=== PATIENT | male | born 1950 | race Caucasian/White ===

== ENCOUNTER 2016-11-12 10:01 | Outpatient (CLI) | payer MEDICARE, OTHER ==
[2016-09-15 00:21] VITALS: BP 92/73
[~2016-11-12 10:01] MED LIST: MEROPENEM 1,000 MG IV.SOLN. IV ONE
[2016-11-12] MEDS: SODIUM CHLORIDE 0.9% IV SCH ×2 (14:37→21:00)
[2016-11-12] MEDS: HEPARIN SODIUM,PORCINE 30 UNITS INJ IV SCH ×2 (14:37→21:50)
[2016-11-12] MEDS: MEROPENEM IV SCH ×2 (14:37→21:00)
[2016-11-12] MEDS: 0.9 % SODIUM CHLORIDE 50 ML IV SCH ×2 (14:37→21:25)
[2016-11-12] MEDS: SALINE FLUSH 10 ML DISP.SYRIN IVF SCH ×2 (14:37→21:00)
== END 2016-11-12 10:02 ==
LOC: INF 10:01
PROVIDERS: ATTEND Internal Medicine
DX: T82.7XXA Infection and inflammatory reaction due to other cardiac and vascular devices, implants and grafts, initial encounter (principal); R53.81 Other malaise; R50.9 Fever, unspecified; Z79.01 Long term (current) use of anticoagulants; Y92.9 Unspecified place or not applicable; Y93.9 Activity, unspecified
CPT/HCPCS: 96365; 96366; J2185

== ENCOUNTER 2016-11-13 10:28 | Outpatient (CLI) | payer MEDICARE, OTHER ==
[2016-09-15 00:21] VITALS: BP 92/73
[~2016-11-13 10:28] MED LIST changes: +0.9 % SODIUM CHLORIDE 50 ML IV SCH; +HEPARIN SODIUM,PORCINE 30 UNITS INJ IV SCH; +MEROPENEM IV SCH; +SALINE FLUSH 10 ML DISP.SYRIN IVF SCH; +SODIUM CHLORIDE 0.9% IV SCH
[2016-11-13 10:51] LABS: BASOPHILS % 0.2 (0.0-1.5); EOSINOPHILS % 0.9 % (0.0-6.8); LYMPHOCYTES # 1.7 # k/uL (0.6-4.0); MEAN CORPUSCULAR HEMOGLOBIN 23.8 pg (28.0-34.0); MONOCYTES # 0.4 # k/uL (0.0-0.9); MONOCYTES % 3.9 % (0.0-11.0); NEUTROPHILS # 8.7 # k/uL (1.4-7.7)
[2016-11-13 11:17] LABS: eGFR (African) > 60; eGFR (Non-African) 50
== END 2016-11-13 10:30 ==
LOC: INF 10:28
PROVIDERS: ATTEND Internal Medicine
DX: T82.7XXA Infection and inflammatory reaction due to other cardiac and vascular devices, implants and grafts, initial encounter (principal); R53.81 Other malaise; R50.9 Fever, unspecified; Z79.01 Long term (current) use of anticoagulants; Y92.9 Unspecified place or not applicable; Y93.9 Activity, unspecified
CPT/HCPCS: 36415; 80053; 83615; 85025; 85610; 96365; 96366; J2185

== ENCOUNTER 2016-11-14 09:49 | Outpatient (CLI) | payer MEDICARE, OTHER ==
[2016-09-15 00:21] VITALS: BP 92/73
[~2016-11-14 09:49] MED LIST changes: +0.9 % SODIUM CHLORIDE 50 ML IV ONE; -0.9 % SODIUM CHLORIDE 50 ML IV SCH; -HEPARIN SODIUM,PORCINE 30 UNITS INJ IV SCH; -MEROPENEM IV SCH; -SALINE FLUSH 10 ML DISP.SYRIN IVF SCH; -SODIUM CHLORIDE 0.9% IV SCH
[2016-11-14] MEDS: SALINE FLUSH 10 ML DISP.SYRIN IVF SCH ×2 (10:14→23:03)
[2016-11-14] MEDS: SODIUM CHLORIDE 0.9% IV SCH ×2 (10:15→23:03)
[2016-11-14] MEDS: MEROPENEM IV SCH ×2 (10:15→23:03)
[2016-11-14] MEDS: HEPARIN SODIUM,PORCINE 30 UNITS INJ IV SCH ×2 (11:10→23:04)
[2016-11-14] MEDS: 0.9 % SODIUM CHLORIDE 50 ML IV SCH ×2 (11:40→23:04)
== END 2016-11-14 09:50 ==
LOC: INF 09:49
PROVIDERS: ATTEND Internal Medicine
DX: T82.7XXA Infection and inflammatory reaction due to other cardiac and vascular devices, implants and grafts, initial encounter (principal); R53.81 Other malaise; R50.9 Fever, unspecified; Z79.01 Long term (current) use of anticoagulants; Y92.9 Unspecified place or not applicable; Y93.9 Activity, unspecified
CPT/HCPCS: 96365; 96366; J2185

== ENCOUNTER 2016-11-15 09:42 | Outpatient (CLI) | payer MEDICARE, OTHER ==
[2016-09-15 00:21] VITALS: BP 92/73
[~2016-11-15 09:42] MED LIST changes: +0.9 % SODIUM CHLORIDE 100 ML IV.SOLN IV ONE; -0.9 % SODIUM CHLORIDE 50 ML IV ONE; +0.9 % SODIUM CHLORIDE 50 ML IV.SOLN IV ONE; +HEPARIN SODIUM,PORCINE 30 UNITS INJ IV ONE; +SALINE FLUSH 10 ML DISP.SYRIN IVF ONE
[2016-11-15] MEDS: SODIUM CHLORIDE 0.9% IV SCH ×2 (10:15→22:02)
[2016-11-15] MEDS: MEROPENEM IV SCH ×2 (10:15→22:02)
[2016-11-15] MEDS: SALINE FLUSH 10 ML DISP.SYRIN IVF SCH ×2 (10:16→22:03)
[2016-11-15] MEDS: 0.9 % SODIUM CHLORIDE 50 ML IV SCH ×2 (10:36→22:03)
[2016-11-15] MEDS: HEPARIN SODIUM,PORCINE 30 UNITS INJ IV SCH ×2 (10:37→22:04)
== END 2016-11-15 22:00 | disposition home or self-care (01) ==
LOC: INF 09:42
PROVIDERS: ATTEND Internal Medicine
DX: T82.7XXA Infection and inflammatory reaction due to other cardiac and vascular devices, implants and grafts, initial encounter (principal); R53.81 Other malaise; R50.9 Fever, unspecified; Z79.01 Long term (current) use of anticoagulants; Y92.9 Unspecified place or not applicable; Y93.9 Activity, unspecified
CPT/HCPCS: 96365; 96366; J2185

== ENCOUNTER 2016-11-16 09:49 | Outpatient (CLI) | payer MEDICARE, OTHER ==
[2016-09-15 00:21] VITALS: BP 92/73
[2016-11-16] MEDS: SODIUM CHLORIDE 0.9% IV SCH ×2 (10:09→21:54)
[2016-11-16] MEDS: MEROPENEM IV SCH ×2 (10:09→21:54)
[2016-11-16] MEDS: SALINE FLUSH 10 ML DISP.SYRIN IVF SCH ×2 (10:10→21:55)
[2016-11-16] MEDS: 0.9 % SODIUM CHLORIDE 50 ML IV SCH ×2 (10:46→21:55)
[2016-11-16] MEDS: HEPARIN SODIUM,PORCINE 30 UNITS INJ IV SCH ×2 (10:46→21:54)
== END 2016-11-16 09:50 ==
LOC: INF 09:49
PROVIDERS: ATTEND Internal Medicine
DX: T82.7XXA Infection and inflammatory reaction due to other cardiac and vascular devices, implants and grafts, initial encounter (principal); R53.81 Other malaise; R50.9 Fever, unspecified; Z79.01 Long term (current) use of anticoagulants; Y92.9 Unspecified place or not applicable; Y93.9 Activity, unspecified
CPT/HCPCS: 96365; 96366; J2185

== ENCOUNTER 2016-11-17 12:57 | Outpatient (CLI) | payer MEDICARE, OTHER ==
[2016-09-15 00:21] VITALS: BP 92/73
[~2016-11-17 12:57] MED LIST changes: +0.9 % SODIUM CHLORIDE 50 ML IV SCH; +HEPARIN SODIUM,PORCINE 30 UNITS INJ IV SCH; +MEROPENEM IV SCH; +SALINE FLUSH 10 ML DISP.SYRIN IVF SCH; +SODIUM CHLORIDE 0.9% IV SCH
== END 2016-11-17 14:00 ==
LOC: INF 12:57
PROVIDERS: ATTEND Internal Medicine
DX: T82.7XXA Infection and inflammatory reaction due to other cardiac and vascular devices, implants and grafts, initial encounter (principal); R53.81 Other malaise; R50.9 Fever, unspecified; Z79.01 Long term (current) use of anticoagulants; Y92.9 Unspecified place or not applicable; Y93.9 Activity, unspecified
CPT/HCPCS: 96365; 96366; J2185

== ENCOUNTER 2016-11-18 12:11 | Outpatient (CLI) | payer MEDICARE, OTHER ==
[2016-09-15 00:21] VITALS: BP 92/73
[~2016-11-18 12:11] MED LIST changes: -0.9 % SODIUM CHLORIDE 50 ML IV SCH; -HEPARIN SODIUM,PORCINE 30 UNITS INJ IV SCH; -MEROPENEM IV SCH; -SALINE FLUSH 10 ML DISP.SYRIN IVF SCH; -SODIUM CHLORIDE 0.9% IV SCH
[2016-11-18] MEDS: SALINE FLUSH 10 ML DISP.SYRIN IVF SCH ×2 (13:26→22:00)
[2016-11-18] MEDS: HEPARIN SODIUM,PORCINE 30 UNITS INJ IV SCH ×2 (13:26→23:03)
[2016-11-18] MEDS: MEROPENEM IV SCH ×2 (13:27→22:00)
[2016-11-18] MEDS: SODIUM CHLORIDE 0.9% IV SCH ×2 (13:27→22:00)
[2016-11-18] MEDS: 0.9 % SODIUM CHLORIDE 50 ML IV SCH ×2 (13:28→22:25)
== END 2016-11-18 12:12 ==
LOC: INF 12:11
PROVIDERS: ATTEND Internal Medicine
DX: T82.7XXA Infection and inflammatory reaction due to other cardiac and vascular devices, implants and grafts, initial encounter (principal); R53.81 Other malaise; R50.9 Fever, unspecified; Z79.01 Long term (current) use of anticoagulants; Y92.9 Unspecified place or not applicable; Y93.9 Activity, unspecified
CPT/HCPCS: 96365; 96366; J2185

== ENCOUNTER 2016-11-19 13:19 | Outpatient (CLI) | payer MEDICARE, OTHER ==
[2016-09-15 00:21] VITALS: BP 92/73
[~2016-11-19 13:19] MED LIST changes: +0.9 % SODIUM CHLORIDE 50 ML IV ONE; +0.9 % SODIUM CHLORIDE 50 ML IV SCH; +HEPARIN SODIUM,PORCINE 30 UNITS INJ IV SCH; +MEROPENEM IV SCH; +SALINE FLUSH 10 ML DISP.SYRIN IVF SCH; +SODIUM CHLORIDE 0.9% IV SCH
== END 2016-11-19 13:20 ==
LOC: INF 13:19
PROVIDERS: ATTEND Internal Medicine
DX: T82.7XXA Infection and inflammatory reaction due to other cardiac and vascular devices, implants and grafts, initial encounter (principal); R53.81 Other malaise; R50.9 Fever, unspecified; Z79.01 Long term (current) use of anticoagulants; Y92.9 Unspecified place or not applicable; Y93.9 Activity, unspecified
CPT/HCPCS: 96365; 96366; J2185

== ENCOUNTER 2016-11-20 09:39 | Outpatient (CLI) | payer MEDICARE, OTHER ==
[2016-09-15 00:21] VITALS: BP 92/73
[2016-11-20 10:09] LABS: BASOPHILS % 0.2 (0.0-1.5); EOSINOPHILS % 0.9 % (0.0-6.8); LYMPHOCYTES # 1.6 # k/uL (0.6-4.0); MEAN CORPUSCULAR HEMOGLOBIN 23.2 pg (28.0-34.0); MONOCYTES # 0.4 # k/uL (0.0-0.9); MONOCYTES % 4.5 % (0.0-11.0); NEUTROPHILS # 7.2 # k/uL (1.4-7.7)
[2016-11-20 10:48] LABS: eGFR (African) > 60; eGFR (Non-African) > 60
== END 2016-11-20 09:40 ==
LOC: INF 09:39
PROVIDERS: ATTEND Internal Medicine
DX: T82.7XXA Infection and inflammatory reaction due to other cardiac and vascular devices, implants and grafts, initial encounter (principal); R53.81 Other malaise; R50.9 Fever, unspecified; Z79.01 Long term (current) use of anticoagulants; Y92.9 Unspecified place or not applicable; Y93.9 Activity, unspecified
CPT/HCPCS: 36415; 80053; 83615; 85025; 85610; J2185

== ENCOUNTER 2016-11-21 11:06 | Outpatient (CLI) | payer MEDICARE, OTHER ==
[2016-09-15 00:21] VITALS: BP 92/73
[~2016-11-21 11:06] MED LIST changes: -0.9 % SODIUM CHLORIDE 50 ML IV ONE; +PENTAMIDINE ISETHIONATE 300 MG NEB SCH
== END 2016-11-21 11:08 ==
LOC: INF 11:06
PROVIDERS: ATTEND Internal Medicine
DX: T82.7XXA Infection and inflammatory reaction due to other cardiac and vascular devices, implants and grafts, initial encounter (principal); R53.81 Other malaise; R50.9 Fever, unspecified; J84.89 Other specified interstitial pulmonary diseases; Z41.8 Encounter for other procedures for purposes other than remedying health state; Z79.01 Long term (current) use of anticoagulants
CPT/HCPCS: 94640; 94760; 96365; 96366; J2185

== ENCOUNTER 2016-11-22 09:59 | Outpatient (CLI) | payer MEDICARE, OTHER ==
[2016-09-15 00:21] VITALS: BP 92/73
[~2016-11-22 09:59] MED LIST changes: -0.9 % SODIUM CHLORIDE 50 ML IV SCH; -HEPARIN SODIUM,PORCINE 30 UNITS INJ IV SCH; -MEROPENEM IV SCH; -PENTAMIDINE ISETHIONATE 300 MG NEB SCH; -SALINE FLUSH 10 ML DISP.SYRIN IVF SCH; -SODIUM CHLORIDE 0.9% IV SCH
[2016-11-22] MEDS: SALINE FLUSH 10 ML DISP.SYRIN IVF SCH ×2 (10:15→21:09)
[2016-11-22] MEDS: SODIUM CHLORIDE 0.9% IV SCH ×2 (10:15→21:10)
[2016-11-22] MEDS: MEROPENEM IV SCH ×2 (10:15→21:10)
[2016-11-22] MEDS: 0.9 % SODIUM CHLORIDE 50 ML IV SCH ×2 (10:45→21:41)
[2016-11-22] MEDS: HEPARIN SODIUM,PORCINE 30 UNITS INJ IV SCH ×2 (10:55→21:50)
== END 2016-11-22 10:00 ==
LOC: INF 09:59
PROVIDERS: ATTEND Internal Medicine
DX: T82.7XXA Infection and inflammatory reaction due to other cardiac and vascular devices, implants and grafts, initial encounter (principal); R53.81 Other malaise; R50.9 Fever, unspecified; Z79.01 Long term (current) use of anticoagulants; Y92.9 Unspecified place or not applicable; Y93.9 Activity, unspecified
CPT/HCPCS: 96365; 96366; J2185

== ENCOUNTER 2016-11-23 09:23 | Outpatient (CLI) | payer MEDICARE, OTHER ==
[2016-09-15 00:21] VITALS: BP 92/73
[2016-11-23] MEDS: MEROPENEM IV SCH ×2 (11:03→22:29)
[2016-11-23] MEDS: SODIUM CHLORIDE 0.9% IV SCH ×2 (11:03→22:29)
[2016-11-23] MEDS: HEPARIN SODIUM,PORCINE 30 UNITS INJ IV SCH ×2 (11:03→22:30)
[2016-11-23] MEDS: SALINE FLUSH 10 ML DISP.SYRIN IVF SCH ×2 (11:04→22:28)
[2016-11-23] MEDS: 0.9 % SODIUM CHLORIDE 50 ML IV SCH ×2 (11:04→22:30)
== END 2016-11-23 22:15 | disposition home or self-care (01) ==
LOC: INF 09:23
PROVIDERS: ATTEND Internal Medicine
DX: T82.7XXA Infection and inflammatory reaction due to other cardiac and vascular devices, implants and grafts, initial encounter (principal); R53.81 Other malaise; R50.9 Fever, unspecified; Z79.01 Long term (current) use of anticoagulants; Y92.9 Unspecified place or not applicable; Y93.9 Activity, unspecified
CPT/HCPCS: 96365; 96366; J2185

== ENCOUNTER 2016-11-24 12:23 | Outpatient (CLI) | payer MEDICARE, OTHER ==
[2016-09-15 00:21] VITALS: BP 92/73
[2016-11-24] MEDS: SALINE FLUSH 10 ML DISP.SYRIN IVF SCH ×2 (12:53→22:39)
[2016-11-24] MEDS: MEROPENEM IV SCH ×2 (12:54→22:38)
[2016-11-24] MEDS: SODIUM CHLORIDE 0.9% IV SCH ×2 (12:54→22:38)
[2016-11-24] MEDS: 0.9 % SODIUM CHLORIDE 50 ML IV SCH ×2 (13:35→22:39)
[2016-11-24] MEDS: HEPARIN SODIUM,PORCINE 30 UNITS INJ IV SCH ×2 (13:45→22:38)
== END 2016-11-24 12:24 ==
LOC: INF 12:23
PROVIDERS: ATTEND Internal Medicine
DX: T82.7XXA Infection and inflammatory reaction due to other cardiac and vascular devices, implants and grafts, initial encounter (principal); R53.81 Other malaise; R50.9 Fever, unspecified; Z79.01 Long term (current) use of anticoagulants; Y92.9 Unspecified place or not applicable; Y93.9 Activity, unspecified
CPT/HCPCS: 96365; 96366; J2185

== ENCOUNTER 2016-11-25 13:44 | Outpatient (CLI) | payer MEDICARE, OTHER ==
[2016-09-15 00:21] VITALS: BP 92/73
[2016-11-25] MEDS: SODIUM CHLORIDE 0.9% IV SCH ×2 (14:50→21:44)
[2016-11-25] MEDS: MEROPENEM IV SCH ×2 (14:50→21:44)
[2016-11-25] MEDS: SALINE FLUSH 10 ML DISP.SYRIN IVF SCH ×2 (14:50→21:44)
[2016-11-25] MEDS: 0.9 % SODIUM CHLORIDE 50 ML IV SCH ×2 (15:35→22:22)
[2016-11-25] MEDS: HEPARIN SODIUM,PORCINE 30 UNITS INJ IV SCH ×2 (15:45→22:23)
== END 2016-11-25 13:45 ==
LOC: INF 13:44
PROVIDERS: ATTEND Internal Medicine
DX: T82.7XXA Infection and inflammatory reaction due to other cardiac and vascular devices, implants and grafts, initial encounter (principal); R53.81 Other malaise; R50.9 Fever, unspecified; Z79.01 Long term (current) use of anticoagulants; Y92.9 Unspecified place or not applicable; Y93.9 Activity, unspecified
CPT/HCPCS: 96365; 96366; J2185

== ENCOUNTER 2016-11-26 11:08 | Outpatient (CLI) | payer MEDICARE, OTHER ==
[2016-09-15 00:21] VITALS: BP 92/73
[~2016-11-26 11:08] MED LIST changes: +0.9 % SODIUM CHLORIDE 50 ML IV ONE
[2016-11-26] MEDS: SALINE FLUSH 10 ML DISP.SYRIN IVF SCH ×2 (11:31→23:17)
[2016-11-26] MEDS: SODIUM CHLORIDE 0.9% IV SCH ×2 (11:31→23:17)
[2016-11-26] MEDS: MEROPENEM IV SCH ×2 (11:31→23:17)
[2016-11-26] MEDS: 0.9 % SODIUM CHLORIDE 50 ML IV SCH ×2 (11:55→23:17)
[2016-11-26] MEDS: HEPARIN SODIUM,PORCINE 30 UNITS INJ IV SCH ×2 (12:05→23:18)
[2016-11-26 13:51] LABS: BASOPHILS % 0.2 (0.0-1.5); EOSINOPHILS % 0.7 % (0.0-6.8); LYMPHOCYTES # 0.5 # k/uL (0.6-4.0); MEAN CORPUSCULAR HEMOGLOBIN 23.6 pg (28.0-34.0); MONOCYTES # 0.3 # k/uL (0.0-0.9); MONOCYTES % 3.6 % (0.0-11.0); NEUTROPHILS # 7.2 # k/uL (1.4-7.7)
[2016-11-26 13:55] LABS: eGFR (African) > 60; eGFR (Non-African) 59
== END 2016-11-26 11:10 ==
LOC: INF 11:08
PROVIDERS: ATTEND Internal Medicine
DX: T82.7XXA Infection and inflammatory reaction due to other cardiac and vascular devices, implants and grafts, initial encounter (principal); R53.81 Other malaise; R50.9 Fever, unspecified; Z79.01 Long term (current) use of anticoagulants; Y92.9 Unspecified place or not applicable; Y93.9 Activity, unspecified
CPT/HCPCS: 80053; 83880; 85025; J2185; 96365; 96366

== ENCOUNTER 2016-11-26 12:30 | Outpatient (CLI) | payer MEDICARE, OTHER ==
[2016-09-15 00:21] VITALS: BP 92/73
--- NOTE | 2016-11-26 16:59 | Diagnostic Imaging Report ---
[facility] [address] [facility].[address] [address] ~ ~ ~ ~ Report Submission Date: Nov 26, 2016 12:59:05 PM NURSES' REGISTRY DIRECTOR Patient ~ Study Name: ERVIN ROJAS ~ Date: Nov 26, 2016 12:41:29 PM NURSES' REGISTRY DIRECTOR ~ Modality Type: CR Gender: M ~ Description: CHEST : 52 ~ Institution: [facility] Physician: FAVIAN LIRA ~ ~ ~ ~ Chest 2 views History: Shortness of breath Findings: Cardiomegaly, pulmonary vascular congestion, and mild pulmonary edema are observed. A left ventricular assist device, dual lead implantable cardiac defibrillator, right atrial catheter, median sternotomy, and multilevel cervical fusion hardware are observed. There is no pleural effusion or confluent air space infiltrate. Impression: Mild congestive heart failure and extensive postoperative change. Lung volumes have increased since the August 06, 2016 exam. ~ Electronically signed on Nov 26, 2016 12:59:05 PM NURSES' REGISTRY DIRECTOR by: Abraham ANGELA
== END 2016-11-26 12:31 ==
LOC: RAD 12:30
PROVIDERS: ATTEND Nurse Practitioner
DX: R06.02 Shortness of breath (principal); I50.22 Chronic systolic (congestive) heart failure
CPT/HCPCS: 71020; 85610

== ENCOUNTER 2016-11-27 10:03 | Outpatient (CLI) | payer MEDICARE, OTHER ==
[2016-09-15 00:21] VITALS: BP 92/73
[~2016-11-27 10:03] MED LIST changes: +0.9 % SODIUM CHLORIDE 50 ML IV SCH; +HEPARIN SODIUM,PORCINE 30 UNITS INJ IV SCH; +MEROPENEM IV SCH; +SALINE FLUSH 10 ML DISP.SYRIN IVF SCH; +SODIUM CHLORIDE 0.9% IV SCH
== END 2016-11-27 10:04 ==
LOC: INF 10:03
PROVIDERS: ATTEND Internal Medicine
DX: T82.7XXA Infection and inflammatory reaction due to other cardiac and vascular devices, implants and grafts, initial encounter (principal); R53.81 Other malaise; R50.9 Fever, unspecified; Z79.01 Long term (current) use of anticoagulants; Y92.9 Unspecified place or not applicable; Y93.9 Activity, unspecified
CPT/HCPCS: 96365; 96366; J2185

== ENCOUNTER 2016-11-28 11:30 | Outpatient (CLI) | payer MEDICARE, OTHER ==
[2016-09-15 00:21] VITALS: BP 92/73
[~2016-11-28 11:30] MED LIST changes: -0.9 % SODIUM CHLORIDE 50 ML IV ONE; -0.9 % SODIUM CHLORIDE 50 ML IV SCH; -HEPARIN SODIUM,PORCINE 30 UNITS INJ IV SCH; -MEROPENEM IV SCH; -SALINE FLUSH 10 ML DISP.SYRIN IVF SCH; -SODIUM CHLORIDE 0.9% IV SCH
[2016-11-28] MEDS: HEPARIN SODIUM,PORCINE 30 UNITS INJ IV SCH ×2 (18:13→22:50)
[2016-11-28] MEDS: MEROPENEM IV SCH ×2 (18:14→22:00)
[2016-11-28] MEDS: SODIUM CHLORIDE 0.9% IV SCH ×2 (18:14→22:00)
[2016-11-28] MEDS: SALINE FLUSH 10 ML DISP.SYRIN IVF SCH ×2 (18:16→22:00)
[2016-11-28] MEDS: 0.9 % SODIUM CHLORIDE 50 ML IV SCH ×2 (18:16→22:25)
== END 2016-11-28 11:32 ==
LOC: INF 11:30
PROVIDERS: ATTEND Internal Medicine
DX: T82.7XXA Infection and inflammatory reaction due to other cardiac and vascular devices, implants and grafts, initial encounter (principal); R53.81 Other malaise; R50.9 Fever, unspecified; Z79.01 Long term (current) use of anticoagulants; Y92.9 Unspecified place or not applicable; Y93.9 Activity, unspecified
CPT/HCPCS: 96365; 96366; J2185

== ENCOUNTER 2016-11-29 10:00 | Outpatient (CLI) | payer MEDICARE, OTHER ==
[2016-09-15 00:21] VITALS: BP 92/73
[~2016-11-29 10:00] MED LIST changes: +0.9 % SODIUM CHLORIDE 50 ML IV SCH; +HEPARIN SODIUM,PORCINE 30 UNITS INJ IV SCH; +MEROPENEM IV SCH; +SALINE FLUSH 10 ML DISP.SYRIN IVF SCH; +SODIUM CHLORIDE 0.9% IV SCH
== END 2016-11-29 10:02 ==
LOC: INF 10:00
PROVIDERS: ATTEND Internal Medicine
DX: T82.7XXA Infection and inflammatory reaction due to other cardiac and vascular devices, implants and grafts, initial encounter (principal); R53.81 Other malaise; R50.9 Fever, unspecified; Z79.01 Long term (current) use of anticoagulants; Y92.9 Unspecified place or not applicable; Y93.9 Activity, unspecified
CPT/HCPCS: 96365; 96366; J2185

== ENCOUNTER 2016-11-30 12:25 | Outpatient (CLI) | payer MEDICARE, OTHER ==
[2016-09-15 00:21] VITALS: BP 92/73
[~2016-11-30 12:25] MED LIST changes: +0.9 % SODIUM CHLORIDE 50 ML IV ONE
== END 2016-11-30 12:26 ==
LOC: INF 12:25
PROVIDERS: ATTEND Internal Medicine
DX: T82.7XXA Infection and inflammatory reaction due to other cardiac and vascular devices, implants and grafts, initial encounter (principal); R53.81 Other malaise; R50.9 Fever, unspecified; Z79.01 Long term (current) use of anticoagulants; Y92.9 Unspecified place or not applicable; Y93.9 Activity, unspecified
CPT/HCPCS: 96365; J2185

== ENCOUNTER 2016-12-01 02:45 | Outpatient (CLI) | payer MEDICARE, OTHER ==
[2016-09-15 00:21] VITALS: BP 92/73
[2016-12-01] MEDS ORDERED: SALINE FLUSH 10 ML DISP.SYRIN IVF ONE (08:00)
[2016-12-01] MEDS ORDERED: 0.9 % SODIUM CHLORIDE 100 ML IV.SOLN IV ONE (08:00)
[2016-12-01] MEDS ORDERED: HEPARIN SODIUM,PORCINE 30 UNITS INJ IV ONE (08:00)
[2016-12-01] MEDS ORDERED: MEROPENEM 1,000 MG IV.SOLN. IV ONE (08:00)
[2016-12-01] MEDS ORDERED: 0.9 % SODIUM CHLORIDE 50 ML IV.SOLN IV ONE (08:00)
[2016-12-01] MEDS ORDERED: SALINE FLUSH 10 ML DISP.SYRIN IVF SCH (09:00)
[2016-12-01] MEDS ORDERED: SODIUM CHLORIDE 0.9% IV SCH (09:00)
[2016-12-01] MEDS ORDERED: MEROPENEM IV SCH (09:00)
[2016-12-01] MEDS ORDERED: 0.9 % SODIUM CHLORIDE 50 ML IV SCH (09:00)
[2016-12-01] MEDS ORDERED: HEPARIN SODIUM,PORCINE 30 UNITS INJ IV SCH (09:00)
== END 2016-12-01 02:46 ==
LOC: INF 02:45
PROVIDERS: ATTEND Internal Medicine
DX: T82.7XXA Infection and inflammatory reaction due to other cardiac and vascular devices, implants and grafts, initial encounter (principal); R53.81 Other malaise; R50.9 Fever, unspecified; Z79.01 Long term (current) use of anticoagulants; Y92.9 Unspecified place or not applicable; Y93.9 Activity, unspecified
CPT/HCPCS: 96365; 96366; J2185

== ENCOUNTER 2016-12-02 10:13 | Outpatient (CLI) | payer MEDICARE, OTHER ==
[2016-09-15 00:21] VITALS: BP 92/73
[~2016-12-02 10:13] MED LIST changes: -0.9 % SODIUM CHLORIDE 50 ML IV ONE; -0.9 % SODIUM CHLORIDE 50 ML IV SCH; -HEPARIN SODIUM,PORCINE 30 UNITS INJ IV SCH; -MEROPENEM IV SCH; -SALINE FLUSH 10 ML DISP.SYRIN IVF SCH; -SODIUM CHLORIDE 0.9% IV SCH
[2016-12-02] MEDS: SALINE FLUSH 10 ML DISP.SYRIN IVF SCH ×2 (10:34→21:15)
[2016-12-02] MEDS: MEROPENEM IV SCH ×2 (10:35→21:15)
[2016-12-02] MEDS: SODIUM CHLORIDE 0.9% IV SCH ×2 (10:35→21:15)
[2016-12-02] MEDS: 0.9 % SODIUM CHLORIDE 50 ML IV SCH ×2 (11:14→21:40)
[2016-12-02] MEDS: HEPARIN SODIUM,PORCINE 30 UNITS INJ IV SCH ×2 (11:15→22:05)
== END 2016-12-02 10:14 ==
LOC: INF 10:13
PROVIDERS: ATTEND Internal Medicine
DX: T82.7XXA Infection and inflammatory reaction due to other cardiac and vascular devices, implants and grafts, initial encounter (principal); R53.81 Other malaise; R50.9 Fever, unspecified; Z79.01 Long term (current) use of anticoagulants; Y92.9 Unspecified place or not applicable; Y93.9 Activity, unspecified
CPT/HCPCS: 96365; 96366; J2185

== ENCOUNTER 2016-12-03 11:17 | Outpatient (CLI) | payer MEDICARE, OTHER ==
[2016-09-15 00:21] VITALS: BP 92/73
[~2016-12-03 11:17] MED LIST changes: +0.9 % SODIUM CHLORIDE 50 ML IV ONE; +0.9 % SODIUM CHLORIDE 50 ML IV SCH; +HEPARIN SODIUM,PORCINE 30 UNITS INJ IV SCH; +MEROPENEM IV SCH; +SALINE FLUSH 10 ML DISP.SYRIN IVF SCH; +SODIUM CHLORIDE 0.9% IV SCH
== END 2016-12-03 11:18 ==
LOC: INF 11:17
PROVIDERS: ATTEND Internal Medicine
DX: T82.7XXA Infection and inflammatory reaction due to other cardiac and vascular devices, implants and grafts, initial encounter (principal); R53.81 Other malaise; R50.9 Fever, unspecified; Z79.01 Long term (current) use of anticoagulants; Y92.9 Unspecified place or not applicable; Y93.9 Activity, unspecified
CPT/HCPCS: 96365; 96366; J2185

== ENCOUNTER 2016-12-04 13:41 | Outpatient (CLI) | payer MEDICARE, OTHER ==
[2016-09-15 00:21] VITALS: BP 92/73
[~2016-12-04 13:41] MED LIST changes: -0.9 % SODIUM CHLORIDE 50 ML IV ONE; -0.9 % SODIUM CHLORIDE 50 ML IV SCH; -HEPARIN SODIUM,PORCINE 30 UNITS INJ IV SCH; -MEROPENEM IV SCH; -SALINE FLUSH 10 ML DISP.SYRIN IVF SCH; -SODIUM CHLORIDE 0.9% IV SCH
[2016-12-04 14:06] LABS: BASOPHILS % 0.3 (0.0-1.5); LYMPHOCYTES # 1.6 # k/uL (0.6-4.0); MEAN CORPUSCULAR HEMOGLOBIN 23.4 pg (28.0-34.0); MONOCYTES # 0.4 # k/uL (0.0-0.9); MONOCYTES % 4.1 % (0.0-11.0)
[2016-12-04 14:28] LABS: eGFR (African) > 60; eGFR (Non-African) 59
[2016-12-04] MEDS: HEPARIN SODIUM,PORCINE 30 UNITS INJ IV SCH (18:47)
[2016-12-04] MEDS: SODIUM CHLORIDE 0.9% IV SCH (18:48)
[2016-12-04] MEDS: SALINE FLUSH 10 ML DISP.SYRIN IVF SCH (18:48)
[2016-12-04] MEDS: 0.9 % SODIUM CHLORIDE 50 ML IV SCH (18:48)
[2016-12-04] MEDS: MEROPENEM IV SCH (18:48)
[2016-12-05] MEDS: MEROPENEM IV SCH (02:41)
[2016-12-05] MEDS: SODIUM CHLORIDE 0.9% IV SCH (02:41)
[2016-12-05] MEDS: SALINE FLUSH 10 ML DISP.SYRIN IVF SCH (02:41)
[2016-12-05] MEDS: 0.9 % SODIUM CHLORIDE 50 ML IV SCH (02:41)
[2016-12-05] MEDS: HEPARIN SODIUM,PORCINE 30 UNITS INJ IV SCH (02:42)
== END 2016-12-04 15:41 ==
LOC: INF 13:41
PROVIDERS: ATTEND Internal Medicine
DX: T82.7XXA Infection and inflammatory reaction due to other cardiac and vascular devices, implants and grafts, initial encounter (principal); R53.81 Other malaise; R50.9 Fever, unspecified; Z79.01 Long term (current) use of anticoagulants; Y92.9 Unspecified place or not applicable; Y93.9 Activity, unspecified
CPT/HCPCS: 36415; 80053; 83615; 85025; 85610; J2185; 96365; 96366

== ENCOUNTER 2016-12-05 11:34 | Outpatient (CLI) | payer MEDICARE, OTHER ==
[2016-09-15 00:21] VITALS: BP 92/73
[~2016-12-05 11:34] MED LIST changes: +0.9 % SODIUM CHLORIDE 50 ML IV ONE
[2016-12-05] MEDS: MEROPENEM IV SCH ×2 (13:51→21:05)
[2016-12-05] MEDS: SODIUM CHLORIDE 0.9% IV SCH ×2 (13:51→21:05)
[2016-12-05] MEDS: SALINE FLUSH 10 ML DISP.SYRIN IVF SCH ×2 (13:52→21:05)
[2016-12-05] MEDS: 0.9 % SODIUM CHLORIDE 50 ML IV SCH ×2 (14:02→21:30)
[2016-12-05] MEDS: HEPARIN SODIUM,PORCINE 30 UNITS INJ IV SCH ×2 (14:03→21:55)
== END 2016-12-05 11:44 ==
LOC: INF 11:34
PROVIDERS: ATTEND Internal Medicine
DX: T82.7XXA Infection and inflammatory reaction due to other cardiac and vascular devices, implants and grafts, initial encounter (principal); R53.81 Other malaise; R50.9 Fever, unspecified; Z79.01 Long term (current) use of anticoagulants; Y92.9 Unspecified place or not applicable; Y93.9 Activity, unspecified
CPT/HCPCS: 96365; 96366; J2185

== ENCOUNTER 2016-12-06 11:32 | Outpatient (CLI) | payer MEDICARE, OTHER ==
[2016-09-15 00:21] VITALS: BP 92/73
[~2016-12-06 11:32] MED LIST changes: -0.9 % SODIUM CHLORIDE 50 ML IV ONE; +0.9 % SODIUM CHLORIDE 50 ML IV SCH; +HEPARIN SODIUM,PORCINE 30 UNITS INJ IV SCH; +MEROPENEM IV SCH; +SALINE FLUSH 10 ML DISP.SYRIN IVF SCH; +SODIUM CHLORIDE 0.9% IV SCH
== END 2016-12-06 11:42 ==
LOC: INF 11:32
PROVIDERS: ATTEND Internal Medicine
DX: T82.7XXA Infection and inflammatory reaction due to other cardiac and vascular devices, implants and grafts, initial encounter (principal); R53.81 Other malaise; R50.9 Fever, unspecified; Z79.01 Long term (current) use of anticoagulants; Y92.9 Unspecified place or not applicable; Y93.9 Activity, unspecified
CPT/HCPCS: 96365; 96366; J2185

== ENCOUNTER 2016-12-07 10:02 | Outpatient (CLI) | payer MEDICARE, OTHER ==
[2016-09-15 00:21] VITALS: BP 92/73
[~2016-12-07 10:02] MED LIST changes: -0.9 % SODIUM CHLORIDE 50 ML IV SCH; -HEPARIN SODIUM,PORCINE 30 UNITS INJ IV SCH; -MEROPENEM IV SCH; -SALINE FLUSH 10 ML DISP.SYRIN IVF SCH; -SODIUM CHLORIDE 0.9% IV SCH
[2016-12-07] MEDS: SODIUM CHLORIDE 0.9% IV SCH ×2 (10:23→22:00)
[2016-12-07] MEDS: MEROPENEM IV SCH ×2 (10:23→22:00)
[2016-12-07] MEDS: SALINE FLUSH 10 ML DISP.SYRIN IVF SCH ×2 (17:43→22:00)
[2016-12-07] MEDS: HEPARIN SODIUM,PORCINE 30 UNITS INJ IV SCH ×2 (17:44→22:50)
[2016-12-07] MEDS: 0.9 % SODIUM CHLORIDE 50 ML IV SCH ×2 (17:45→22:25)
== END 2016-12-07 13:00 ==
LOC: INF 10:02
PROVIDERS: ATTEND Internal Medicine
DX: T82.7XXA Infection and inflammatory reaction due to other cardiac and vascular devices, implants and grafts, initial encounter (principal); R53.81 Other malaise; R50.9 Fever, unspecified; Z79.01 Long term (current) use of anticoagulants; Y92.9 Unspecified place or not applicable; Y93.9 Activity, unspecified
CPT/HCPCS: 96365; 96366; J2185

== ENCOUNTER 2016-12-08 10:02 | Outpatient (CLI) | payer MEDICARE, OTHER ==
[2016-09-15 00:21] VITALS: BP 92/73
[~2016-12-08 10:02] MED LIST changes: +0.9 % SODIUM CHLORIDE 50 ML IV SCH; +HEPARIN SODIUM,PORCINE 30 UNITS INJ IV SCH; +MEROPENEM IV SCH; +SALINE FLUSH 10 ML DISP.SYRIN IVF SCH; +SODIUM CHLORIDE 0.9% IV SCH
== END 2016-12-08 10:03 ==
LOC: INF 10:02
PROVIDERS: ATTEND Internal Medicine
DX: T82.7XXA Infection and inflammatory reaction due to other cardiac and vascular devices, implants and grafts, initial encounter (principal); R53.81 Other malaise; R50.9 Fever, unspecified; Z79.01 Long term (current) use of anticoagulants; Y92.9 Unspecified place or not applicable; Y93.9 Activity, unspecified
CPT/HCPCS: 96365; 96366; J2185

== ENCOUNTER 2016-12-09 10:11 | Outpatient (CLI) | payer MEDICARE, OTHER ==
[2016-09-15 00:21] VITALS: BP 92/73
[~2016-12-09 10:11] MED LIST changes: -0.9 % SODIUM CHLORIDE 50 ML IV SCH; -HEPARIN SODIUM,PORCINE 30 UNITS INJ IV SCH; -MEROPENEM IV SCH; -SALINE FLUSH 10 ML DISP.SYRIN IVF SCH; -SODIUM CHLORIDE 0.9% IV SCH
[2016-12-09] MEDS ORDERED: SALINE FLUSH 10 ML DISP.SYRIN IVF ONE (21:14)
[2016-12-09] MEDS ORDERED: 0.9 % SODIUM CHLORIDE 50 ML IV ONE (21:46)
== END 2016-12-09 10:12 ==
LOC: INF 10:11
PROVIDERS: ATTEND Family Medicine
DX: T82.7XXA Infection and inflammatory reaction due to other cardiac and vascular devices, implants and grafts, initial encounter (principal); R53.81 Other malaise; R50.9 Fever, unspecified; Z79.01 Long term (current) use of anticoagulants; Y92.9 Unspecified place or not applicable; Y93.9 Activity, unspecified
CPT/HCPCS: 96365; 96366; J2185

== ENCOUNTER 2016-12-10 10:53 | Outpatient (CLI) | payer MEDICARE, OTHER ==
[2016-09-15 00:21] VITALS: BP 92/73
[2016-12-10] MEDS ORDERED: HEPARIN SODIUM,PORCINE 30 UNITS INJ IV ONE (12:08)
== END 2016-12-10 10:54 ==
LOC: INF 10:53
PROVIDERS: ATTEND Family Medicine
DX: T82.7XXA Infection and inflammatory reaction due to other cardiac and vascular devices, implants and grafts, initial encounter (principal); R53.81 Other malaise; R50.9 Fever, unspecified; Z79.01 Long term (current) use of anticoagulants; Y92.9 Unspecified place or not applicable; Y93.9 Activity, unspecified
CPT/HCPCS: 96365; J2185

== ENCOUNTER 2016-12-10 12:26 | Emergency (ER) | payer MEDICARE, OTHER ==
[2016-12-10] MEDS ORDERED: HEPARIN SODIUM 500 UNIT/5 ML DISP.SYRIN IV ONE (12:37)
[2016-12-10 13:15] LABS: BASOPHILS % 0.2 (0.0-1.5); EOSINOPHILS % 1.5 % (0.0-6.8); LYMPHOCYTES # 0.5 # k/uL (0.6-4.0); MEAN CORPUSCULAR HEMOGLOBIN 23.1 pg (28.0-34.0); MONOCYTES # 0.3 # k/uL (0.0-0.9); MONOCYTES % 3.2 % (0.0-11.0); NEUTROPHILS # 7.6 # k/uL (1.4-7.7)
--- NOTE | 2016-12-10 13:19 | ED Physician Documentation ---
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 Pt presents with sob and chest pain with inspiration. No n/v. No diaphoresis.) - ROS CONST: weakness, other (malaise) EYES/ENT: none CVS/RESP: shortness of breath GI/: none MS/SKIN/LYMPH: none - PAST HX Past History: other (COPD, LVAD cardiac assist device Heart Mate II, chronic infection.) Surgeries/Procedures: other (cardiac assist device) Allergies/Adverse Reactions: Allergies Allergy/AdvReac Type Severity Reaction Status Date / Time Penicillins Allergy Verified 05/03/16 09:52 Sulfa (Sulfonamide Allergy Verified 05/03/16 09:52 Antibiotics) Home Medications: Ambulatory Orders Medication Instructions Recorded Metoprolol Tartrate [Lopressor] 12.5 mg PO DAILY 02/26/15 Aspirin [Oziel] 162 mg PO D 04/28/15 Esomeprazole Magnesium [Nexium] 40 mg PO DAILY 05/31/15 Phenylephrine HCl [Major-Prep 1 each RC BID PRN 05/31/15 Hemorrhoidal] Pramoxine HCl [Proctofoam] 15 gm TP BID PRN 05/31/15 Furosemide [Lasix] 40 mg PO DAILY PRN 07/08/15 Warfarin Sodium 4 mg PO DAILY 07/13/15 Losartan Potassium [Cozaar] 25 mg PO DAILY 08/05/15 - SOCIAL HX Smoking History: quit greater than 1 year - FAMILY HX Family History: No - VITAL SIGNS Vital Signs: Vital Signs Temp Pulse Resp BP Pulse Ox 97.4 F L 70 22 108/61 96 12/10/16 12:30 12/10/16 12:30 12/10/16 12:30 12/10/16 12:30 12/10/16 12:30 - REVIEWED ASSESSMENTS Nursing Assessment Reviewed: Yes Vitals Reviewed: Yes Progress - Progress Progress: CXR: There is mild pulmonary vascular congestion with perivascular and peribronchial cuffing. Right pleural effusion blunts the costophrenic angle. IMPRESSION: Increasing pulmonary vascular congestion and right effusion. Lasix 20 mg IV Transfer to [facility], Dr. Brown. - EKG/XRAY/CT EKG: NSR (HR=70; LAD; ND gajryaxj=123mn.) ED Results Lab/Radiology - Lab Results Lab Results: Lab Results 12/10/16 13:09 WBC 8.60 K/ul K/ul (4.00-12.00) RBC 3.44 M/ul L M/ul (3.90-5.20) Hgb 8.0 g/dL L g/dL (12.0-18.0) Hct 25.4 % L % (37.0-53.0) MCV 73.8 fl L fl (80.0-100.0) MCH 23.1 pg L pg (28.0-34.0) MCHC 31.4 g/dL g/dL (30.0-36.0) RDW 19.6 % H % (11.3-14.3) Plt Count 113 K/mm3 L K/mm3 (130-400) Neut % (Auto) 88.9 % H % (39.0-79.0) Lymph % (Auto) 5.9 % L % (16.0-50.0) [place] % (Auto) 3.2 % % (0.0-11.0) Eos % (Auto) 1.5 % % (0.0-6.8) Baso % (Auto) 0.2 (0.0-1.5) Neut # 7.6 # k/uL # k/uL (1.4-7.7) Lymph # 0.5 # k/uL L # k/uL (0.6-4.0) [place] # 0.3 # k/uL # k/uL (0.0-0.9) Eos # 0.1 # k/uL # k/uL (0.0-0.6) Baso # 0.0 # k/uL # k/uL (0.0-0.5) Reactive Lymphs % 0.4 % % (0.0-5.0) Reactive Lymphs # 0.0 # k/uL # k/uL (0.0-0.8) - Orders Orders: ED Orders Category Date Time Status Continuous EKG monitoring Q30M Care 12/10/16 12:50 Active Continuous Pulse Oximetry Q30M Care 12/10/16 12:[address] Saline Lock/IV NOW Care 12/10/16 12:50 Active CHEST 1 VIEW [RAD] Stat Exams 12/10/16 12:50 Ordered BNP [NT-proBNP] Stat Lab 12/10/16 13:08 Received CBC/PLATELET/DIFF Routine Lab 12/10/16 13:09 Completed CMP Routine Lab 12/10/16 13:09 Received CREATINE KINASE Routine Lab 12/10/16 13:09 Received TROPONIN I (cTnI) Stat Lab 12/10/16 13:08 Received Heparin Sodium [Heparin] Med 12/10/16 12:37 Discontinued 500 unit IV .STK-MED ONE Oxygen Daily Oxygen 12/10/16 13:00 Ordered EKG WITH COMPARISON Stat Ther 12/10/16 12:50 Ordered General Adult Physical Exam - PHYSICAL EXAM GENERAL APPEARANCE: mild distress EENT: eye inspection normal, pharynx normal NECK: normal inspection, supple RESPIRATORY: other (distant heart sounds) CVS: reg rate & rhythm, heart sounds normal ABDOMEN: soft, no organomegaly, normal bowel sounds BACK: normal inspection, no CVA tenderness SKIN: warm/dry, normal color EXTREMITIES: non-tender, normal range of motion, no evidence of injury NEURO: oriented X3, motor nml, sensation nml Discharge Clincal Impression: LVAD (left ventricular assist device) present CHF (congestive heart failure) Qualifiers: Congestive heart failure type: unspecified congestive heart failure type Congestive heart failure chronicity: unspecified congestive heart failure chronicity Qualified Code(s): I50.9 - Heart failure, unspecified Anemia Qualifiers: Anemia type: other cause Other causes of anemia: other cause, not classified Qualified Code(s): D64.89 - Other specified anemias Referrals: Maricarmen Haider MD [Primary Care Provider] - 2 Days Home Medications: Ambulatory Orders Metoprolol Tartrate [Lopressor] 12.5 mg PO DAILY 02/26/15 Aspirin [Oziel] 162 mg PO D 04/28/15 Esomeprazole Magnesium [Nexium] 40 mg PO DAILY 05/31/15 Phenylephrine HCl [Major-Prep Hemorrhoidal] 1 each RC BID PRN 05/31/15 Pramoxine HCl [Proctofoam] 15 gm TP BID PRN 05/31/15 Furosemide [Lasix] 40 mg PO DAILY PRN 07/08/15 Warfarin Sodium 4 mg PO DAILY 07/13/15 Losartan Potassium [Cozaar] 25 mg PO DAILY 08/05/15 Condition: Stable Disposition: 02 XFER SHT-TRM HOSP Decision to Admit: NO Decision Time: 15:16
[2016-12-10 13:26] LABS: eGFR (African) > 60; eGFR (Non-African) > 60
[2016-12-10] MEDS ORDERED: FUROSEMIDE 20 MG/2 ML VIAL ONE (13:49)
[2016-12-10] MEDS ORDERED: FUROSEMIDE 20 MG/2 ML VIAL IVP SCH (14:00)
[2016-12-10 15:35] VITALS: BP 90/64
--- NOTE | 2016-12-10 17:08 | Diagnostic Imaging Report ---
[facility] [address] [facility] [address] [place], [place]. [address] ~ ~ ~ ~ Report Submission Date: Dec 10, 2016 1:11:53 PM TECHNICAL SOLUTIONS CONSULTANT Patient ~ Study Name: ERVIN ROJAS ~ Date: Dec 10, 2016 12:58:31 PM TECHNICAL SOLUTIONS CONSULTANT ~ Modality Type: CR Gender: M ~ Description: CHEST : 52 ~ Institution: [facility] Physician: ALICIA ZAVALA ~ ~ ~ ~ Chest -one view CLINICAL HISTORY: ~ Shortness of breath for 2 hr. FINDINGS: ~ Examination of the chest in single portable AP view 12/10/2016 1258 hr with comparison to examination 11/26/2016 demonstrates right central venous catheter without change. ~Postoperative changes consistent with cardiac assist device. ~ Transvenous pacemaker overlies the left hemithorax. ~There are multiple sternotomy wires. ~Cardiac silhouette is prominent and the aorta is atherosclerotic. ~There is mild pulmonary vascular congestion with perivascular and peribronchial cuffing. ~Right pleural effusion blunts the costophrenic angle. ~ IMPRESSION: ~ Increasing pulmonary vascular congestion and right effusion. ~ Electronically signed on Dec 10, 2016 1:11:53 PM TECHNICAL SOLUTIONS CONSULTANT by: Blaze ANGELA
== END 2016-12-10 15:20 | disposition short-term general hospital (02) ==
LOC: ED 12:26
DX: I50.9 Heart failure, unspecified (principal); D64.89 Other specified anemias; Z95.811 Presence of heart assist device
CPT/HCPCS: 71010; 80053; 82550; 83880; 84484; 85025; J1642; J1940; 96374; 96375; 96376; 99283

== ENCOUNTER 2016-12-15 21:41 | Outpatient (CLI) | payer MEDICARE, OTHER ==
[2016-12-15] MEDS ORDERED: 0.9 % SODIUM CHLORIDE 50 ML IV SCH (22:00)
[2016-12-15] MEDS ORDERED: HEPARIN SODIUM,PORCINE 30 UNITS INJ IV SCH (22:00)
[2016-12-15] MEDS ORDERED: SODIUM CHLORIDE 0.9% IV SCH (22:00)
[2016-12-15] MEDS ORDERED: MEROPENEM IV SCH (22:00)
== END 2016-12-15 21:42 ==
LOC: INF 21:41
PROVIDERS: ATTEND Internal Medicine
DX: T82.7XXA Infection and inflammatory reaction due to other cardiac and vascular devices, implants and grafts, initial encounter (principal); R53.81 Other malaise; R50.9 Fever, unspecified; Z79.01 Long term (current) use of anticoagulants
CPT/HCPCS: 96365; J2185

== ENCOUNTER 2016-12-16 10:10 | Outpatient (CLI) | payer MEDICARE, OTHER ==
[~2016-12-16 10:10] MED LIST changes: +0.9 % SODIUM CHLORIDE 50 ML IV SCH; +HEPARIN SODIUM,PORCINE 30 UNITS INJ IV SCH; +MEROPENEM IV SCH; +SALINE FLUSH 10 ML DISP.SYRIN IVF SCH; +SODIUM CHLORIDE 0.9% IV SCH
== END 2016-12-16 10:11 ==
LOC: INF 10:10
PROVIDERS: ATTEND Internal Medicine
DX: T82.7XXA Infection and inflammatory reaction due to other cardiac and vascular devices, implants and grafts, initial encounter (principal); R53.81 Other malaise; R50.9 Fever, unspecified; Z79.01 Long term (current) use of anticoagulants
CPT/HCPCS: 96365; 96366; J2185

== ENCOUNTER 2016-12-17 09:50 | Outpatient (CLI) | payer MEDICARE, OTHER ==
[~2016-12-17 09:50] MED LIST changes: -0.9 % SODIUM CHLORIDE 50 ML IV SCH; -HEPARIN SODIUM,PORCINE 30 UNITS INJ IV SCH; -MEROPENEM IV SCH; -SALINE FLUSH 10 ML DISP.SYRIN IVF SCH; -SODIUM CHLORIDE 0.9% IV SCH
[2016-12-17] MEDS: SODIUM CHLORIDE 0.9% IV SCH ×2 (11:25→22:07)
[2016-12-17] MEDS: MEROPENEM IV SCH ×2 (11:25→22:07)
[2016-12-17] MEDS: SALINE FLUSH 10 ML DISP.SYRIN IVF SCH ×2 (11:25→22:06)
[2016-12-17] MEDS: 0.9 % SODIUM CHLORIDE 50 ML IV SCH ×2 (12:15→22:39)
[2016-12-17] MEDS: HEPARIN SODIUM,PORCINE 30 UNITS INJ IV SCH ×2 (13:22→22:47)
== END 2016-12-17 09:52 ==
LOC: INF 09:50
PROVIDERS: ATTEND Internal Medicine
DX: T82.7XXA Infection and inflammatory reaction due to other cardiac and vascular devices, implants and grafts, initial encounter (principal); R53.81 Other malaise; R50.9 Fever, unspecified; Z79.01 Long term (current) use of anticoagulants
CPT/HCPCS: 96365; 96366; J2185

== ENCOUNTER 2016-12-18 11:04 | Outpatient (CLI) | payer MEDICARE, OTHER ==
[~2016-12-18 11:04] MED LIST changes: +0.9 % SODIUM CHLORIDE 50 ML IV SCH; +HEPARIN SODIUM,PORCINE 30 UNITS INJ IV SCH; +MEROPENEM IV SCH; +SALINE FLUSH 10 ML DISP.SYRIN IVF SCH; +SODIUM CHLORIDE 0.9% IV SCH
[2016-12-18 13:43] LABS: MEAN CORPUSCULAR HEMOGLOBIN 24.4 pg (28.0-34.0)
[2016-12-18 14:07] LABS: eGFR (African) > 60; eGFR (Non-African) 54
[2016-12-18 14:49] LABS: SEGMENTED NEUTROPHILS % 87 % (39-79)
[2016-12-18 14:50] LABS: ANISOCYTOSIS 1+ (NEGATIVE); BASOPHILS % 1 % (0-2); EOSINOPHILS % 2 % (0-7); MONOCYTES % 1 % (0-11)
== END 2016-12-18 11:05 ==
LOC: INF 11:04
PROVIDERS: ATTEND Internal Medicine
DX: T82.7XXA Infection and inflammatory reaction due to other cardiac and vascular devices, implants and grafts, initial encounter (principal); R53.81 Other malaise; R50.9 Fever, unspecified; Z79.01 Long term (current) use of anticoagulants
CPT/HCPCS: 36415; 80053; 85025; 85610; 96365; 96366; J2185

== ENCOUNTER 2016-12-19 11:04 | Outpatient (CLI) | payer MEDICARE, OTHER ==
[~2016-12-19 11:04] MED LIST changes: +PENTAMIDINE ISETHIONATE 300 MG NEB SCH
[2016-12-20] MEDS ORDERED: 0.9 % SODIUM CHLORIDE 50 ML IV SCH (09:00)
[2016-12-20] MEDS ORDERED: SODIUM CHLORIDE 0.9% IV SCH (09:00)
[2016-12-20] MEDS ORDERED: SALINE FLUSH 10 ML DISP.SYRIN IVF SCH (09:00)
[2016-12-20] MEDS ORDERED: HEPARIN SODIUM,PORCINE 30 UNITS INJ IV SCH (09:00)
[2016-12-20] MEDS ORDERED: MEROPENEM IV SCH (09:00)
[2016-12-21] MEDS ORDERED: 0.9 % SODIUM CHLORIDE 50 ML IV SCH (09:00)
[2016-12-21] MEDS ORDERED: SODIUM CHLORIDE 0.9% IV SCH (09:00)
[2016-12-21] MEDS ORDERED: MEROPENEM IV SCH (09:00)
[2016-12-21] MEDS ORDERED: SALINE FLUSH 10 ML DISP.SYRIN IVF SCH (09:00)
[2016-12-21] MEDS ORDERED: HEPARIN SODIUM,PORCINE 30 UNITS INJ IV SCH (09:00)
[2016-12-22] MEDS ORDERED: 0.9 % SODIUM CHLORIDE 50 ML IV SCH (09:00)
[2016-12-22] MEDS ORDERED: SODIUM CHLORIDE 0.9% IV SCH (09:00)
[2016-12-22] MEDS ORDERED: MEROPENEM IV SCH (09:00)
[2016-12-22] MEDS ORDERED: SALINE FLUSH 10 ML DISP.SYRIN IVF SCH (09:00)
[2016-12-22] MEDS ORDERED: HEPARIN SODIUM,PORCINE 30 UNITS INJ IV SCH (09:00)
== END 2016-12-19 11:05 ==
LOC: INF 11:04
PROVIDERS: ATTEND Internal Medicine
DX: T82.7XXA Infection and inflammatory reaction due to other cardiac and vascular devices, implants and grafts, initial encounter (principal); R53.81 Other malaise; R50.9 Fever, unspecified; Z79.01 Long term (current) use of anticoagulants
CPT/HCPCS: 94640; 94760; 96365; 96366; J2185

== ENCOUNTER 2016-12-20 11:08 | Outpatient (CLI) | payer MEDICARE, OTHER ==
[~2016-12-20 11:08] MED LIST changes: -0.9 % SODIUM CHLORIDE 50 ML IV SCH; -HEPARIN SODIUM,PORCINE 30 UNITS INJ IV SCH; -MEROPENEM IV SCH; -PENTAMIDINE ISETHIONATE 300 MG NEB SCH; -SALINE FLUSH 10 ML DISP.SYRIN IVF SCH; -SODIUM CHLORIDE 0.9% IV SCH
== END 2016-12-20 11:10 ==
LOC: INF 11:08
PROVIDERS: ATTEND Internal Medicine
DX: T82.7XXA Infection and inflammatory reaction due to other cardiac and vascular devices, implants and grafts, initial encounter (principal); R53.81 Other malaise; R50.9 Fever, unspecified; Y92.9 Unspecified place or not applicable; Y93.9 Activity, unspecified; Z79.01 Long term (current) use of anticoagulants
CPT/HCPCS: 96365; 96366; J2185

== ENCOUNTER 2016-12-21 11:24 | Outpatient (CLI) | payer MEDICARE, OTHER ==
[2016-12-21] MEDS ORDERED: MEROPENEM 1,000 MG IV.SOLN. IV ONE (22:27)
[2016-12-21] MEDS ORDERED: 0.9 % SODIUM CHLORIDE 100 ML IV ONE (22:28)
== END 2016-12-21 11:25 ==
LOC: INF 11:24
PROVIDERS: ATTEND Internal Medicine
DX: T82.7XXA Infection and inflammatory reaction due to other cardiac and vascular devices, implants and grafts, initial encounter (principal); R53.81 Other malaise; R50.9 Fever, unspecified; Y92.9 Unspecified place or not applicable; Y93.9 Activity, unspecified; Z79.01 Long term (current) use of anticoagulants
CPT/HCPCS: 96365; J2185

== ENCOUNTER 2016-12-22 12:06 | Outpatient (CLI) | payer MEDICARE, OTHER | END 2016-12-22 12:07 | LOC: INF 12:06 | PROVIDERS: ATTEND Internal Medicine | DX: T82.7XXA Infection and inflammatory reaction due to other cardiac and vascular devices, implants and grafts, initial encounter (principal); R53.81 Other malaise; R50.9 Fever, unspecified; Z79.01 Long term (current) use of anticoagulants; Y92.9 Unspecified place or not applicable; Y93.9 Activity, unspecified | CPT/HCPCS: 96365; 96366; J2185 ==

== ENCOUNTER 2016-12-23 13:39 | Outpatient (CLI) | payer MEDICARE, OTHER ==
[~2016-12-23 13:39] MED LIST changes: +0.9 % SODIUM CHLORIDE 50 ML IV SCH; +HEPARIN SODIUM,PORCINE 30 UNITS INJ IV SCH; +MEROPENEM IV SCH; +SODIUM CHLORIDE 0.9% IV SCH
[2016-12-23] MEDS: SALINE FLUSH 10 ML DISP.SYRIN IVF SCH (14:10)
[2016-12-23] MEDS: MEROPENEM IV SCH (14:34)
[2016-12-23] MEDS: SODIUM CHLORIDE 0.9% IV SCH (14:34)
[2016-12-23] MEDS: HEPARIN SODIUM,PORCINE 30 UNITS INJ IV SCH (14:43)
[2016-12-24] MEDS: SALINE FLUSH 10 ML DISP.SYRIN IVF SCH (05:15)
[2016-12-24] MEDS: MEROPENEM IV SCH (05:15)
[2016-12-24] MEDS: HEPARIN SODIUM,PORCINE 30 UNITS INJ IV SCH (05:15)
[2016-12-24] MEDS: SODIUM CHLORIDE 0.9% IV SCH (05:15)
[2016-12-24] MEDS ORDERED: SALINE FLUSH 10 ML DISP.SYRIN IVF SCH (09:00)
[2016-12-24] MEDS ORDERED: HEPARIN SODIUM,PORCINE 30 UNITS INJ IV SCH (09:00)
[2016-12-24] MEDS ORDERED: SODIUM CHLORIDE 0.9% IV SCH (09:00)
[2016-12-24] MEDS ORDERED: 0.9 % SODIUM CHLORIDE 50 ML IV SCH (09:00)
[2016-12-24] MEDS ORDERED: MEROPENEM IV SCH (09:00)
[2016-12-25] MEDS ORDERED: MEROPENEM IV SCH (09:00)
[2016-12-25] MEDS ORDERED: SODIUM CHLORIDE 0.9% IV SCH (09:00)
[2016-12-25] MEDS ORDERED: 0.9 % SODIUM CHLORIDE 50 ML IV SCH (09:00)
[2016-12-25] MEDS ORDERED: SALINE FLUSH 10 ML DISP.SYRIN IVF SCH (09:00)
[2016-12-25] MEDS ORDERED: HEPARIN SODIUM,PORCINE 30 UNITS INJ IV SCH (09:00)
== END 2016-12-23 13:40 ==
LOC: INF 13:39
PROVIDERS: ATTEND Internal Medicine
DX: T82.7XXA Infection and inflammatory reaction due to other cardiac and vascular devices, implants and grafts, initial encounter (principal); R53.81 Other malaise; R50.9 Fever, unspecified; Y92.9 Unspecified place or not applicable; Y93.9 Activity, unspecified; Z79.01 Long term (current) use of anticoagulants
CPT/HCPCS: 96365; 96366; J2185

== ENCOUNTER 2016-12-23 15:00 | Emergency (ER) | payer MEDICARE, OTHER ==
[2016-12-23 15:20] LABS: BASOPHILS % 0.2 (0.0-1.5); EOSINOPHILS % 1.8 % (0.0-6.8); LYMPHOCYTES # 1.1 # k/uL (0.6-4.0); MONOCYTES # 0.3 # k/uL (0.0-0.9); NEUTROPHILS # 6.7 # k/uL (1.4-7.7)
[2016-12-23 15:38] LABS: eGFR (African) > 60; eGFR (Non-African) 59
--- NOTE | 2016-12-23 16:01 | ED Physician Documentation ---
General Adult - HISTORIAN Historian: patient - HPI Stated Complaint: Pain All Over Chief Complaint: General Adult Further Comments: yes (66 year old male patient presents with complaints of pain all over and not feeling well. States he took 2 of his oxycodone before coming in for his IV infusion.) - ROS CONST: chills EYES/ENT: none CVS/RESP: other (chest wall pain and drive line discomfort. ) GI/: none MS/SKIN/LYMPH: none NEURO/PSYCH: headache - PAST HX Past History: CHF, other (LVAD placed 2012) Other History: other (chronic drive line infection, LVAD, COPD) Allergies/Adverse Reactions: Allergies Allergy/AdvReac Type Severity Reaction Status Date / Time Penicillins Allergy Verified 12/23/16 15:11 Sulfa (Sulfonamide Allergy Verified 12/23/16 15:11 Antibiotics) Home Medications: Ambulatory Orders Medication Instructions Recorded Metoprolol Tartrate [Lopressor] 12.5 mg PO DAILY 02/26/15 Aspirin [Oziel] 162 mg PO D 04/28/15 Esomeprazole Magnesium [Nexium] 40 mg PO DAILY 05/31/15 Phenylephrine HCl [Major-Prep 1 each RC BID PRN 05/31/15 Hemorrhoidal] Pramoxine HCl [Proctofoam] 15 gm TP BID PRN 05/31/15 Furosemide [Lasix] 40 mg PO DAILY PRN 07/08/15 Warfarin Sodium 4 mg PO DAILY 07/13/15 Losartan Potassium [Cozaar] 25 mg PO DAILY 08/05/15 - SOCIAL HX Smoking History: non-smoker - FAMILY HX Family History: No - VITAL SIGNS Vital Signs: Vital Signs Temp Pulse Resp BP Pulse Ox 97.6 F 79 18 101/84 98 12/23/16 15:00 12/23/16 15:39 12/23/16 15:00 12/23/16 15:00 12/23/16 15:39 - REVIEWED ASSESSMENTS Nursing Assessment Reviewed: Yes Vitals Reviewed: Yes Progress - Progress Progress: Discussed treatment options regarding pain medications. Patient states the oxycodone are not managing his pain any longer. Patient drove himself to the Er , does not have someone to pick him. States he has been out of his lyrica for 4 days. Offered to refill Lyrica, patient states he does not have money for the co-pay or an account at [facility]. States he has a refill ready at [facility] pharmacy which is free, but he cannot pick it up until Sunday. [address] Otoole for pain medication consult. [address] Haider. Discussed case, orders for fentanyl patch and have patient call her on Sunday. ED Results Lab/Radiology - Lab Results Lab Results: Lab Results 12/23/16 12/23/16 12/23/16 15:09 15:09 15:09 WBC 8.40 K/ul K/ul (4.00-12.00) RBC 4.01 M/ul M/ul (3.90-5.20) Hgb 9.6 g/dL L g/dL (12.0-18.0) Hct 29.3 % L % (37.0-53.0) MCV 73.1 fl L fl (80.0-100.0) MCH 24.0 pg L pg (28.0-34.0) MCHC 32.8 g/dL g/dL (30.0-36.0) RDW 20.6 % H % (11.3-14.3) Plt Count 109 K/mm3 L K/mm3 (130-400) Neut % (Auto) 80.4 % H % (39.0-79.0) Lymph % (Auto) 12.8 % L % (16.0-50.0) [place] % (Auto) 4.0 % % (0.0-11.0) Eos % (Auto) 1.8 % % (0.0-6.8) Baso % (Auto) 0.2 (0.0-1.5) Neut # 6.7 # k/uL # k/uL (1.4-7.7) Lymph # 1.1 # k/uL # k/uL (0.6-4.0) [place] # 0.3 # k/uL # k/uL (0.0-0.9) Eos # 0.2 # k/uL # k/uL (0.0-0.6) Baso # 0.0 # k/uL # k/uL (0.0-0.5) Reactive Lymphs % 0.8 % % (0.0-5.0) Reactive Lymphs # 0.1 # k/uL # k/uL (0.0-0.8) Sodium 137 mmol/L mmol/L (136-145) Potassium 4.1 mmol/L mmol/L (3.5-5.0) Chloride 97 mmol/L L mmol/L (98-110) Carbon Dioxide 31 mmol/L mmol/L (20-32) BUN 20 mg/dL mg/dL (10-26) Creatinine 1.3 mg/dL mg/dL (0.4-1.5) Estimated Creat Clear 65 Est GFR ( Amer) > 60 (60 - ) Est GFR (Non-Af Amer) 59 L (60 - ) Glucose 172 mg/dL H mg/dL (70-99) Calcium 9.6 mg/dL mg/dL (8.5-10.5) Total Bilirubin 1.2 mg/dL mg/dL (0.2-1.2) AST 39 U/L U/L (0-41) ALT 36 U/L U/L (0-45) Alkaline Phosphatase 74 U/L U/L (46-116) Creatine Kinase 20 U/L U/L (0-225) Troponin I < 0.03 ng/mL L ng/mL (0.03-0.06) NT-Pro-B Natriuret Pep 1164.3 pg/mL H pg/mL (15.0-125.0) Total Protein 6.9 g/dL g/dL (6.0-8.5) Albumin 4.2 g/dL g/dL (3.0-5.5) - Radiology Radiology Impressions: Chest AP portable Exam: December 23, 2016. Clinical history: Chest pain. Findings: Comparison with December 10, 2016 again demonstrates cardiomegaly and moderate pulmonary vascular congestion. Small bilateral pleural effusions are again evident. There is a right-sided central venous catheter with tip in the distal superior vena cava. A left-sided pacemaker is present with two leads in the right heart. Sternal surgical wires and mediastinal clips are manifestations of prior cardiac surgery. Aortic arch atherosclerotic calcifications are noted. No acute infiltrate is identified. Impression: Cardiomegaly and moderate pulmonary vascular congestion. Small bilateral pleural effusions. Electronically signed on Dec 23, 2016 3:47:42 PM RN SANE by: Robert Malin - Orders Orders: ED Orders Category Date Time Status Continuous EKG monitoring Q30M Care 12/23/16 15:09 Active Continuous Pulse Oximetry Q30M Care 12/23/16 15:[address] Saline Lock/IV NOW Care 12/23/16 15:09 Active CHEST 1 VIEW [RAD] Stat Exams 12/23/16 15:09 Taken BNP [NT-proBNP] Stat Lab 12/23/16 15:09 Completed CBC/PLATELET/DIFF Routine Lab 12/23/16 15:09 Completed CMP Routine Lab 12/23/16 15:09 Completed CREATINE KINASE Routine Lab 12/23/16 15:09 Completed PT-INR Routine Lab 12/23/16 15:11 Received TROPONIN I (cTnI) Stat Lab 12/23/16 15:09 Completed Oxygen Daily Oxygen 12/23/16 15:15 Ordered EKG WITH COMPARISON Stat Ther 12/23/16 15:09 Ordered General Adult Physical Exam - PHYSICAL EXAM GENERAL APPEARANCE: flat affect RESPIRATORY: no resp distress, chest non-tender, breath sounds normal CVS: other (LVAD, in place and auscultated;) ABDOMEN: soft, no organomegaly, normal bowel sounds, no abdominal bruit, no distension SKIN: normal color, warm/dry, NR, INT, PAL, DR EXTREMITIES: non-tender, normal range of motion, no evidence of injury, no edema , J, IT TRAINING SPECIALIST NEURO: oriented X3, CN's nml as tested, motor nml, sensation nml, mood/affect nml Discharge Clincal Impression: Pain, LVAD (left ventricular assist device) present Additional Instructions: Follow up with Dr Haider on Sunday regarding pain management. Home Medications: Ambulatory Orders Metoprolol Tartrate [Lopressor] 12.5 mg PO DAILY 02/26/15 Aspirin [Oziel] 162 mg PO D 04/28/15 Esomeprazole Magnesium [Nexium] 40 mg PO DAILY 05/31/15 Phenylephrine HCl [Major-Prep Hemorrhoidal] 1 each RC BID PRN 05/31/15 Pramoxine HCl [Proctofoam] 15 gm TP BID PRN 05/31/15 Furosemide [Lasix] 40 mg PO DAILY PRN 07/08/15 Warfarin Sodium 4 mg PO DAILY 07/13/15 Losartan Potassium [Cozaar] 25 mg PO DAILY 08/05/15 Condition: Stable Disposition: 01 HOME, SELF-CARE Decision to Admit: NO Decision Time: 16:51
[2016-12-23 17:06] VITALS: BP 110/68
--- NOTE | 2016-12-23 17:59 | Diagnostic Imaging Report ---
[facility] [address] [facility].[address] [address] Report Submission Date: Dec 23, 2016 3:47:42 PM HOSE HANDLER Patient Study Name: ERVIN ROJAS Date: Dec 23, 2016 3:27:46 PM HOSE HANDLER Modality Type: CR Gender: M Description: CHEST : 52 Institution: [facility] Physician: GONZALO MELENDEZ (ENTREPRENEUR) - ER Chest AP portable Exam: December 23, 2016. Clinical history: Chest pain. Findings: Comparison with December 10, 2016 again demonstrates cardiomegaly and moderate pulmonary vascular congestion. Small bilateral pleural effusions are again evident. There is a right-sided central venous catheter with tip in the distal superior vena cava. A left-sided pacemaker is present with two leads in the right heart. Sternal surgical wires and mediastinal clips are manifestations of prior cardiac surgery. Aortic arch atherosclerotic calcifications are noted. No acute infiltrate is identified. Impression: Cardiomegaly and moderate pulmonary vascular congestion. Small bilateral pleural effusions. Electronically signed on Dec 23, 2016 3:47:42 PM HOSE HANDLER by: Robert ANGELA
[2016-12-26] MEDS ORDERED: fentaNYL 12 MCG 1 EACH PATCH.TD72 TD ONE (16:47)
== END 2016-12-23 17:05 | disposition home or self-care (01) ==
LOC: ED 15:00
DX: R52 Pain, unspecified (principal); Z95.811 Presence of heart assist device
CPT/HCPCS: 71010; 80053; 82550; 83880; 84484; 85025; 85610; 99283

== ENCOUNTER 2016-12-24 12:13 | Outpatient (CLI) | payer MEDICARE, OTHER ==
[2016-12-23 17:06] VITALS: BP 110/68
[~2016-12-24 12:13] MED LIST changes: -0.9 % SODIUM CHLORIDE 50 ML IV SCH; -HEPARIN SODIUM,PORCINE 30 UNITS INJ IV SCH; -MEROPENEM IV SCH; -SODIUM CHLORIDE 0.9% IV SCH
== END 2016-12-24 12:14 ==
LOC: INF 12:13
PROVIDERS: ATTEND Internal Medicine
DX: T82.7XXA Infection and inflammatory reaction due to other cardiac and vascular devices, implants and grafts, initial encounter (principal); R53.81 Other malaise; R50.9 Fever, unspecified; Y92.9 Unspecified place or not applicable; Y93.9 Activity, unspecified; Z79.01 Long term (current) use of anticoagulants
CPT/HCPCS: 96365; 96366; J2185

== ENCOUNTER 2016-12-25 15:11 | Outpatient (CLI) | payer MEDICARE, OTHER ==
[~2016-12-25 15:11] MED LIST changes: +SALINE FLUSH 10 ML DISP.SYRIN IVF PRN; +fentaNYL 12 MCG 1 EACH PATCH.TD72 TD ONE
[2016-12-25] MEDS ORDERED: HEPARIN SODIUM,PORCINE 30 UNITS INJ IV SCH (21:00)
[2016-12-25] MEDS ORDERED: MEROPENEM IV SCH (21:00)
[2016-12-25] MEDS ORDERED: SODIUM CHLORIDE 0.9% IV SCH (21:00)
[2016-12-25] MEDS ORDERED: 0.9 % SODIUM CHLORIDE 50 ML IV SCH (21:00)
== END 2016-12-25 15:12 ==
LOC: INF 15:11
PROVIDERS: ATTEND Internal Medicine
DX: T82.7XXA Infection and inflammatory reaction due to other cardiac and vascular devices, implants and grafts, initial encounter (principal); R53.81 Other malaise; R50.9 Fever, unspecified; Z79.01 Long term (current) use of anticoagulants; Y92.9 Unspecified place or not applicable; Y93.9 Activity, unspecified
CPT/HCPCS: 96365; J2185

== ENCOUNTER 2016-12-26 14:43 | Outpatient (CLI) | payer MEDICARE, OTHER ==
[~2016-12-26 14:43] MED LIST changes: +0.9 % SODIUM CHLORIDE 50 ML IV SCH; +HEPARIN SODIUM,PORCINE 30 UNITS INJ IV SCH; +MEROPENEM IV SCH; -SALINE FLUSH 10 ML DISP.SYRIN IVF PRN; +SALINE FLUSH 10 ML DISP.SYRIN IVF SCH; +SODIUM CHLORIDE 0.9% IV SCH; -fentaNYL 12 MCG 1 EACH PATCH.TD72 TD ONE
[2016-12-26 15:09] LABS: BASOPHILS % 0.1 (0.0-1.5); EOSINOPHILS % 1.4 % (0.0-6.8); LYMPHOCYTES # 0.8 # k/uL (0.6-4.0); MEAN CORPUSCULAR HEMOGLOBIN 23.9 pg (28.0-34.0); MONOCYTES # 0.4 # k/uL (0.0-0.9); MONOCYTES % 3.7 % (0.0-11.0)
[2016-12-26 15:54] LABS: eGFR (African) 56; eGFR (Non-African) 46
== END 2016-12-26 14:44 ==
LOC: INF 14:43
PROVIDERS: ATTEND Internal Medicine
DX: T82.7XXA Infection and inflammatory reaction due to other cardiac and vascular devices, implants and grafts, initial encounter (principal); R53.81 Other malaise; R50.9 Fever, unspecified; Z79.01 Long term (current) use of anticoagulants; Y92.9 Unspecified place or not applicable; Y93.9 Activity, unspecified
CPT/HCPCS: 36415; 80053; 83615; 85025; 85610; J2185; 96365; 96366

== ENCOUNTER 2016-12-27 14:05 | Outpatient (CLI) | payer MEDICARE, OTHER | END 2016-12-27 14:06 | LOC: INF 14:05 | PROVIDERS: ATTEND Internal Medicine | DX: T82.7XXA Infection and inflammatory reaction due to other cardiac and vascular devices, implants and grafts, initial encounter (principal); R53.81 Other malaise; R50.9 Fever, unspecified; Z79.01 Long term (current) use of anticoagulants; Y92.9 Unspecified place or not applicable; Y93.9 Activity, unspecified | CPT/HCPCS: 96365; 96366; J2185 ==

== ENCOUNTER 2016-12-28 00:18 | Outpatient (CLI) | payer MEDICARE, OTHER ==
[2016-12-28] MEDS: SALINE FLUSH 10 ML DISP.SYRIN IVF SCH ×2 (00:30→14:23)
[2016-12-28] MEDS: SODIUM CHLORIDE 0.9% IV SCH ×2 (00:30→14:25)
[2016-12-28] MEDS: MEROPENEM IV SCH ×2 (00:30→14:25)
[2016-12-28] MEDS: 0.9 % SODIUM CHLORIDE 50 ML IV SCH ×2 (00:55→14:53)
[2016-12-28] MEDS: HEPARIN SODIUM,PORCINE 30 UNITS INJ IV SCH ×2 (01:20→15:00)
[2016-12-28] MEDS ORDERED: SALINE FLUSH 10 ML DISP.SYRIN IVF ONE (08:00)
[2016-12-28] MEDS ORDERED: 0.9 % SODIUM CHLORIDE 50 ML IV.SOLN IV ONE (08:00)
[2016-12-28] MEDS ORDERED: 0.9 % SODIUM CHLORIDE 100 ML IV.SOLN IV ONE (08:00)
[2016-12-28] MEDS ORDERED: HEPARIN SODIUM,PORCINE 30 UNITS INJ IV ONE (08:00)
[2016-12-28] MEDS ORDERED: MEROPENEM 1,000 MG IV.SOLN. IV ONE (08:00)
== END 2016-12-28 00:20 ==
LOC: INF 00:18
PROVIDERS: ATTEND Internal Medicine
DX: T82.7XXA Infection and inflammatory reaction due to other cardiac and vascular devices, implants and grafts, initial encounter (principal); R53.81 Other malaise; R50.9 Fever, unspecified; Z79.01 Long term (current) use of anticoagulants; Y92.9 Unspecified place or not applicable; Y93.9 Activity, unspecified
CPT/HCPCS: 96365; 96366; J2185

== ENCOUNTER 2016-12-29 07:17 | Outpatient (CLI) | payer MEDICARE, OTHER ==
[2016-12-29] MEDS ORDERED: 0.9 % SODIUM CHLORIDE 100 ML IV.SOLN IV ONE (08:00)
[2016-12-29] MEDS ORDERED: HEPARIN SODIUM,PORCINE 30 UNITS INJ IV ONE (08:00)
[2016-12-29] MEDS ORDERED: 0.9 % SODIUM CHLORIDE 50 ML IV.SOLN IV ONE (08:00)
[2016-12-29] MEDS ORDERED: SALINE FLUSH 10 ML DISP.SYRIN IVF ONE (08:00)
[2016-12-29] MEDS ORDERED: MEROPENEM 1,000 MG IV.SOLN. IV ONE (08:00)
[2016-12-29] MEDS: SALINE FLUSH 10 ML DISP.SYRIN IVF SCH (14:05)
[2016-12-29] MEDS: SODIUM CHLORIDE 0.9% IV SCH (14:20)
[2016-12-29] MEDS: MEROPENEM IV SCH (14:20)
[2016-12-29] MEDS: 0.9 % SODIUM CHLORIDE 50 ML IV SCH (15:05)
[2016-12-29] MEDS: HEPARIN SODIUM,PORCINE 30 UNITS INJ IV SCH (15:15)
[2016-12-30] MEDS: SALINE FLUSH 10 ML DISP.SYRIN IVF SCH ×2 (01:15→13:22)
[2016-12-30] MEDS: SODIUM CHLORIDE 0.9% IV SCH ×2 (01:15→13:30)
[2016-12-30] MEDS: MEROPENEM IV SCH ×2 (01:15→13:30)
[2016-12-30] MEDS: 0.9 % SODIUM CHLORIDE 50 ML IV SCH ×2 (01:40→14:00)
[2016-12-30] MEDS: HEPARIN SODIUM,PORCINE 30 UNITS INJ IV SCH ×2 (02:05→14:05)
== END 2016-12-29 07:18 ==
LOC: INF 07:17
PROVIDERS: ATTEND Internal Medicine
DX: T82.7XXA Infection and inflammatory reaction due to other cardiac and vascular devices, implants and grafts, initial encounter (principal); R53.81 Other malaise; R50.9 Fever, unspecified; Z79.01 Long term (current) use of anticoagulants; Y92.9 Unspecified place or not applicable; Y93.9 Activity, unspecified
CPT/HCPCS: 96365; 96366; J2185

== ENCOUNTER 2016-12-30 13:17 | Outpatient (CLI) | payer MEDICARE, OTHER ==
[2016-12-31] MEDS ORDERED: MEROPENEM IV SCH (09:00)
[2016-12-31] MEDS ORDERED: HEPARIN SODIUM,PORCINE 30 UNITS INJ IV SCH (09:00)
[2016-12-31] MEDS ORDERED: 0.9 % SODIUM CHLORIDE 50 ML IV SCH (09:00)
[2016-12-31] MEDS ORDERED: SALINE FLUSH 10 ML DISP.SYRIN IVF SCH (09:00)
[2016-12-31] MEDS ORDERED: SODIUM CHLORIDE 0.9% IV SCH (09:00)
[2017-01-01] MEDS ORDERED: MEROPENEM IV SCH (09:00)
[2017-01-01] MEDS ORDERED: SALINE FLUSH 10 ML DISP.SYRIN IVF SCH (09:00)
[2017-01-01] MEDS ORDERED: 0.9 % SODIUM CHLORIDE 50 ML IV SCH (09:00)
[2017-01-01] MEDS ORDERED: HEPARIN SODIUM,PORCINE 30 UNITS INJ IV SCH (09:00)
[2017-01-01] MEDS ORDERED: SODIUM CHLORIDE 0.9% IV SCH (09:00)
== END 2016-12-30 13:18 ==
LOC: INF 13:17
PROVIDERS: ATTEND Internal Medicine
DX: T82.7XXA Infection and inflammatory reaction due to other cardiac and vascular devices, implants and grafts, initial encounter (principal); R53.81 Other malaise; R50.9 Fever, unspecified; Z79.01 Long term (current) use of anticoagulants; Y92.9 Unspecified place or not applicable; Y93.9 Activity, unspecified
CPT/HCPCS: 96365; 96366; J2185

== ENCOUNTER 2016-12-31 16:22 | Outpatient (CLI) | payer MEDICARE, OTHER ==
[~2016-12-31 16:22] MED LIST changes: -0.9 % SODIUM CHLORIDE 50 ML IV SCH; -HEPARIN SODIUM,PORCINE 30 UNITS INJ IV SCH; -MEROPENEM IV SCH; -SALINE FLUSH 10 ML DISP.SYRIN IVF SCH; -SODIUM CHLORIDE 0.9% IV SCH
== END 2016-12-31 16:23 ==
LOC: INF 16:22
PROVIDERS: ATTEND Internal Medicine
DX: T82.7XXA Infection and inflammatory reaction due to other cardiac and vascular devices, implants and grafts, initial encounter (principal); R53.81 Other malaise; R50.9 Fever, unspecified; Z79.01 Long term (current) use of anticoagulants; Y92.9 Unspecified place or not applicable; Y93.9 Activity, unspecified
CPT/HCPCS: 96365; 96366; J2185

== ENCOUNTER 2017-01-01 14:34 | Outpatient (CLI) | payer MEDICARE, OTHER ==
[~2017-01-01 14:34] MED LIST changes: +0.9 % SODIUM CHLORIDE 100 ML IV ONE; +0.9 % SODIUM CHLORIDE 50 ML IV ONE
[2017-01-01 14:53] LABS: BASOPHILS % 0.1 (0.0-1.5); EOSINOPHILS % 1.6 % (0.0-6.8); LYMPHOCYTES # 1.2 # k/uL (0.6-4.0); MEAN CORPUSCULAR HEMOGLOBIN 23.4 pg (28.0-34.0); MONOCYTES # 0.3 # k/uL (0.0-0.9); MONOCYTES % 4.1 % (0.0-11.0); NEUTROPHILS # 6.3 # k/uL (1.4-7.7)
[2017-01-01 15:26] LABS: eGFR (African) > 60; eGFR (Non-African) 59
== END 2017-01-01 14:35 ==
LOC: INF 14:34
PROVIDERS: ATTEND Internal Medicine
DX: T82.7XXA Infection and inflammatory reaction due to other cardiac and vascular devices, implants and grafts, initial encounter (principal); R53.81 Other malaise; R50.9 Fever, unspecified; Z79.01 Long term (current) use of anticoagulants; Y92.9 Unspecified place or not applicable; Y93.9 Activity, unspecified
CPT/HCPCS: 36415; 80053; 83615; 85025; 85610; J2185; 96365; 96366

== ENCOUNTER 2017-01-02 12:33 | Outpatient (CLI) | payer MEDICARE, OTHER ==
[~2017-01-02 12:33] MED LIST changes: -0.9 % SODIUM CHLORIDE 100 ML IV ONE; -0.9 % SODIUM CHLORIDE 50 ML IV ONE
[2017-01-02] MEDS: HEPARIN SODIUM,PORCINE 30 UNITS INJ IV SCH (14:27)
[2017-01-02] MEDS: MEROPENEM IV SCH (14:29)
[2017-01-02] MEDS: SODIUM CHLORIDE 0.9% IV SCH (14:29)
[2017-01-02] MEDS: SALINE FLUSH 10 ML DISP.SYRIN IVF SCH (14:30)
[2017-01-02] MEDS: 0.9 % SODIUM CHLORIDE 50 ML IV SCH (14:30)
[2017-01-03] MEDS: SALINE FLUSH 10 ML DISP.SYRIN IVF SCH (00:30)
[2017-01-03] MEDS: SODIUM CHLORIDE 0.9% IV SCH (00:30)
[2017-01-03] MEDS: MEROPENEM IV SCH (00:30)
[2017-01-03] MEDS: 0.9 % SODIUM CHLORIDE 50 ML IV SCH (00:55)
[2017-01-03] MEDS: HEPARIN SODIUM,PORCINE 30 UNITS INJ IV SCH (01:20)
== END 2017-01-02 12:34 ==
LOC: INF 12:33
PROVIDERS: ATTEND Internal Medicine
DX: T82.7XXA Infection and inflammatory reaction due to other cardiac and vascular devices, implants and grafts, initial encounter (principal); R53.81 Other malaise; R50.9 Fever, unspecified; Z79.01 Long term (current) use of anticoagulants; Y92.9 Unspecified place or not applicable; Y93.9 Activity, unspecified
CPT/HCPCS: 96365; 96366; J2185

== ENCOUNTER 2017-01-03 14:34 | Outpatient (CLI) | payer MEDICARE, OTHER ==
[~2017-01-03 14:34] MED LIST changes: +0.9 % SODIUM CHLORIDE 50 ML IV SCH; +HEPARIN SODIUM,PORCINE 30 UNITS INJ IV SCH; +MEROPENEM IV SCH; +SALINE FLUSH 10 ML DISP.SYRIN IVF SCH; +SODIUM CHLORIDE 0.9% IV SCH
== END 2017-01-03 14:35 ==
LOC: INF 14:34
PROVIDERS: ATTEND Internal Medicine
DX: T82.7XXA Infection and inflammatory reaction due to other cardiac and vascular devices, implants and grafts, initial encounter (principal); R53.81 Other malaise; R50.9 Fever, unspecified; Z79.01 Long term (current) use of anticoagulants; Y92.9 Unspecified place or not applicable; Y93.9 Activity, unspecified
CPT/HCPCS: 96365; 96366; J2185

== ENCOUNTER 2017-01-04 11:26 | Outpatient (CLI) | payer MEDICARE, OTHER ==
[~2017-01-04 11:26] MED LIST changes: +0.9 % SODIUM CHLORIDE 100 ML IV ONE
== END 2017-01-04 11:27 ==
LOC: INF 11:26
PROVIDERS: ATTEND Internal Medicine
DX: T82.7XXA Infection and inflammatory reaction due to other cardiac and vascular devices, implants and grafts, initial encounter (principal); R53.81 Other malaise; R50.9 Fever, unspecified; Z79.01 Long term (current) use of anticoagulants; Y92.9 Unspecified place or not applicable; Y93.9 Activity, unspecified
CPT/HCPCS: 96365; 96366; J2185

== ENCOUNTER 2017-01-05 11:34 | Outpatient (CLI) | payer MEDICARE, OTHER ==
[~2017-01-05 11:34] MED LIST changes: -0.9 % SODIUM CHLORIDE 100 ML IV ONE; -0.9 % SODIUM CHLORIDE 50 ML IV SCH; -HEPARIN SODIUM,PORCINE 30 UNITS INJ IV SCH; -MEROPENEM IV SCH; -SALINE FLUSH 10 ML DISP.SYRIN IVF SCH; -SODIUM CHLORIDE 0.9% IV SCH
[2017-01-05] MEDS: MEROPENEM IV SCH (15:57)
[2017-01-05] MEDS: SODIUM CHLORIDE 0.9% IV SCH (15:57)
[2017-01-05] MEDS: SALINE FLUSH 10 ML DISP.SYRIN IVF SCH (15:58)
[2017-01-05] MEDS: HEPARIN SODIUM,PORCINE 30 UNITS INJ IV SCH (15:58)
[2017-01-05] MEDS: 0.9 % SODIUM CHLORIDE 50 ML IV SCH (15:58)
[2017-01-06] MEDS: HEPARIN SODIUM,PORCINE 30 UNITS INJ IV SCH (00:30)
[2017-01-06] MEDS: MEROPENEM IV SCH (00:30)
[2017-01-06] MEDS: 0.9 % SODIUM CHLORIDE 50 ML IV SCH (00:30)
[2017-01-06] MEDS: SODIUM CHLORIDE 0.9% IV SCH (00:30)
[2017-01-06] MEDS: SALINE FLUSH 10 ML DISP.SYRIN IVF SCH (00:30)
[2017-01-06] MEDS ORDERED: SALINE FLUSH 10 ML DISP.SYRIN IVF SCH (09:00)
[2017-01-06] MEDS ORDERED: HEPARIN SODIUM,PORCINE 30 UNITS INJ IV SCH (09:00)
[2017-01-06] MEDS ORDERED: SODIUM CHLORIDE 0.9% IV SCH (09:00)
[2017-01-06] MEDS ORDERED: 0.9 % SODIUM CHLORIDE 50 ML IV SCH (09:00)
[2017-01-06] MEDS ORDERED: MEROPENEM IV SCH (09:00)
[2017-01-07] MEDS ORDERED: 0.9 % SODIUM CHLORIDE 50 ML IV SCH (09:00)
[2017-01-07] MEDS ORDERED: SODIUM CHLORIDE 0.9% IV SCH (09:00)
[2017-01-07] MEDS ORDERED: HEPARIN SODIUM,PORCINE 30 UNITS INJ IV SCH (09:00)
[2017-01-07] MEDS ORDERED: MEROPENEM IV SCH (09:00)
[2017-01-07] MEDS ORDERED: SALINE FLUSH 10 ML DISP.SYRIN IVF SCH (09:00)
[2017-01-08] MEDS ORDERED: SODIUM CHLORIDE 0.9% IV SCH (09:00)
[2017-01-08] MEDS ORDERED: HEPARIN SODIUM,PORCINE 30 UNITS INJ IV SCH (09:00)
[2017-01-08] MEDS ORDERED: MEROPENEM IV SCH (09:00)
[2017-01-08] MEDS ORDERED: SALINE FLUSH 10 ML DISP.SYRIN IVF SCH (09:00)
[2017-01-08] MEDS ORDERED: 0.9 % SODIUM CHLORIDE 50 ML IV SCH (09:00)
== END 2017-01-05 11:35 ==
LOC: INF 11:34
PROVIDERS: ATTEND Internal Medicine
DX: T82.7XXA Infection and inflammatory reaction due to other cardiac and vascular devices, implants and grafts, initial encounter (principal); R53.81 Other malaise; R50.9 Fever, unspecified; Z79.01 Long term (current) use of anticoagulants; Y92.9 Unspecified place or not applicable; Y93.9 Activity, unspecified
CPT/HCPCS: 96365; 96366; J2185

== ENCOUNTER 2017-01-06 13:41 | Outpatient (CLI) | payer MEDICARE, OTHER ==
[2017-01-06] MEDS ORDERED: SODIUM CHLORIDE 0.9% IV SCH (21:00)
[2017-01-06] MEDS ORDERED: 0.9 % SODIUM CHLORIDE PF 10 ML VIAL IJ SCH (21:00)
[2017-01-06] MEDS ORDERED: SALINE FLUSH 10 ML DISP.SYRIN IV SCH (21:00)
[2017-01-06] MEDS ORDERED: MEROPENEM IV SCH (21:00)
[2017-01-06] MEDS ORDERED: HEPARIN SODIUM,PORCINE 30 UNITS INJ IV SCH (21:00)
[2017-01-08] MEDS ORDERED: SALINE FLUSH 10 ML DISP.SYRIN IVF ONE (01:32)
== END 2017-01-06 13:42 ==
LOC: INF 13:41
PROVIDERS: ATTEND Internal Medicine
DX: T82.7XXA Infection and inflammatory reaction due to other cardiac and vascular devices, implants and grafts, initial encounter (principal); R53.81 Other malaise; R50.9 Fever, unspecified; Z79.01 Long term (current) use of anticoagulants; Y92.9 Unspecified place or not applicable; Y93.9 Activity, unspecified
CPT/HCPCS: 96365; 96366; J2185

== ENCOUNTER 2017-01-07 16:36 | Outpatient (CLI) | payer MEDICARE, OTHER | END 2017-01-07 16:37 | LOC: INF 16:36 | PROVIDERS: ATTEND Internal Medicine | DX: T82.7XXA Infection and inflammatory reaction due to other cardiac and vascular devices, implants and grafts, initial encounter (principal); R53.81 Other malaise; R50.9 Fever, unspecified; Z79.01 Long term (current) use of anticoagulants; Y92.9 Unspecified place or not applicable; Y93.9 Activity, unspecified | CPT/HCPCS: 96365; 96366; J2185 ==

== ENCOUNTER 2017-01-08 15:31 | Outpatient (CLI) | payer MEDICARE, OTHER ==
[2017-01-08 15:56] LABS: BASOPHILS % 0.2 (0.0-1.5); EOSINOPHILS % 0.9 % (0.0-6.8); LYMPHOCYTES # 1.5 # k/uL (0.6-4.0); MEAN CORPUSCULAR HEMOGLOBIN 23.3 pg (28.0-34.0); MONOCYTES # 0.4 # k/uL (0.0-0.9); MONOCYTES % 3.9 % (0.0-11.0); NEUTROPHILS # 7.5 # k/uL (1.4-7.7)
[2017-01-08 16:12] LABS: eGFR (African) > 60; eGFR (Non-African) > 60
== END 2017-01-08 15:32 ==
LOC: INF 15:31
PROVIDERS: ATTEND Internal Medicine
DX: T82.7XXA Infection and inflammatory reaction due to other cardiac and vascular devices, implants and grafts, initial encounter (principal); R53.81 Other malaise; R50.9 Fever, unspecified; Z79.01 Long term (current) use of anticoagulants
CPT/HCPCS: 36415; 80053; 83615; 85025; 85610; 96365; 96366; J2185

== ENCOUNTER 2017-01-09 11:47 | Outpatient (CLI) | payer MEDICARE, OTHER ==
[~2017-01-09 11:47] MED LIST changes: +0.9 % SODIUM CHLORIDE 50 ML IV SCH; +HEPARIN SODIUM,PORCINE 30 UNITS INJ IV SCH; +MEROPENEM IV SCH; +SALINE FLUSH 10 ML DISP.SYRIN IVF SCH; +SODIUM CHLORIDE 0.9% IV SCH
== END 2017-01-09 11:50 ==
LOC: INF 11:47
PROVIDERS: ATTEND Internal Medicine
DX: T82.7XXA Infection and inflammatory reaction due to other cardiac and vascular devices, implants and grafts, initial encounter (principal); R53.81 Other malaise; R50.9 Fever, unspecified; Z79.01 Long term (current) use of anticoagulants
CPT/HCPCS: 96365; 96366; J2185

== ENCOUNTER 2017-01-10 12:16 | Outpatient (CLI) | payer MEDICARE, OTHER | END 2017-01-10 12:17 | LOC: INF 12:16 | PROVIDERS: ATTEND Internal Medicine | DX: T82.7XXA Infection and inflammatory reaction due to other cardiac and vascular devices, implants and grafts, initial encounter (principal); R53.81 Other malaise; R50.9 Fever, unspecified; Z79.01 Long term (current) use of anticoagulants | CPT/HCPCS: 96365; 96366; J2185 ==

== ENCOUNTER 2017-01-11 13:24 | Outpatient (CLI) | payer MEDICARE, OTHER | END 2017-01-11 13:25 | LOC: INF 13:24 | PROVIDERS: ATTEND Internal Medicine | DX: T82.7XXA Infection and inflammatory reaction due to other cardiac and vascular devices, implants and grafts, initial encounter (principal); R53.81 Other malaise; R50.9 Fever, unspecified; Z79.01 Long term (current) use of anticoagulants | CPT/HCPCS: 96365; 96366; J2185 ==

== ENCOUNTER 2017-01-12 15:45 | Outpatient (CLI) | payer MEDICARE, OTHER ==
[~2017-01-12 15:45] MED LIST changes: -0.9 % SODIUM CHLORIDE 50 ML IV SCH; -HEPARIN SODIUM,PORCINE 30 UNITS INJ IV SCH; -MEROPENEM IV SCH; -SALINE FLUSH 10 ML DISP.SYRIN IVF SCH; -SODIUM CHLORIDE 0.9% IV SCH
[2017-01-12] MEDS: SALINE FLUSH 10 ML DISP.SYRIN IVF SCH (16:15)
[2017-01-12] MEDS: MEROPENEM IV SCH (16:18)
[2017-01-12] MEDS: SODIUM CHLORIDE 0.9% IV SCH (16:18)
[2017-01-12] MEDS: 0.9 % SODIUM CHLORIDE 50 ML IV SCH (16:50)
[2017-01-12] MEDS: HEPARIN SODIUM,PORCINE 30 UNITS INJ IV SCH (17:00)
[2017-01-13] MEDS: MEROPENEM IV SCH (00:40)
[2017-01-13] MEDS: SALINE FLUSH 10 ML DISP.SYRIN IVF SCH (00:40)
[2017-01-13] MEDS: SODIUM CHLORIDE 0.9% IV SCH (00:40)
[2017-01-13] MEDS: 0.9 % SODIUM CHLORIDE 50 ML IV SCH (01:05)
[2017-01-13] MEDS: HEPARIN SODIUM,PORCINE 30 UNITS INJ IV SCH (01:30)
== END 2017-01-12 15:46 ==
LOC: INF 15:45
PROVIDERS: ATTEND Internal Medicine
DX: T82.7XXA Infection and inflammatory reaction due to other cardiac and vascular devices, implants and grafts, initial encounter (principal); R53.81 Other malaise; R50.9 Fever, unspecified; Z79.01 Long term (current) use of anticoagulants
CPT/HCPCS: 96365; 96366; J2185

== ENCOUNTER 2017-01-13 11:07 | Outpatient (CLI) | payer MEDICARE, OTHER ==
[2017-01-13] MEDS: SALINE FLUSH 10 ML DISP.SYRIN IVF SCH ×2 (11:33→22:20)
[2017-01-13] MEDS: SODIUM CHLORIDE 0.9% IV SCH ×2 (11:35→22:20)
[2017-01-13] MEDS: MEROPENEM IV SCH ×2 (11:35→22:20)
[2017-01-13] MEDS: HEPARIN SODIUM,PORCINE 30 UNITS INJ IV SCH ×2 (12:13→23:10)
[2017-01-13] MEDS: 0.9 % SODIUM CHLORIDE 50 ML IV SCH ×2 (12:13→22:45)
[2017-01-14] MEDS ORDERED: SODIUM CHLORIDE 0.9% IV SCH (09:00)
[2017-01-14] MEDS ORDERED: 0.9 % SODIUM CHLORIDE 50 ML IV SCH (09:00)
[2017-01-14] MEDS ORDERED: MEROPENEM IV SCH (09:00)
[2017-01-14] MEDS ORDERED: SALINE FLUSH 10 ML DISP.SYRIN IVF SCH (09:00)
[2017-01-14] MEDS ORDERED: HEPARIN SODIUM,PORCINE 30 UNITS INJ IV SCH (09:00)
== END 2017-01-13 12:10 ==
LOC: INF 11:07
PROVIDERS: ATTEND Internal Medicine
DX: T82.7XXA Infection and inflammatory reaction due to other cardiac and vascular devices, implants and grafts, initial encounter (principal); R53.81 Other malaise; R50.9 Fever, unspecified; Z79.01 Long term (current) use of anticoagulants
CPT/HCPCS: 96365; 96366; J2185

== ENCOUNTER 2017-01-14 15:36 | Outpatient (CLI) | payer MEDICARE, OTHER | END 2017-01-14 16:00 | LOC: INF 15:36 | PROVIDERS: ATTEND Internal Medicine | DX: T82.7XXA Infection and inflammatory reaction due to other cardiac and vascular devices, implants and grafts, initial encounter (principal); R53.81 Other malaise; R50.9 Fever, unspecified; Z79.01 Long term (current) use of anticoagulants | CPT/HCPCS: 96365; 96366; J2185 ==

== ENCOUNTER 2017-01-15 12:52 | Outpatient (CLI) | payer MEDICARE, OTHER ==
[2017-01-15 13:12] LABS: BASOPHILS % 0.1 (0.0-1.5); EOSINOPHILS % 0.8 % (0.0-6.8); LYMPHOCYTES # 0.9 # k/uL (0.6-4.0); MEAN CORPUSCULAR HEMOGLOBIN 23.5 pg (28.0-34.0); MONOCYTES # 0.4 # k/uL (0.0-0.9); MONOCYTES % 3.5 % (0.0-11.0)
[2017-01-15] MEDS: SALINE FLUSH 10 ML DISP.SYRIN IVF SCH (13:20)
[2017-01-15] MEDS: MEROPENEM IV SCH (13:24)
[2017-01-15] MEDS: SODIUM CHLORIDE 0.9% IV SCH (13:24)
[2017-01-15 13:56] LABS: eGFR (African) > 60; eGFR (Non-African) 59
[2017-01-15] MEDS: 0.9 % SODIUM CHLORIDE 50 ML IV SCH (17:21)
[2017-01-15] MEDS: HEPARIN SODIUM,PORCINE 30 UNITS INJ IV SCH (17:22)
[2017-01-16] MEDS: SALINE FLUSH 10 ML DISP.SYRIN IVF SCH (06:16)
[2017-01-16] MEDS: MEROPENEM IV SCH (06:16)
[2017-01-16] MEDS: HEPARIN SODIUM,PORCINE 30 UNITS INJ IV SCH (06:16)
[2017-01-16] MEDS: SODIUM CHLORIDE 0.9% IV SCH (06:16)
[2017-01-16] MEDS: 0.9 % SODIUM CHLORIDE 50 ML IV SCH (06:16)
== END 2017-01-15 14:00 ==
LOC: INF 12:52
PROVIDERS: ATTEND Internal Medicine
DX: T82.7XXA Infection and inflammatory reaction due to other cardiac and vascular devices, implants and grafts, initial encounter (principal); R53.81 Other malaise; R50.9 Fever, unspecified; Z79.01 Long term (current) use of anticoagulants
CPT/HCPCS: 36415; 80053; 83615; 85025; 85610; 96365; 96366; J2185

== ENCOUNTER 2017-01-16 12:22 | Outpatient (CLI) | payer MEDICARE, OTHER ==
[~2017-01-16 12:22] MED LIST changes: +0.9 % SODIUM CHLORIDE 50 ML IV SCH; +HEPARIN SODIUM,PORCINE 30 UNITS INJ IV SCH; +MEROPENEM IV SCH; +PENTAMIDINE ISETHIONATE 300 MG NEB SCH; +SALINE FLUSH 10 ML DISP.SYRIN IVF SCH; +SODIUM CHLORIDE 0.9% IV SCH
[2017-01-16] MEDS ORDERED: PENTAMIDINE ISETHIONATE 300 MG NEB SCH (14:00)
== END 2017-01-16 12:30 ==
LOC: INF 12:22
PROVIDERS: ATTEND Internal Medicine
DX: T82.7XXA Infection and inflammatory reaction due to other cardiac and vascular devices, implants and grafts, initial encounter (principal); R53.81 Other malaise; R50.9 Fever, unspecified; Z79.01 Long term (current) use of anticoagulants
CPT/HCPCS: 94640; 94760; 96365; 96366; J2185

== ENCOUNTER 2017-01-17 11:59 | Outpatient (CLI) | payer MEDICARE, OTHER ==
[~2017-01-17 11:59] MED LIST changes: -0.9 % SODIUM CHLORIDE 50 ML IV SCH; -HEPARIN SODIUM,PORCINE 30 UNITS INJ IV SCH; -MEROPENEM IV SCH; -PENTAMIDINE ISETHIONATE 300 MG NEB SCH; -SALINE FLUSH 10 ML DISP.SYRIN IVF SCH; -SODIUM CHLORIDE 0.9% IV SCH
[2017-01-17] MEDS ORDERED: SODIUM CHLORIDE 0.9% IV SCH (13:00)
[2017-01-17] MEDS ORDERED: 0.9 % SODIUM CHLORIDE 50 ML IV SCH (13:00)
[2017-01-17] MEDS ORDERED: MEROPENEM IV SCH (13:00)
[2017-01-17] MEDS ORDERED: HEPARIN SODIUM,PORCINE 30 UNITS INJ IV SCH (13:00)
[2017-01-17] MEDS ORDERED: SALINE FLUSH 10 ML DISP.SYRIN IVF SCH (21:00)
== END 2017-01-17 13:00 ==
LOC: INF 11:59
PROVIDERS: ATTEND Internal Medicine
DX: T82.7XXA Infection and inflammatory reaction due to other cardiac and vascular devices, implants and grafts, initial encounter (principal); R53.81 Other malaise; R50.9 Fever, unspecified; Z79.01 Long term (current) use of anticoagulants
CPT/HCPCS: 96365; 96366; J2185

== ENCOUNTER 2017-01-18 12:37 | Outpatient (CLI) | payer MEDICARE, OTHER ==
[~2017-01-18 12:37] MED LIST changes: +0.9 % SODIUM CHLORIDE 50 ML IV SCH; +0.9 % SODIUM CHLORIDE PF 10 ML VIAL IJ ONE; +HEPARIN SODIUM,PORCINE 30 UNITS INJ IV SCH
[2017-01-18] MEDS ORDERED: SODIUM CHLORIDE 0.9% IV SCH (21:00)
[2017-01-18] MEDS ORDERED: MEROPENEM IV SCH (21:00)
== END 2017-01-18 12:47 ==
LOC: INF 12:37
PROVIDERS: ATTEND Internal Medicine
DX: T82.7XXA Infection and inflammatory reaction due to other cardiac and vascular devices, implants and grafts, initial encounter (principal); R53.81 Other malaise; R50.9 Fever, unspecified; Z79.01 Long term (current) use of anticoagulants
CPT/HCPCS: J2185

== ENCOUNTER 2017-01-19 12:08 | Outpatient (CLI) | payer MEDICARE, OTHER ==
[~2017-01-19 12:08] MED LIST changes: -0.9 % SODIUM CHLORIDE PF 10 ML VIAL IJ ONE
[2017-01-19] MEDS ORDERED: SODIUM CHLORIDE 0.9% IV SCH (21:00)
[2017-01-19] MEDS ORDERED: MEROPENEM IV SCH (21:00)
== END 2017-01-19 12:09 ==
LOC: INF 12:08
PROVIDERS: ATTEND Internal Medicine
DX: T82.7XXA Infection and inflammatory reaction due to other cardiac and vascular devices, implants and grafts, initial encounter (principal); R53.81 Other malaise; R50.9 Fever, unspecified; Z79.01 Long term (current) use of anticoagulants
CPT/HCPCS: 96365; 96366; J2185

== ENCOUNTER 2017-01-20 12:34 | Outpatient (CLI) | payer MEDICARE, OTHER ==
[~2017-01-20 12:34] MED LIST changes: +MEROPENEM IV SCH; +SALINE FLUSH 10 ML DISP.SYRIN IVF SCH; +SODIUM CHLORIDE 0.9% IV SCH
== END 2017-01-20 12:35 ==
LOC: INF 12:34
PROVIDERS: ATTEND Internal Medicine
DX: T82.7XXA Infection and inflammatory reaction due to other cardiac and vascular devices, implants and grafts, initial encounter (principal); R53.81 Other malaise; R50.9 Fever, unspecified; Z79.01 Long term (current) use of anticoagulants
CPT/HCPCS: 96365; 96366; J2185

== ENCOUNTER 2017-01-21 12:38 | Outpatient (CLI) | payer MEDICARE, OTHER ==
[~2017-01-21 12:38] MED LIST changes: +SALINE FLUSH 10 ML DISP.SYRIN IVF PRN; -SALINE FLUSH 10 ML DISP.SYRIN IVF SCH
== END 2017-01-21 12:40 ==
LOC: INF 12:38
PROVIDERS: ATTEND Internal Medicine
DX: T82.7XXA Infection and inflammatory reaction due to other cardiac and vascular devices, implants and grafts, initial encounter (principal); R53.81 Other malaise; R50.9 Fever, unspecified; Z79.01 Long term (current) use of anticoagulants
CPT/HCPCS: 96365; 96366; J2185

== ENCOUNTER 2017-01-22 15:21 | Outpatient (CLI) | payer MEDICARE, OTHER ==
[~2017-01-22 15:21] MED LIST changes: -0.9 % SODIUM CHLORIDE 50 ML IV SCH; -MEROPENEM IV SCH; -SALINE FLUSH 10 ML DISP.SYRIN IVF PRN; -SODIUM CHLORIDE 0.9% IV SCH
[2017-01-22 15:51] LABS: BASOPHILS % 0.2 (0.0-1.5); EOSINOPHILS % 1.9 % (0.0-6.8); LYMPHOCYTES # 1.5 # k/uL (0.6-4.0); MEAN CORPUSCULAR HEMOGLOBIN 24.1 pg (28.0-34.0); MONOCYTES # 0.3 # k/uL (0.0-0.9); NEUTROPHILS # 7.4 # k/uL (1.4-7.7)
[2017-01-22 16:07] LABS: eGFR (African) > 60; eGFR (Non-African) 50
[2017-01-22] MEDS: SALINE FLUSH 10 ML DISP.SYRIN IVF PRN ×2 (16:28→23:30)
[2017-01-22] MEDS: MEROPENEM IV SCH ×2 (16:29→23:30)
[2017-01-22] MEDS: SODIUM CHLORIDE 0.9% IV SCH ×2 (16:29→23:30)
[2017-01-22] MEDS: 0.9 % SODIUM CHLORIDE 50 ML IV SCH ×2 (16:30→23:55)
== END 2017-01-22 15:22 ==
LOC: INF 15:21
PROVIDERS: ATTEND Internal Medicine
DX: T82.7XXA Infection and inflammatory reaction due to other cardiac and vascular devices, implants and grafts, initial encounter (principal); R53.81 Other malaise; R50.9 Fever, unspecified; Z79.01 Long term (current) use of anticoagulants; Y92.9 Unspecified place or not applicable; Y93.9 Activity, unspecified
CPT/HCPCS: 36415; 80053; 83615; 85025; 85610; J2185; 96365; 96366

== ENCOUNTER 2017-01-23 12:37 | Outpatient (CLI) | payer MEDICARE, OTHER ==
[~2017-01-23 12:37] MED LIST changes: +0.9 % SODIUM CHLORIDE 100 ML IV ONE; +0.9 % SODIUM CHLORIDE 50 ML IV ONE; +0.9 % SODIUM CHLORIDE 50 ML IV SCH
[2017-01-23] MEDS ORDERED: MEROPENEM IV SCH (21:00)
[2017-01-23] MEDS ORDERED: SODIUM CHLORIDE 0.9% IV SCH (21:00)
== END 2017-01-23 12:40 ==
LOC: INF 12:37
PROVIDERS: ATTEND Internal Medicine
DX: T82.7XXA Infection and inflammatory reaction due to other cardiac and vascular devices, implants and grafts, initial encounter (principal); R53.81 Other malaise; R50.9 Fever, unspecified; Z79.01 Long term (current) use of anticoagulants; Y92.9 Unspecified place or not applicable; Y93.9 Activity, unspecified
CPT/HCPCS: J2185 ×2; 96365; 96366

== ENCOUNTER 2017-01-24 14:02 | Outpatient (CLI) | payer MEDICARE, OTHER ==
[~2017-01-24 14:02] MED LIST changes: -0.9 % SODIUM CHLORIDE 100 ML IV ONE; -0.9 % SODIUM CHLORIDE 50 ML IV ONE; +MEROPENEM IV SCH; +SALINE FLUSH 10 ML DISP.SYRIN IVF SCH; +SODIUM CHLORIDE 0.9% IV SCH
== END 2017-01-24 14:03 ==
LOC: INF 14:02
PROVIDERS: ATTEND Internal Medicine
DX: T82.7XXA Infection and inflammatory reaction due to other cardiac and vascular devices, implants and grafts, initial encounter (principal); R53.81 Other malaise; R50.9 Fever, unspecified; Z79.01 Long term (current) use of anticoagulants; Y92.9 Unspecified place or not applicable; Y93.9 Activity, unspecified
CPT/HCPCS: 96365; 96366; J2185

== ENCOUNTER 2017-01-25 12:40 | Outpatient (CLI) | payer MEDICARE, OTHER | END 2017-01-25 12:42 | LOC: INF 12:40 | PROVIDERS: ATTEND Internal Medicine | DX: T82.7XXA Infection and inflammatory reaction due to other cardiac and vascular devices, implants and grafts, initial encounter (principal); R53.81 Other malaise; R50.9 Fever, unspecified; Z79.01 Long term (current) use of anticoagulants; Y92.9 Unspecified place or not applicable; Y93.9 Activity, unspecified | CPT/HCPCS: 96365; 96366; J2185 ==

== ENCOUNTER 2017-01-26 12:31 | Outpatient (CLI) | payer MEDICARE, OTHER | END 2017-01-26 12:32 | LOC: INF 12:31 | PROVIDERS: ATTEND Internal Medicine | DX: T82.7XXA Infection and inflammatory reaction due to other cardiac and vascular devices, implants and grafts, initial encounter (principal); R53.81 Other malaise; R50.9 Fever, unspecified; Z79.01 Long term (current) use of anticoagulants; Y92.9 Unspecified place or not applicable; Y93.9 Activity, unspecified | CPT/HCPCS: 96365; 96366; J2185 ==

== ENCOUNTER 2017-01-27 15:20 | Outpatient (CLI) | payer MEDICARE, OTHER | END 2017-01-27 15:22 | LOC: INF 15:20 | PROVIDERS: ATTEND Internal Medicine | DX: T82.7XXA Infection and inflammatory reaction due to other cardiac and vascular devices, implants and grafts, initial encounter (principal); R53.81 Other malaise; R50.9 Fever, unspecified; Z79.01 Long term (current) use of anticoagulants; Y92.9 Unspecified place or not applicable; Y93.9 Activity, unspecified | CPT/HCPCS: 96365; 96366; J2185 ==

== ENCOUNTER 2017-01-28 15:40 | Outpatient (CLI) | payer MEDICARE, OTHER ==
[2017-01-28 16:27] VITALS: BP 104/73
== END 2017-01-28 15:42 ==
LOC: INF 15:40
PROVIDERS: ATTEND Internal Medicine
DX: T82.7XXA Infection and inflammatory reaction due to other cardiac and vascular devices, implants and grafts, initial encounter (principal); R53.81 Other malaise; R50.9 Fever, unspecified; Z79.01 Long term (current) use of anticoagulants; Y92.9 Unspecified place or not applicable; Y93.9 Activity, unspecified
CPT/HCPCS: 96365; 96366; J2185

== ENCOUNTER 2017-01-29 13:44 | Outpatient (CLI) | payer MEDICARE, OTHER ==
[2017-01-28 16:27] VITALS: BP 104/73
[2017-01-29 14:08] LABS: BASOPHILS % 0.2 (0.0-1.5); LYMPHOCYTES # 1.2 # k/uL (0.6-4.0); MEAN CORPUSCULAR HEMOGLOBIN 24.2 pg (28.0-34.0); MONOCYTES # 0.2 # k/uL (0.0-0.9); MONOCYTES % 3.3 % (0.0-11.0)
[2017-01-29 15:03] LABS: eGFR (African) > 60; eGFR (Non-African) > 60
== END 2017-01-29 13:45 ==
LOC: INF 13:44
PROVIDERS: ATTEND Internal Medicine
DX: T82.7XXA Infection and inflammatory reaction due to other cardiac and vascular devices, implants and grafts, initial encounter (principal); R53.81 Other malaise; R50.9 Fever, unspecified; Z79.01 Long term (current) use of anticoagulants; Y92.9 Unspecified place or not applicable; Y93.9 Activity, unspecified
CPT/HCPCS: 36415; 80053; 83615; 85025; 85610; J2185; 96365; 96366

== ENCOUNTER 2017-01-30 13:38 | Outpatient (CLI) | payer MEDICARE, OTHER | END 2017-01-30 13:40 | LOC: INF 13:38 | PROVIDERS: ATTEND Internal Medicine | DX: T82.7XXA Infection and inflammatory reaction due to other cardiac and vascular devices, implants and grafts, initial encounter (principal); R53.81 Other malaise; R50.9 Fever, unspecified; Z79.01 Long term (current) use of anticoagulants; Y92.9 Unspecified place or not applicable; Y93.9 Activity, unspecified | CPT/HCPCS: 96365; 96366; J2185 ==

== ENCOUNTER 2017-01-31 14:37 | Outpatient (CLI) | payer MEDICARE, OTHER ==
[~2017-01-31 14:37] MED LIST changes: -SALINE FLUSH 10 ML DISP.SYRIN IVF SCH
== END 2017-01-31 14:40 ==
LOC: INF 14:37
PROVIDERS: ATTEND Internal Medicine
DX: T82.7XXA Infection and inflammatory reaction due to other cardiac and vascular devices, implants and grafts, initial encounter (principal); R53.81 Other malaise; R50.9 Fever, unspecified; Z79.01 Long term (current) use of anticoagulants; Y92.9 Unspecified place or not applicable; Y93.9 Activity, unspecified
CPT/HCPCS: 96365; 96366; J2185

== ENCOUNTER 2017-02-01 14:47 | Outpatient (CLI) | payer MEDICARE, OTHER ==
[~2017-02-01 14:47] MED LIST changes: -MEROPENEM IV SCH; -SODIUM CHLORIDE 0.9% IV SCH
[2017-02-01 15:50] VITALS: BP 106/83
[2017-02-01] MEDS ORDERED: SODIUM CHLORIDE 0.9% IV SCH (21:00)
[2017-02-01] MEDS ORDERED: MEROPENEM IV SCH (21:00)
== END 2017-02-01 14:50 ==
LOC: INF 14:47
PROVIDERS: ATTEND Internal Medicine
DX: T82.7XXA Infection and inflammatory reaction due to other cardiac and vascular devices, implants and grafts, initial encounter (principal); R53.81 Other malaise; R50.9 Fever, unspecified; Z79.01 Long term (current) use of anticoagulants; Y92.9 Unspecified place or not applicable; Y93.9 Activity, unspecified
CPT/HCPCS: 96365; 96366; J2185

== ENCOUNTER 2017-02-02 12:43 | Outpatient (CLI) | payer MEDICARE, OTHER ==
[~2017-02-02 12:43] MED LIST changes: -0.9 % SODIUM CHLORIDE 50 ML IV SCH; -HEPARIN SODIUM,PORCINE 30 UNITS INJ IV SCH
[2017-02-02] MEDS ORDERED: 0.9 % SODIUM CHLORIDE 50 ML IV SCH (13:00)
[2017-02-02] MEDS ORDERED: SALINE FLUSH 10 ML DISP.SYRIN IVF ONE (13:00)
[2017-02-02] MEDS ORDERED: HEPARIN SODIUM,PORCINE 30 UNITS INJ IV SCH (13:00)
[2017-02-02] MEDS ORDERED: MEROPENEM IV SCH (21:00)
[2017-02-02] MEDS ORDERED: SODIUM CHLORIDE 0.9% IV SCH (21:00)
== END 2017-02-02 12:44 ==
LOC: INF 12:43
PROVIDERS: ATTEND Internal Medicine
DX: T82.7XXA Infection and inflammatory reaction due to other cardiac and vascular devices, implants and grafts, initial encounter (principal); R53.81 Other malaise; R50.9 Fever, unspecified; Z79.01 Long term (current) use of anticoagulants
CPT/HCPCS: J2185 ×2; 96365; 96366

== ENCOUNTER 2017-02-03 14:36 | Outpatient (CLI) | payer MEDICARE, OTHER ==
[~2017-02-03 14:36] MED LIST changes: +0.9 % SODIUM CHLORIDE 50 ML IV SCH; +HEPARIN SODIUM,PORCINE 30 UNITS INJ IV SCH; +MEROPENEM IV SCH; +SODIUM CHLORIDE 0.9% IV SCH
== END 2017-02-03 14:37 ==
LOC: INF 14:36
PROVIDERS: ATTEND Internal Medicine
DX: T82.7XXA Infection and inflammatory reaction due to other cardiac and vascular devices, implants and grafts, initial encounter (principal); R53.81 Other malaise; R50.9 Fever, unspecified; Z79.01 Long term (current) use of anticoagulants
CPT/HCPCS: 96365; 96366; J2185

== ENCOUNTER 2017-02-04 11:01 | Outpatient (CLI) | payer MEDICARE, OTHER | END 2017-02-04 11:02 | LOC: INF 11:01 | PROVIDERS: ATTEND Internal Medicine | DX: T82.7XXA Infection and inflammatory reaction due to other cardiac and vascular devices, implants and grafts, initial encounter (principal); R53.81 Other malaise; R50.9 Fever, unspecified; Z79.01 Long term (current) use of anticoagulants | CPT/HCPCS: 96365; 96366; J2185 ==

== ENCOUNTER 2017-02-05 12:38 | Outpatient (CLI) | payer MEDICARE, OTHER ==
[~2017-02-05 12:38] MED LIST changes: +SALINE FLUSH 10 ML DISP.SYRIN IVF SCH
[2017-02-05 14:08] LABS: MEAN CORPUSCULAR HEMOGLOBIN 24.4 pg (28.0-34.0); MEAN CORPUSCULAR VOLUME 74.7 fl (80.0-100.0)
[2017-02-05 14:18] LABS: eGFR (African) > 60; eGFR (Non-African) 50
[2017-02-05 14:22] LABS: ANISOCYTOSIS 1+ (NEGATIVE); BASOPHILS % 1 % (0-2); MONOCYTES % 1 % (0-11); SEGMENTED NEUTROPHILS % 91 % (39-79)
[2017-02-05 14:23] LABS: HYPOCHROMASIA 1+ (NEGATIVE)
== END 2017-02-05 12:40 ==
LOC: INF 12:38
PROVIDERS: ATTEND Internal Medicine
DX: T82.7XXA Infection and inflammatory reaction due to other cardiac and vascular devices, implants and grafts, initial encounter (principal); R53.81 Other malaise; R50.9 Fever, unspecified; Z79.01 Long term (current) use of anticoagulants
CPT/HCPCS: 36415; 80053; 83615; 85025; 85610; J2185; 96365; 96366

== ENCOUNTER 2017-02-06 14:12 | Outpatient (CLI) | payer MEDICARE, OTHER | END 2017-02-06 14:13 | LOC: INF 14:12 | PROVIDERS: ATTEND Internal Medicine | DX: T82.7XXA Infection and inflammatory reaction due to other cardiac and vascular devices, implants and grafts, initial encounter (principal); R53.81 Other malaise; R50.9 Fever, unspecified; Z79.01 Long term (current) use of anticoagulants | CPT/HCPCS: 96365; 96366; J2185 ==

== ENCOUNTER 2017-02-07 15:35 | Outpatient (CLI) | payer MEDICARE, OTHER ==
[~2017-02-07 15:35] MED LIST changes: -MEROPENEM IV SCH; -SODIUM CHLORIDE 0.9% IV SCH
[2017-02-07] MEDS ORDERED: SODIUM CHLORIDE 0.9% IV SCH (21:00)
[2017-02-07] MEDS ORDERED: MEROPENEM IV SCH (21:00)
== END 2017-02-07 15:36 ==
LOC: INF 15:35
PROVIDERS: ATTEND Internal Medicine
DX: T82.7XXA Infection and inflammatory reaction due to other cardiac and vascular devices, implants and grafts, initial encounter (principal); R53.81 Other malaise; R50.9 Fever, unspecified; Z79.01 Long term (current) use of anticoagulants
CPT/HCPCS: J2185 ×2; 96365; 96366

== ENCOUNTER 2017-02-08 10:45 | Outpatient (CLI) | payer MEDICARE, OTHER ==
[~2017-02-08 10:45] MED LIST changes: +MEROPENEM IV SCH; +SODIUM CHLORIDE 0.9% IV SCH
== END 2017-02-08 10:46 ==
LOC: INF 10:45
PROVIDERS: ATTEND Internal Medicine
DX: T82.7XXA Infection and inflammatory reaction due to other cardiac and vascular devices, implants and grafts, initial encounter (principal); R53.81 Other malaise; R50.9 Fever, unspecified; Z79.01 Long term (current) use of anticoagulants
CPT/HCPCS: 96365; 96366; J2185

== ENCOUNTER 2017-02-09 13:19 | Outpatient (CLI) | payer MEDICARE, OTHER ==
[~2017-02-09 13:19] MED LIST changes: -0.9 % SODIUM CHLORIDE 50 ML IV SCH; -HEPARIN SODIUM,PORCINE 30 UNITS INJ IV SCH; -MEROPENEM IV SCH; -SALINE FLUSH 10 ML DISP.SYRIN IVF SCH; -SODIUM CHLORIDE 0.9% IV SCH
[2017-02-09] MEDS: MEROPENEM IV SCH ×2 (13:34→23:00)
[2017-02-09] MEDS: SODIUM CHLORIDE 0.9% IV SCH ×2 (13:34→23:00)
[2017-02-09] MEDS: SALINE FLUSH 10 ML DISP.SYRIN IVF SCH ×2 (14:32→23:00)
[2017-02-09] MEDS: HEPARIN SODIUM,PORCINE 30 UNITS INJ IV SCH ×2 (14:32→23:55)
[2017-02-09] MEDS: 0.9 % SODIUM CHLORIDE 50 ML IV SCH ×2 (14:33→23:25)
== END 2017-02-09 13:20 ==
LOC: INF 13:19
PROVIDERS: ATTEND Internal Medicine
DX: T82.7XXA Infection and inflammatory reaction due to other cardiac and vascular devices, implants and grafts, initial encounter (principal); R53.81 Other malaise; R50.9 Fever, unspecified; Z79.01 Long term (current) use of anticoagulants
CPT/HCPCS: 96365; 96366; J2185

== ENCOUNTER 2017-02-10 13:29 | Outpatient (CLI) | payer MEDICARE, OTHER ==
[~2017-02-10 13:29] MED LIST changes: +0.9 % SODIUM CHLORIDE 50 ML IV SCH; +HEPARIN SODIUM,PORCINE 30 UNITS INJ IV SCH; +SALINE FLUSH 10 ML DISP.SYRIN IVF SCH
[2017-02-10] MEDS: MEROPENEM IV SCH ×2 (15:24→23:00)
[2017-02-10] MEDS: SODIUM CHLORIDE 0.9% IV SCH ×2 (15:24→23:00)
== END 2017-02-10 13:30 ==
LOC: INF 13:29
PROVIDERS: ATTEND Internal Medicine
DX: T82.7XXA Infection and inflammatory reaction due to other cardiac and vascular devices, implants and grafts, initial encounter (principal); R53.81 Other malaise; R50.9 Fever, unspecified; Z79.01 Long term (current) use of anticoagulants
CPT/HCPCS: 96365; 96366; J2185

== ENCOUNTER 2017-02-11 13:16 | Outpatient (CLI) | payer MEDICARE, OTHER ==
[~2017-02-11 13:16] MED LIST changes: +MEROPENEM IV SCH; +SODIUM CHLORIDE 0.9% IV SCH
== END 2017-02-11 13:17 ==
LOC: INF 13:16
PROVIDERS: ATTEND Internal Medicine
DX: T82.7XXA Infection and inflammatory reaction due to other cardiac and vascular devices, implants and grafts, initial encounter (principal); R53.81 Other malaise; R50.9 Fever, unspecified; Z79.01 Long term (current) use of anticoagulants
CPT/HCPCS: 96365; 96366; J2185

== ENCOUNTER 2017-02-12 14:04 | Outpatient (CLI) | payer MEDICARE, OTHER ==
[2017-02-12 14:35] LABS: BASOPHILS % 0.2 (0.0-1.5); EOSINOPHILS % 0.9 % (0.0-6.8); MEAN CORPUSCULAR HEMOGLOBIN 24.2 pg (28.0-34.0); MEAN CORPUSCULAR VOLUME 72.9 fl (80.0-100.0); MONOCYTES % 3.7 % (0.0-11.0)
[2017-02-12 14:51] LABS: eGFR (African) > 60; eGFR (Non-African) > 60
== END 2017-02-12 14:05 ==
LOC: INF 14:04
PROVIDERS: ATTEND Internal Medicine
DX: T82.7XXA Infection and inflammatory reaction due to other cardiac and vascular devices, implants and grafts, initial encounter (principal); R53.81 Other malaise; R50.9 Fever, unspecified; Z79.01 Long term (current) use of anticoagulants
CPT/HCPCS: 36415; 80053; 83615; 85025; 85610; J2185; 96365; 96366

== ENCOUNTER 2017-02-13 15:01 | Outpatient (CLI) | payer MEDICARE, OTHER | END 2017-02-13 15:02 | LOC: INF 15:01 | PROVIDERS: ATTEND Internal Medicine | DX: T82.7XXA Infection and inflammatory reaction due to other cardiac and vascular devices, implants and grafts, initial encounter (principal); R53.81 Other malaise; R50.9 Fever, unspecified; Z79.01 Long term (current) use of anticoagulants | CPT/HCPCS: 96365; 96366; J2185 ==

== ENCOUNTER 2017-02-14 17:59 | Outpatient (CLI) | payer MEDICARE, OTHER ==
[~2017-02-14 17:59] MED LIST changes: +PENTAMIDINE ISETHIONATE 300 MG NEB ONE; +PENTAMIDINE ISETHIONATE 300 MG NEB SCH
== END 2017-02-14 18:00 ==
LOC: INF 17:59
PROVIDERS: ATTEND Internal Medicine
DX: T82.7XXA Infection and inflammatory reaction due to other cardiac and vascular devices, implants and grafts, initial encounter (principal); R53.81 Other malaise; R50.9 Fever, unspecified; Z79.01 Long term (current) use of anticoagulants
CPT/HCPCS: 96365; J2185

== ENCOUNTER 2017-02-15 18:12 | Outpatient (CLI) | payer MEDICARE, OTHER ==
[~2017-02-15 18:12] MED LIST changes: -PENTAMIDINE ISETHIONATE 300 MG NEB ONE; -PENTAMIDINE ISETHIONATE 300 MG NEB SCH
== END 2017-02-15 18:13 ==
LOC: INF 18:12
PROVIDERS: ATTEND Internal Medicine
DX: T82.7XXA Infection and inflammatory reaction due to other cardiac and vascular devices, implants and grafts, initial encounter (principal); R53.81 Other malaise; R50.9 Fever, unspecified; Z79.01 Long term (current) use of anticoagulants
CPT/HCPCS: 96365; 96366; J2185

== ENCOUNTER 2017-02-16 03:13 | Outpatient (CLI) | payer MEDICARE, OTHER ==
[2017-02-16] MEDS ORDERED: MEROPENEM 1,000 MG IV.SOLN. IV ONE (08:00)
[2017-02-16] MEDS ORDERED: 0.9 % SODIUM CHLORIDE 50 ML IV.SOLN IV ONE (08:00)
[2017-02-16] MEDS ORDERED: 0.9 % SODIUM CHLORIDE 100 ML IV.SOLN IV ONE (08:00)
[2017-02-16] MEDS ORDERED: SALINE FLUSH 10 ML DISP.SYRIN IVF ONE (08:00)
[2017-02-16] MEDS ORDERED: HEPARIN SODIUM,PORCINE 30 UNITS INJ IV ONE (08:00)
[2017-02-16] MEDS ORDERED: 0.9 % SODIUM CHLORIDE 50 ML IV SCH (09:00)
[2017-02-16] MEDS ORDERED: HEPARIN SODIUM,PORCINE 30 UNITS INJ IV SCH (09:00)
[2017-02-16] MEDS ORDERED: SODIUM CHLORIDE 0.9% IV SCH (09:00)
[2017-02-16] MEDS ORDERED: SALINE FLUSH 10 ML DISP.SYRIN IVF SCH (09:00)
[2017-02-16] MEDS ORDERED: MEROPENEM IV SCH (09:00)
== END 2017-02-16 03:14 ==
LOC: INF 03:13
PROVIDERS: ATTEND Internal Medicine
DX: T82.7XXA Infection and inflammatory reaction due to other cardiac and vascular devices, implants and grafts, initial encounter (principal); R53.81 Other malaise; R50.9 Fever, unspecified; Z79.01 Long term (current) use of anticoagulants
CPT/HCPCS: 96365; 96366; J2185

== ENCOUNTER 2017-02-17 09:17 | Outpatient (CLI) | payer MEDICARE, OTHER ==
[2017-02-17] MEDS: MEROPENEM IV SCH (08:50)
[2017-02-17] MEDS: SODIUM CHLORIDE 0.9% IV SCH (08:50)
[~2017-02-17 09:17] MED LIST changes: -0.9 % SODIUM CHLORIDE 50 ML IV SCH; -MEROPENEM IV SCH; -SODIUM CHLORIDE 0.9% IV SCH
[2017-02-17] MEDS: 0.9 % SODIUM CHLORIDE 50 ML IV SCH (09:50)
[2017-02-18] MEDS: SODIUM CHLORIDE 0.9% IV SCH (02:50)
[2017-02-18] MEDS: MEROPENEM IV SCH (02:50)
[2017-02-18] MEDS: 0.9 % SODIUM CHLORIDE 50 ML IV SCH (02:50)
== END 2017-02-17 09:18 ==
LOC: INF 09:17
PROVIDERS: ATTEND Internal Medicine
DX: T82.7XXA Infection and inflammatory reaction due to other cardiac and vascular devices, implants and grafts, initial encounter (principal); R53.81 Other malaise; R50.9 Fever, unspecified; Z79.01 Long term (current) use of anticoagulants
CPT/HCPCS: 96365; 96366; J2185

== ENCOUNTER 2017-02-19 13:45 | Outpatient (CLI) | payer MEDICARE, OTHER ==
[~2017-02-19 13:45] MED LIST changes: -HEPARIN SODIUM,PORCINE 30 UNITS INJ IV SCH; -SALINE FLUSH 10 ML DISP.SYRIN IVF SCH
[2017-02-19 14:20] LABS: MEAN CORPUSCULAR HEMOGLOBIN 23.5 pg (28.0-34.0); MEAN CORPUSCULAR VOLUME 71.8 fl (80.0-100.0)
[2017-02-19 14:31] LABS: eGFR (African) 52; eGFR (Non-African) 43
[2017-02-19 14:58] LABS: BASOPHILS % 1 % (0-2); EOSINOPHILS % 1 % (0-7); MONOCYTES % 1 % (0-11); SEGMENTED NEUTROPHILS % 90 % (39-79)
[2017-02-19 14:59] LABS: ANISOCYTOSIS 1+ (NEGATIVE)
== END 2017-02-19 13:46 ==
LOC: INF 13:45
PROVIDERS: ATTEND Internal Medicine
DX: T82.7XXA Infection and inflammatory reaction due to other cardiac and vascular devices, implants and grafts, initial encounter (principal); R53.81 Other malaise; R50.9 Fever, unspecified; Z79.01 Long term (current) use of anticoagulants
CPT/HCPCS: 36415; 80053; 83615; 85025; 85610; J2185; 96365; 96366

== ENCOUNTER 2017-02-20 14:08 | Outpatient (CLI) | payer MEDICARE, OTHER ==
[~2017-02-20 14:08] MED LIST changes: +0.9 % SODIUM CHLORIDE 50 ML IV SCH; +HEPARIN SODIUM,PORCINE 30 UNITS INJ IV SCH; +MEROPENEM IV SCH; +SALINE FLUSH 10 ML DISP.SYRIN IVF SCH; +SODIUM CHLORIDE 0.9% IV SCH
== END 2017-02-20 14:10 ==
LOC: INF 14:08
PROVIDERS: ATTEND Internal Medicine
DX: T82.7XXA Infection and inflammatory reaction due to other cardiac and vascular devices, implants and grafts, initial encounter (principal); R53.81 Other malaise; R50.9 Fever, unspecified; Z79.01 Long term (current) use of anticoagulants
CPT/HCPCS: 96365; 96366; J2185

== ENCOUNTER 2017-02-21 12:35 | Outpatient (CLI) | payer MEDICARE, OTHER | END 2017-02-21 12:36 | LOC: INF 12:35 | PROVIDERS: ATTEND Internal Medicine | DX: T82.7XXA Infection and inflammatory reaction due to other cardiac and vascular devices, implants and grafts, initial encounter (principal); R53.81 Other malaise; R50.9 Fever, unspecified; Z79.01 Long term (current) use of anticoagulants | CPT/HCPCS: 96365; 96366; J2185 ==

== ENCOUNTER 2017-02-22 23:07 | Outpatient (CLI) | payer MEDICARE, OTHER ==
[~2017-02-22 23:07] MED LIST changes: -0.9 % SODIUM CHLORIDE 50 ML IV SCH; -HEPARIN SODIUM,PORCINE 30 UNITS INJ IV SCH; -MEROPENEM IV SCH; -SODIUM CHLORIDE 0.9% IV SCH
[2017-02-22] MEDS: 0.9 % SODIUM CHLORIDE 50 ML IV SCH ×2 (23:57→23:59)
[2017-02-22] MEDS: HEPARIN SODIUM,PORCINE 30 UNITS INJ IV SCH ×2 (23:57→23:59)
[2017-02-22] MEDS: MEROPENEM IV SCH ×2 (23:57→23:58)
[2017-02-22] MEDS: SODIUM CHLORIDE 0.9% IV SCH ×2 (23:57→23:58)
== END 2017-02-22 23:10 ==
LOC: INF 23:07
PROVIDERS: ATTEND Internal Medicine
DX: T82.7XXA Infection and inflammatory reaction due to other cardiac and vascular devices, implants and grafts, initial encounter (principal); R53.81 Other malaise; R50.9 Fever, unspecified; Z79.01 Long term (current) use of anticoagulants
CPT/HCPCS: 96365; J2185

== ENCOUNTER 2017-02-23 12:29 | Outpatient (CLI) | payer MEDICARE, OTHER ==
[~2017-02-23 12:29] MED LIST changes: -SALINE FLUSH 10 ML DISP.SYRIN IVF SCH
== END 2017-02-23 12:30 ==
LOC: INF 12:29
PROVIDERS: ATTEND Internal Medicine
DX: T82.7XXA Infection and inflammatory reaction due to other cardiac and vascular devices, implants and grafts, initial encounter (principal); R53.81 Other malaise; R50.9 Fever, unspecified; Z79.01 Long term (current) use of anticoagulants
CPT/HCPCS: 96365; 96366; J2185

== ENCOUNTER 2017-02-24 13:52 | Outpatient (CLI) | payer MEDICARE, OTHER | END 2017-02-24 13:53 | LOC: INF 13:52 | PROVIDERS: ATTEND Internal Medicine | DX: T82.7XXA Infection and inflammatory reaction due to other cardiac and vascular devices, implants and grafts, initial encounter (principal); R53.81 Other malaise; R50.9 Fever, unspecified; Z79.01 Long term (current) use of anticoagulants | CPT/HCPCS: 96365; 96366; J2185 ==

== ENCOUNTER 2017-02-25 21:58 | Outpatient (CLI) | payer MEDICARE, OTHER | END 2017-02-25 22:00 | LOC: INF 21:58 | PROVIDERS: ATTEND Internal Medicine | DX: T82.7XXA Infection and inflammatory reaction due to other cardiac and vascular devices, implants and grafts, initial encounter (principal); R53.81 Other malaise; R50.9 Fever, unspecified; Z79.01 Long term (current) use of anticoagulants | CPT/HCPCS: 96365; J2185 ==

== ENCOUNTER 2017-02-26 14:50 | Outpatient (CLI) | payer MEDICARE, OTHER ==
[2017-02-26 15:19] LABS: BASOPHILS % 0.4 (0.0-1.5); EOSINOPHILS % 1.8 % (0.0-6.8); MEAN CORPUSCULAR HEMOGLOBIN 23.2 pg (28.0-34.0); MEAN CORPUSCULAR VOLUME 72.9 fl (80.0-100.0); MONOCYTES % 3.3 % (0.0-11.0); NEUTROPHILS # 5.2 # k/uL (1.4-7.7)
[2017-02-26 15:30] LABS: eGFR (African) > 60; eGFR (Non-African) 59
== END 2017-02-26 14:52 ==
LOC: INF 14:50
PROVIDERS: ATTEND Internal Medicine
DX: T82.7XXA Infection and inflammatory reaction due to other cardiac and vascular devices, implants and grafts, initial encounter (principal); R53.81 Other malaise; R50.9 Fever, unspecified; Z79.01 Long term (current) use of anticoagulants
CPT/HCPCS: 36415; 80053; 83615; 85025; 85610; J2185; 96365

== ENCOUNTER 2017-02-26 18:16 | Emergency (ER) | payer MEDICARE, OTHER ==
--- NOTE | 2017-02-26 18:53 | Diagnostic Imaging Report ---
[facility] [address] [facility] [address] [place], [place]. [address] Report Submission Date: Feb 26, 2017 6:50:42 PM CDT Patient Study Name: ERVIN ROJAS Date: Feb 26, 2017 6:34:22 PM CDT Modality Type: CR Gender: M Description: CHEST : 52 Institution: [facility] Physician: LUCAS VARGAS - ER A single frontal view of the chest History: Shortness of breath Findings: Comparison: December 23, 2016 Low lung volumes. Cardiomegaly with pulmonary vascular congestion are noted. Left pulmonary hilum is again noted to be prominent. Left chest wall cardiac pacemaker have its leads terminating in the right atrium and right ventricle, patient is post sternotomy Right central venous catheter terminates in the right atrium. Ppatchy atelectasis/infiltrate in the bilateral lower lobes. No acute osseous pathology Impression: Cardiomegaly with pulmonary vascular congestion/ edema Bibasal atelectasis/ patchy infiltrates, small bilateral pleural effusions may be associated. Prominent left pulmonary hilum again seen, may be related to pulmonary vascular congestion/pulmonary arterial hypertension. Suggest attention on followup. Electronically signed on Feb 26, 2017 6:50:42 PM CDT by: Sravanthi ANGELA
--- NOTE | 2017-02-26 19:06 | ED Physician Documentation ---
General Adult - HISTORIAN Historian: patient - HPI Stated Complaint: sob Chief Complaint: General Adult Onset: days ago Timing: worse Severity: moderate Further Comments: yes (Pt is a 67 yo male with an LVAD (Heart Mate II) device and hx persistent organism infections, with recurrent anemia 2nd to LVAD device. Pt c/o sob and has arranged to be admitted to [facility] in [place]. Pt is here per [facility] to establish that he is stable for transport. Pt sees Dr. Brown at [place].) - ROS CONST: weakness EYES/ENT: none CVS/RESP: shortness of breath GI/: none MS/SKIN/LYMPH: none - PAST HX Past History: other (COPD, LVAD cardiac assist device Heart Mate II, chronic infections.) Surgeries/Procedures: other (cardiac assist device.) - SOCIAL HX Smoking History: quit greater than 1 year - FAMILY HX Family History: No - VITAL SIGNS Vital Signs: Vital Signs Temp Pulse Resp BP Pulse Ox 106/83 02/01/17 15:48 - REVIEWED ASSESSMENTS Nursing Assessment Reviewed: Yes Vitals Reviewed: Yes <Andrew Buckner - Last Filed: 02/26/17 19:24> - VITAL SIGNS Vital Signs: Vital Signs Temp Pulse Resp BP Pulse Ox 84 106/83 99 02/26/17 21:30 02/01/17 15:48 02/26/17 21:30 <ANUSHA BALLESTEROS - Last Filed: 02/26/17 21:50> - PAST HX Allergies/Adverse Reactions: Allergies Allergy/AdvReac Type Severity Reaction Status Date / Time Penicillins Allergy Verified 02/26/17 18:32 Sulfa (Sulfonamide Allergy Verified 02/26/17 18:32 Antibiotics) Home Medications: Ambulatory Orders Medication Instructions Recorded 0.9 % Sodium Chloride [Nasal Mist] 126 ml NS QID PRN 12/30/16 Albuterol Sulfate [Proair 90 mcg IH QID 12/30/16 Respiclick] Alprazolam [Xanax] 0.25 mg PO Q8H PRN 12/30/16 Amoxicillin [Amoxil] 500 mg PO BID 12/30/16 Aspirin [Oziel] 81 mg PO DAILY 12/30/16 Esomeprazole Magnesium [Nexium] 40 mg PO 717 12/30/16 Finasteride [Proscar] 5 mg PO DAILY 12/30/16 Furosemide [Lasix] 20 mg PO 714 12/30/16 Insulin Glargine,Hum.rec.anlog 25 unit SQ HS 12/30/16 [Lantus Solostar] Insulin Lispro [Humalog] See Protocol SQ CMEAL 12/30/16 Meropenem 2,000 mg IV Q12 12/30/16 Metoprolol Succinate [Toprol XL] 12.5 mg PO DAILY 12/30/16 Pentamidine Isethionate [Nebupent] 300 mg IH Q30D 12/30/16 Potassium Chloride [Klor-Con 10] 10 meq PO BID 12/30/16 Pregabalin [Lyrica] 100 mg PO TID 12/30/16 Psyllium Seed [Metamucil] 1 each PO 1100 PRN 12/30/16 Sertraline HCl [Zoloft] 100 mg PO DAILY 12/30/16 Simethicone [Gas-X] 80 mg PO QID PRN 12/30/16 Tamsulosin HCl [Flomax] 0.4 mg PO HS 12/30/16 Warfarin Sodium [Coumadin] 3 mg PO 1800 12/30/16 diphenhydrAMINE HCL [Benadryl] 50 mg PO NOW PRN 12/30/16 oxyCODONE HCL/ACETAMINOPHEN 2 tab PO Q4 PRN 12/30/16 [Percocet 5-325 mg Tablet] predniSONE [Deltasone] 40 mg PO QD 12/30/16 rOPINIRole HCL [Requip] 0.5 mg PO HS 12/30/16 Progress - Progress Progress: CXR: Cardiomegaly with pulmonary vascular congestion/ edema Bibasal atelectasis/ patchy infiltrates, small bilateral pleural effusions may be associated. Prominent left pulmonary hilum again seen, may be related to pulmonary vascular congestion/pulmonary arterial hypertension. Suggest attention on followup. Care transferred to [facility] @ 1900. Awaiting Pro-BNP result. Pt appears stable for transport to [facility]. - EKG/XRAY/CT EKG: NSR ((on LVAD cardiac assist device), PA interval 219 ms; LAD.) <Andrew Buckner - Last Filed: 02/26/17 19:24> - Progress Progress: BNP 1200+. Given 20 mg lasix po. <ANUSHA BALLESTEROS - Last Filed: 02/26/17 21:50> ED Results Lab/Radiology - Lab Results Lab Results: Lab Results 02/26/17 02/26/17 15:05 15:05 Creatine Kinase 20 U/L U/L (0-225) CK-MB (CK-2) 1.3 ng/mL ng/mL (0.0-5.6) Troponin I < 0.03 ng/mL L ng/mL (0.03-0.06) - Orders Orders: ED Orders Category Date Time Status Continuous EKG monitoring Q30M Care 02/26/17 18:29 Active Continuous Pulse Oximetry Q30M Care 02/26/17 18:[address] Saline Lock/IV NOW Care 02/26/17 18:29 Active CHEST 1 VIEW [RAD] Stat Exams 02/26/17 18:29 Completed CKMB Stat Lab 02/26/17 15:05 Completed CREATINE KINASE Routine Lab 02/26/17 15:05 Completed TROPONIN I (cTnI) Stat Lab 02/26/17 15:05 Completed Oxygen Daily Oxygen 02/26/17 18:30 Ordered <Andrew Buckner - Last Filed: 02/26/17 19:24> - Lab Results Lab Results: Lab Results 02/26/17 02/26/17 02/26/17 19:29 15:05 15:05 Creatine Kinase 20 U/L U/L (0-225) CK-MB (CK-2) 1.3 ng/mL ng/mL (0.0-5.6) Troponin I < 0.03 ng/mL L ng/mL (0.03-0.06) NT-Pro-B Natriuret Pep 1250.8 pg/mL H pg/mL (15.0-125.0) - Orders Orders: ED Orders Category Date Time Status Continuous EKG monitoring Q30M Care 02/26/17 18:29 Active Continuous Pulse Oximetry Q30M Care 02/26/17 18:[address] Saline Lock/IV NOW Care 02/26/17 18:29 Active CHEST 1 VIEW [RAD] Stat Exams 02/26/17 18:29 Completed BNP [NT-proBNP] Stat Lab 02/26/17 19:29 Completed CKMB Stat Lab 02/26/17 15:05 Completed CREATINE KINASE Routine Lab 02/26/17 15:05 Completed TROPONIN I (cTnI) Stat Lab 02/26/17 15:05 Completed Furosemide [Lasix] Med 02/26/17 20:10 Discontinued 20 mg PO NOW ONE Pregabalin [Lyrica] Med 02/26/17 21:00 Ordered 150 mg PO BID oxyCODONE HCL/ACETAMINOPHEN [Percocet 5-325 mg Tablet] Med 02/26/17 20:47 Discontinued 2 each PO NOW ONE Oxygen Daily Oxygen 02/26/17 18:30 Ordered <ANUSHA BALLESTEROS - Last Filed: 02/26/17 21:50> General Adult Physical Exam - PHYSICAL EXAM GENERAL APPEARANCE: mild distress EENT: pharynx normal NECK: normal inspection, supple RESPIRATORY: no resp distress, chest non-tender, breath sounds normal CVS: reg rate & rhythm ABDOMEN: soft, no organomegaly, normal bowel sounds BACK: normal inspection, no CVA tenderness SKIN: warm/dry, normal color EXTREMITIES: non-tender, normal range of motion, no evidence of injury NEURO: oriented X3, motor nml, sensation nml <Andrew Buckner - Last Filed: 02/26/17 19:24> Discharge Decision to Admit: NO <Andrew Buckner - Last Filed: 02/26/17 19:24> <ANUSHA BALLESTEROS - Last Filed: 02/26/17 21:50> Clincal Impression: sob on cardiac assist device Referrals: Maricarmen Haider MD [Primary Care Provider] - Home Medications: Ambulatory Orders 0.9 % Sodium Chloride [Nasal Mist] 126 ml NS QID PRN 12/30/16 Albuterol Sulfate [Proair Respiclick] 90 mcg IH QID 12/30/16 Alprazolam [Xanax] 0.25 mg PO Q8H PRN 12/30/16 Amoxicillin [Amoxil] 500 mg PO BID 12/30/16 Aspirin [Oziel] 81 mg PO DAILY 12/30/16 Esomeprazole Magnesium [Nexium] 40 mg PO 717 12/30/16 Finasteride [Proscar] 5 mg PO DAILY 12/30/16 Furosemide [Lasix] 20 mg PO 714 12/30/16 Insulin Glargine,Hum.rec.anlog [Lantus Solostar] 25 unit SQ HS 12/30/16 Insulin Lispro [Humalog] See Protocol SQ CMEAL 12/30/16 Meropenem 2,000 mg IV Q12 12/30/16 Metoprolol Succinate [Toprol XL] 12.5 mg PO DAILY 12/30/16 Pentamidine Isethionate [Nebupent] 300 mg IH Q30D 12/30/16 Potassium Chloride [Klor-Con 10] 10 meq PO BID 12/30/16 Pregabalin [Lyrica] 100 mg PO TID 12/30/16 Psyllium Seed [Metamucil] 1 each PO 1100 PRN 12/30/16 Sertraline HCl [Zoloft] 100 mg PO DAILY 12/30/16 Simethicone [Gas-X] 80 mg PO QID PRN 12/30/16 Tamsulosin HCl [Flomax] 0.4 mg PO HS 12/30/16 Warfarin Sodium [Coumadin] 3 mg PO 1800 12/30/16 diphenhydrAMINE HCL [Benadryl] 50 mg PO NOW PRN 12/30/16 oxyCODONE HCL/ACETAMINOPHEN [Percocet 5-325 mg Tablet] 2 tab PO Q4 PRN 12/30/16 predniSONE [Deltasone] 40 mg PO QD 12/30/16 rOPINIRole HCL [Requip] 0.5 mg PO HS 12/30/16 Condition: Stable Disposition: 02 XFER SHT-TRM HOSP
[2017-02-26] MEDS ORDERED: FUROSEMIDE 40 MG TABLET PO ONE (20:10)
[2017-02-26] MEDS ORDERED: oxyCODONE/ACETAMINOPHEN 5/325 TABLET PO ONE (20:47)
[2017-02-26] MEDS ORDERED: PREGABALIN 50 MG CAPSULE PO ONE (20:57)
[2017-02-26] MEDS ORDERED: PREGABALIN 50 MG CAPSULE PO SCH (21:00)
[2017-02-26 22:18] VITALS: BP 82/64
== END 2017-02-26 22:16 | disposition short-term general hospital (02) ==
LOC: ED 18:16
DX: R06.02 Shortness of breath (principal); Z95.811 Presence of heart assist device
CPT/HCPCS: 71010; 82550; 82553; 83880; 84484; A9270; 99284

== ENCOUNTER 2017-03-03 21:00 | Outpatient (CLI) | payer MEDICARE, OTHER ==
[~2017-03-03 21:00] MED LIST changes: +0.9 % SODIUM CHLORIDE 50 ML IV SCH; +HEPARIN SODIUM,PORCINE 30 UNITS INJ IV SCH; +MEROPENEM IV SCH; +SALINE FLUSH 10 ML DISP.SYRIN IVF SCH; +SODIUM CHLORIDE 0.9% IV SCH
== END 2017-03-03 22:50 ==
LOC: INF 21:00
PROVIDERS: ATTEND Internal Medicine
DX: T82.7XXA Infection and inflammatory reaction due to other cardiac and vascular devices, implants and grafts, initial encounter (principal); R53.81 Other malaise; R50.9 Fever, unspecified; Z79.01 Long term (current) use of anticoagulants
CPT/HCPCS: 96365; J2185

== ENCOUNTER 2017-03-04 11:21 | Outpatient (CLI) | payer MEDICARE, OTHER | END 2017-03-04 11:22 | LOC: INF 11:21 | PROVIDERS: ATTEND Internal Medicine | DX: T82.7XXA Infection and inflammatory reaction due to other cardiac and vascular devices, implants and grafts, initial encounter (principal); R53.81 Other malaise; R50.9 Fever, unspecified; Z79.01 Long term (current) use of anticoagulants | CPT/HCPCS: 96365; 96366; J2185 ==

== ENCOUNTER 2017-03-05 11:31 | Outpatient (CLI) | payer MEDICARE, OTHER ==
[~2017-03-05 11:31] MED LIST changes: -0.9 % SODIUM CHLORIDE 50 ML IV SCH; -HEPARIN SODIUM,PORCINE 30 UNITS INJ IV SCH; -MEROPENEM IV SCH; -SALINE FLUSH 10 ML DISP.SYRIN IVF SCH; -SODIUM CHLORIDE 0.9% IV SCH
[2017-03-05 12:04] LABS: BASOPHILS % 0.2 (0.0-1.5); EOSINOPHILS % 0.8 % (0.0-6.8); MONOCYTES % 3.2 % (0.0-11.0); NEUTROPHILS # 6.3 # k/uL (1.4-7.7)
[2017-03-05 12:14] LABS: eGFR (African) 56; eGFR (Non-African) 46
[2017-03-05 12:41] LABS: MEAN CORPUSCULAR HEMOGLOBIN 23.4 pg (28.0-34.0); MEAN CORPUSCULAR VOLUME 73.3 fl (80.0-100.0)
[2017-03-05 12:42] LABS: ANISOCYTOSIS 1+ (NEGATIVE); HYPOCHROMASIA 1+ (NEGATIVE)
== END 2017-03-05 11:32 ==
LOC: INF 11:31
PROVIDERS: ATTEND Nurse Practitioner
DX: T82.7XXA Infection and inflammatory reaction due to other cardiac and vascular devices, implants and grafts, initial encounter (principal); R53.81 Other malaise; R50.9 Fever, unspecified; Z79.01 Long term (current) use of anticoagulants
CPT/HCPCS: 36415; 80053; 83615; 85025; 85610; 96365; 96366; J2185

== ENCOUNTER 2017-03-06 14:37 | Outpatient (CLI) | payer MEDICARE, OTHER | END 2017-03-06 14:40 | LOC: INF 14:37 | PROVIDERS: ATTEND Nurse Practitioner | DX: T82.7XXA Infection and inflammatory reaction due to other cardiac and vascular devices, implants and grafts, initial encounter (principal); R53.81 Other malaise; R50.9 Fever, unspecified; Z79.01 Long term (current) use of anticoagulants | CPT/HCPCS: 96365; 96366; J2185 ==

== ENCOUNTER 2017-03-07 11:26 | Outpatient (CLI) | payer MEDICARE, OTHER | END 2017-03-07 11:29 | LOC: INF 11:26 | PROVIDERS: ATTEND Nurse Practitioner | DX: T82.7XXA Infection and inflammatory reaction due to other cardiac and vascular devices, implants and grafts, initial encounter (principal); R53.81 Other malaise; R50.9 Fever, unspecified; Z79.01 Long term (current) use of anticoagulants | CPT/HCPCS: 96365; 96366; J2185 ==

== ENCOUNTER 2017-03-08 12:47 | Outpatient (CLI) | payer MEDICARE, OTHER | END 2017-03-08 12:50 | LOC: INF 12:47 | PROVIDERS: ATTEND Nurse Practitioner | DX: T82.7XXA Infection and inflammatory reaction due to other cardiac and vascular devices, implants and grafts, initial encounter (principal); R53.81 Other malaise; R50.9 Fever, unspecified; Z79.01 Long term (current) use of anticoagulants | CPT/HCPCS: 96365; 96366; J2185 ==

== ENCOUNTER 2017-03-09 12:31 | Outpatient (CLI) | payer MEDICARE, OTHER | END 2017-03-09 12:33 | LOC: INF 12:31 | PROVIDERS: ATTEND Nurse Practitioner | DX: T82.7XXA Infection and inflammatory reaction due to other cardiac and vascular devices, implants and grafts, initial encounter (principal); R53.81 Other malaise; R50.9 Fever, unspecified; Z79.01 Long term (current) use of anticoagulants | CPT/HCPCS: 96365; 96366; J2185 ==

== ENCOUNTER 2017-03-10 14:09 | Outpatient (CLI) | payer MEDICARE, OTHER ==
[2017-03-10] MEDS: MEROPENEM IV SCH ×2 (14:30→22:35)
[2017-03-10] MEDS: SALINE FLUSH 10 ML DISP.SYRIN IVF SCH ×2 (14:30→22:30)
[2017-03-10] MEDS: SODIUM CHLORIDE 0.9% IV SCH ×2 (14:30→22:35)
[2017-03-10] MEDS: 0.9 % SODIUM CHLORIDE 50 ML IV SCH ×2 (15:10→23:00)
[2017-03-10] MEDS: HEPARIN SODIUM,PORCINE 30 UNITS INJ IV SCH ×2 (20:10→23:30)
== END 2017-03-10 14:10 ==
LOC: INF 14:09
PROVIDERS: ATTEND Nurse Practitioner
DX: T82.7XXA Infection and inflammatory reaction due to other cardiac and vascular devices, implants and grafts, initial encounter (principal); R53.81 Other malaise; R50.9 Fever, unspecified; Z79.01 Long term (current) use of anticoagulants
CPT/HCPCS: 96365; 96366; J2185

== ENCOUNTER 2017-03-11 21:30 | Outpatient (CLI) | payer MEDICARE, OTHER ==
[~2017-03-11 21:30] MED LIST changes: +0.9 % SODIUM CHLORIDE 50 ML IV SCH; +HEPARIN SODIUM,PORCINE 30 UNITS INJ IV SCH; +MEROPENEM 1,000 MG in 0.9 % SODIUM CHLORIDE 100 ML IV SCH; +SALINE FLUSH 10 ML DISP.SYRIN IVF SCH
[2017-03-13] MEDS ORDERED: MEROPENEM 1,000 MG IV.SOLN. IV ONE (23:16)
== END 2017-03-11 21:32 ==
LOC: INF 21:30
PROVIDERS: ATTEND Nurse Practitioner
DX: T82.7XXA Infection and inflammatory reaction due to other cardiac and vascular devices, implants and grafts, initial encounter (principal); R53.81 Other malaise; R50.9 Fever, unspecified; Z79.01 Long term (current) use of anticoagulants
CPT/HCPCS: 96365; 96366; J2185

== ENCOUNTER 2017-03-12 12:48 | Outpatient (CLI) | payer MEDICARE, OTHER ==
[~2017-03-12 12:48] MED LIST changes: -HEPARIN SODIUM,PORCINE 30 UNITS INJ IV SCH; -MEROPENEM 1,000 MG in 0.9 % SODIUM CHLORIDE 100 ML IV SCH; +MEROPENEM IV SCH; -SALINE FLUSH 10 ML DISP.SYRIN IVF SCH; +SODIUM CHLORIDE 0.9% IV SCH
[2017-03-12 13:06] LABS: BASOPHILS % 0.1 (0.0-1.5); EOSINOPHILS % 0.3 % (0.0-6.8); MEAN CORPUSCULAR HEMOGLOBIN 23.6 pg (28.0-34.0); MEAN CORPUSCULAR VOLUME 75.6 fl (80.0-100.0); MONOCYTES % 2.7 % (0.0-11.0); NEUTROPHILS # 8.6 # k/uL (1.4-7.7)
[2017-03-12 13:25] LABS: eGFR (African) > 60; eGFR (Non-African) 59
== END 2017-03-12 12:50 ==
LOC: INF 12:48
PROVIDERS: ATTEND Nurse Practitioner
DX: T82.7XXA Infection and inflammatory reaction due to other cardiac and vascular devices, implants and grafts, initial encounter (principal); R53.81 Other malaise; R50.9 Fever, unspecified; Z79.01 Long term (current) use of anticoagulants
CPT/HCPCS: 36415; 80053; 83615; 85025; 85610; 96365; 96366; J2185

== ENCOUNTER 2017-03-13 15:05 | Outpatient (CLI) | payer MEDICARE, OTHER ==
[~2017-03-13 15:05] MED LIST changes: +PENTAMIDINE ISETHIONATE 300 MG NEB ONE; +PENTAMIDINE ISETHIONATE 300 MG NEB SCH
== END 2017-03-13 15:06 ==
LOC: INF 15:05
PROVIDERS: ATTEND Nurse Practitioner
DX: T82.7XXA Infection and inflammatory reaction due to other cardiac and vascular devices, implants and grafts, initial encounter (principal); R53.81 Other malaise; R50.9 Fever, unspecified; Z79.01 Long term (current) use of anticoagulants
CPT/HCPCS: 94640; 94760; 96365; 96366; J2185

== ENCOUNTER 2017-03-14 13:26 | Outpatient (CLI) | payer MEDICARE, OTHER ==
[~2017-03-14 13:26] MED LIST changes: -MEROPENEM IV SCH; -PENTAMIDINE ISETHIONATE 300 MG NEB ONE; -PENTAMIDINE ISETHIONATE 300 MG NEB SCH; -SODIUM CHLORIDE 0.9% IV SCH
[2017-03-14] MEDS ORDERED: MEROPENEM IV SCH (15:00)
[2017-03-14] MEDS ORDERED: SODIUM CHLORIDE 0.9% IV SCH (15:00)
== END 2017-03-14 13:27 ==
LOC: INF 13:26
PROVIDERS: ATTEND Nurse Practitioner
DX: T82.7XXA Infection and inflammatory reaction due to other cardiac and vascular devices, implants and grafts, initial encounter (principal); R53.81 Other malaise; R50.9 Fever, unspecified; Z79.01 Long term (current) use of anticoagulants
CPT/HCPCS: 96365; 96366; J2185

== ENCOUNTER 2017-03-15 13:50 | Outpatient (CLI) | payer MEDICARE, OTHER ==
[~2017-03-15 13:50] MED LIST changes: +MEROPENEM IV SCH; +SODIUM CHLORIDE 0.9% IV SCH
== END 2017-03-15 13:52 ==
LOC: INF 13:50
PROVIDERS: ATTEND Nurse Practitioner
DX: T82.7XXA Infection and inflammatory reaction due to other cardiac and vascular devices, implants and grafts, initial encounter (principal); R53.81 Other malaise; R50.9 Fever, unspecified; Z79.01 Long term (current) use of anticoagulants
CPT/HCPCS: 96365; 96366; J2185

== ENCOUNTER 2017-03-16 10:15 | Outpatient (CLI) | payer MEDICARE, OTHER ==
[~2017-03-16 10:15] MED LIST changes: -MEROPENEM IV SCH; -SODIUM CHLORIDE 0.9% IV SCH
[2017-03-16] MEDS: MEROPENEM IV SCH (20:04)
[2017-03-16] MEDS: SODIUM CHLORIDE 0.9% IV SCH (20:04)
[2017-03-17] MEDS: MEROPENEM IV SCH (00:46)
[2017-03-17] MEDS: SODIUM CHLORIDE 0.9% IV SCH (00:46)
== END 2017-03-16 10:16 ==
LOC: INF 10:15
PROVIDERS: ATTEND Nurse Practitioner
DX: T82.7XXA Infection and inflammatory reaction due to other cardiac and vascular devices, implants and grafts, initial encounter (principal); R53.81 Other malaise; R50.9 Fever, unspecified; Z79.01 Long term (current) use of anticoagulants
CPT/HCPCS: 96365; 96366; J2185

== ENCOUNTER 2017-03-17 11:31 | Outpatient (CLI) | payer MEDICARE, OTHER ==
[~2017-03-17 11:31] MED LIST changes: -0.9 % SODIUM CHLORIDE 50 ML IV SCH
== END 2017-03-17 11:32 ==
LOC: INF 11:31
PROVIDERS: ATTEND Nurse Practitioner
DX: T82.7XXA Infection and inflammatory reaction due to other cardiac and vascular devices, implants and grafts, initial encounter (principal); R53.81 Other malaise; R50.9 Fever, unspecified; Z79.01 Long term (current) use of anticoagulants
CPT/HCPCS: 96365; 96366; J2185

== ENCOUNTER 2017-03-18 09:00 | Outpatient (CLI) | payer MEDICARE, OTHER | END 2017-03-18 09:02 | LOC: INF 09:00 | PROVIDERS: ATTEND Nurse Practitioner | DX: T82.7XXA Infection and inflammatory reaction due to other cardiac and vascular devices, implants and grafts, initial encounter (principal); R53.81 Other malaise; R50.9 Fever, unspecified; Z79.01 Long term (current) use of anticoagulants | CPT/HCPCS: 96365; J2185 ==

== ENCOUNTER 2017-03-19 14:48 | Outpatient (CLI) | payer MEDICARE, OTHER ==
[~2017-03-19 14:48] MED LIST changes: +MEROPENEM IV ONE; +SODIUM CHLORIDE 0.9% IV ONE
[2017-03-19] MEDS ORDERED: SALINE FLUSH 10 ML DISP.SYRIN IVF ONE (15:01)
[2017-03-19 15:28] LABS: MEAN CORPUSCULAR HEMOGLOBIN 23.3 pg (28.0-34.0); MEAN CORPUSCULAR VOLUME 74.5 fl (80.0-100.0)
[2017-03-19 15:45] LABS: eGFR (African) 56; eGFR (Non-African) 46
[2017-03-19 16:00] LABS: SEGMENTED NEUTROPHILS % 90 % (39-79)
[2017-03-19 16:01] LABS: ANISOCYTOSIS 1+ (NEGATIVE)
== END 2017-03-19 14:50 ==
LOC: INF 14:48
PROVIDERS: ATTEND Nurse Practitioner
DX: T82.7XXA Infection and inflammatory reaction due to other cardiac and vascular devices, implants and grafts, initial encounter (principal); R53.81 Other malaise; R50.9 Fever, unspecified; Z79.01 Long term (current) use of anticoagulants
CPT/HCPCS: 36415; 80053; 83615; 85025; 85610; 96365; 96366; J2185

== ENCOUNTER 2017-03-20 08:16 | Outpatient (CLI) | payer MEDICARE, OTHER ==
[~2017-03-20 08:16] MED LIST changes: -MEROPENEM IV ONE; -SODIUM CHLORIDE 0.9% IV ONE
[2017-03-20] MEDS ORDERED: 0.9 % SODIUM CHLORIDE 50 ML IV SCH (15:00)
[2017-03-20] MEDS ORDERED: SODIUM CHLORIDE 0.9% IV SCH (19:00)
[2017-03-20] MEDS ORDERED: MEROPENEM IV SCH (19:00)
== END 2017-03-20 08:17 ==
LOC: INF 08:16
PROVIDERS: ATTEND Nurse Practitioner
DX: T82.7XXA Infection and inflammatory reaction due to other cardiac and vascular devices, implants and grafts, initial encounter (principal); R53.81 Other malaise; R50.9 Fever, unspecified; Z79.01 Long term (current) use of anticoagulants
CPT/HCPCS: 96365; 96366; J2185

== ENCOUNTER 2017-03-21 14:27 | Outpatient (CLI) | payer MEDICARE, OTHER ==
[~2017-03-21 14:27] MED LIST changes: +0.9 % SODIUM CHLORIDE 50 ML IV SCH; +MEROPENEM IV SCH; +SODIUM CHLORIDE 0.9% IV SCH
== END 2017-03-21 14:28 ==
LOC: INF 14:27
PROVIDERS: ATTEND Nurse Practitioner
DX: T82.7XXA Infection and inflammatory reaction due to other cardiac and vascular devices, implants and grafts, initial encounter (principal); R53.81 Other malaise; R50.9 Fever, unspecified; Z79.01 Long term (current) use of anticoagulants
CPT/HCPCS: 96365; J2185

== ENCOUNTER 2017-03-22 22:50 | Outpatient (CLI) | payer MEDICARE, OTHER ==
[~2017-03-22 22:50] MED LIST changes: -MEROPENEM IV SCH; -SODIUM CHLORIDE 0.9% IV SCH
[2017-03-22] MEDS: SODIUM CHLORIDE 0.9% IV SCH (23:18)
[2017-03-22] MEDS: MEROPENEM IV SCH (23:18)
== END 2017-03-22 22:52 ==
LOC: INF 22:50
PROVIDERS: ATTEND Nurse Practitioner
DX: T82.7XXA Infection and inflammatory reaction due to other cardiac and vascular devices, implants and grafts, initial encounter (principal); R53.81 Other malaise; R50.9 Fever, unspecified; Z79.01 Long term (current) use of anticoagulants
CPT/HCPCS: 96365; 96366; J2185

== ENCOUNTER 2017-03-23 15:21 | Outpatient (CLI) | payer MEDICARE, OTHER ==
[~2017-03-23 15:21] MED LIST changes: -0.9 % SODIUM CHLORIDE 50 ML IV SCH; +MEROPENEM IV SCH; +SODIUM CHLORIDE 0.9% IV SCH
[2017-03-23] MEDS ORDERED: 0.9 % SODIUM CHLORIDE 50 ML IV SCH (16:00)
== END 2017-03-23 15:22 ==
LOC: INF 15:21
PROVIDERS: ATTEND Nurse Practitioner
DX: T82.7XXA Infection and inflammatory reaction due to other cardiac and vascular devices, implants and grafts, initial encounter (principal); R53.81 Other malaise; R50.9 Fever, unspecified; Z79.01 Long term (current) use of anticoagulants
CPT/HCPCS: 96365; J2185

== ENCOUNTER 2017-03-24 15:51 | Outpatient (CLI) | payer MEDICARE, OTHER ==
[~2017-03-24 15:51] MED LIST changes: +0.9 % SODIUM CHLORIDE 50 ML IV SCH
== END 2017-03-24 15:52 ==
LOC: INF 15:51
PROVIDERS: ATTEND Nurse Practitioner
DX: T82.7XXA Infection and inflammatory reaction due to other cardiac and vascular devices, implants and grafts, initial encounter (principal); R53.81 Other malaise; R50.9 Fever, unspecified; Z79.01 Long term (current) use of anticoagulants
CPT/HCPCS: 96365; 96366; J2185

== ENCOUNTER 2017-03-25 15:05 | Outpatient (CLI) | payer MEDICARE, OTHER ==
[~2017-03-25 15:05] MED LIST changes: -0.9 % SODIUM CHLORIDE 50 ML IV SCH; -MEROPENEM IV SCH; -SODIUM CHLORIDE 0.9% IV SCH
[2017-03-25] MEDS: SODIUM CHLORIDE 0.9% IV SCH (15:15)
[2017-03-25] MEDS: MEROPENEM IV SCH (15:15)
== END 2017-03-25 15:06 ==
LOC: INF 15:05
PROVIDERS: ATTEND Nurse Practitioner
DX: T82.7XXA Infection and inflammatory reaction due to other cardiac and vascular devices, implants and grafts, initial encounter (principal); R53.81 Other malaise; R50.9 Fever, unspecified; Z79.01 Long term (current) use of anticoagulants
CPT/HCPCS: 96365; 96366; J2185

== ENCOUNTER 2017-03-26 21:08 | Outpatient (CLI) | payer MEDICARE, OTHER ==
[~2017-03-26 21:08] MED LIST changes: +0.9 % SODIUM CHLORIDE 50 ML IV SCH; +MEROPENEM IV SCH; +SODIUM CHLORIDE 0.9% IV SCH
== END 2017-03-26 21:10 ==
LOC: INF 21:08
PROVIDERS: ATTEND Nurse Practitioner
DX: T82.7XXA Infection and inflammatory reaction due to other cardiac and vascular devices, implants and grafts, initial encounter (principal); R53.81 Other malaise; R50.9 Fever, unspecified; Z79.01 Long term (current) use of anticoagulants
CPT/HCPCS: 96365; 96366; J2185

== ENCOUNTER 2017-03-27 15:35 | Outpatient (CLI) | payer MEDICARE, OTHER ==
[~2017-03-27 15:35] MED LIST changes: -0.9 % SODIUM CHLORIDE 50 ML IV SCH; -MEROPENEM IV SCH; -SODIUM CHLORIDE 0.9% IV SCH
[2017-03-27 15:58] LABS: BASOPHILS % 0.5 (0.0-1.5); EOSINOPHILS % 1.4 % (0.0-6.8); MEAN CORPUSCULAR HEMOGLOBIN 23.7 pg (28.0-34.0); MEAN CORPUSCULAR VOLUME 72.4 fl (80.0-100.0); MONOCYTES % 3.8 % (0.0-11.0); NEUTROPHILS # 9.3 # k/uL (1.4-7.7)
[2017-03-27 16:13] LABS: eGFR (African) 39; eGFR (Non-African) 32
[2017-03-27] MEDS ORDERED: SALINE FLUSH 10 ML DISP.SYRIN IVF ONE (22:03)
[2017-03-27] MEDS ORDERED: HEPARIN SODIUM,PORCINE 30 UNITS INJ IV ONE (22:03)
== END 2017-03-27 15:36 ==
LOC: INF 15:35
PROVIDERS: ATTEND Nurse Practitioner
DX: T82.7XXA Infection and inflammatory reaction due to other cardiac and vascular devices, implants and grafts, initial encounter (principal); R53.81 Other malaise; R50.9 Fever, unspecified; Z79.01 Long term (current) use of anticoagulants
CPT/HCPCS: 36415; 80053; 83615; 85025; 85610; J2185; 96365; 96366

== ENCOUNTER 2017-03-28 18:40 | Outpatient (CLI) | payer MEDICARE, OTHER ==
[~2017-03-28 18:40] MED LIST changes: +0.9 % SODIUM CHLORIDE 50 ML IV SCH; +MEROPENEM IV SCH; +SODIUM CHLORIDE 0.9% IV SCH
== END 2017-03-28 18:42 ==
LOC: INF 18:40
PROVIDERS: ATTEND Nurse Practitioner
DX: Z53.9 Procedure and treatment not carried out, unspecified reason (principal)
CPT/HCPCS: J2185

== ENCOUNTER 2017-03-28 21:52 | Emergency (ER) | payer MEDICARE, OTHER ==
--- NOTE | 2017-03-28 22:56 | ED Physician Documentation ---
General Adult - HISTORIAN Historian: patient, paramedics - [facility] Stated Complaint: SYNCOPE Chief Complaint: General Adult Additional Information: Walking up stais, lost consciousness, fell down stairs. Face hurts, pressure. Says he has been passing out 2-3 times a week for 2 months. Says all his doctors are aware. Nothing hurts but face. On 10L per NC if sedentary, 15 L/NC if active. - ROS CONST: no problems - PAST HX Past History: other (heart disease with LVAD, central line, implanted defib. Multi resistant organism infection) Surgeries/Procedures: other (see above. Cervical fusion) Allergies/Adverse Reactions: Allergies Allergy/AdvReac Type Severity Reaction Status Date / Time Penicillins Allergy Verified 03/28/17 22:00 Sulfa (Sulfonamide Allergy Verified 03/28/17 22:00 Antibiotics) Home Medications: Ambulatory Orders Medication Instructions Recorded 0.9 % Sodium Chloride [Nasal Mist] 126 ml NS QID PRN 12/30/16 Albuterol Sulfate [Proair 90 mcg IH QID 12/30/16 Respiclick] Alprazolam [Xanax] 0.25 mg PO Q8H PRN 12/30/16 Amoxicillin [Amoxil] 500 mg PO BID 12/30/16 Aspirin [Oziel] 81 mg PO DAILY 12/30/16 Esomeprazole Magnesium [Nexium] 40 mg PO 717 12/30/16 Finasteride [Proscar] 5 mg PO DAILY 12/30/16 Furosemide [Lasix] 20 mg PO 714 12/30/16 Insulin Glargine,Hum.rec.anlog 25 unit SQ HS 12/30/16 [Lantus Solostar] Insulin Lispro [Humalog] See Protocol SQ CMEAL 12/30/16 Meropenem 2,000 mg IV Q12 12/30/16 Metoprolol Succinate [Toprol XL] 12.5 mg PO DAILY 12/30/16 Pentamidine Isethionate [Nebupent] 300 mg IH Q30D 12/30/16 Potassium Chloride [Klor-Con 10] 10 meq PO BID 12/30/16 Pregabalin [Lyrica] 100 mg PO TID 12/30/16 Psyllium Seed [Metamucil] 1 each PO 1100 PRN 12/30/16 Sertraline HCl [Zoloft] 100 mg PO DAILY 12/30/16 Simethicone [Gas-X] 80 mg PO QID PRN 12/30/16 Tamsulosin HCl [Flomax] 0.4 mg PO HS 12/30/16 Warfarin Sodium [Coumadin] 3 mg PO 1800 12/30/16 diphenhydrAMINE HCL [Benadryl] 50 mg PO NOW PRN 12/30/16 oxyCODONE HCL/ACETAMINOPHEN 2 tab PO Q4 PRN 12/30/16 [Percocet 5-325 mg Tablet] predniSONE [Deltasone] 40 mg PO QD 12/30/16 rOPINIRole HCL [Requip] 0.5 mg PO HS 12/30/16 - SOCIAL HX Smoking History: non-smoker - FAMILY HX Family History: No (no signif) - VITAL SIGNS Vital Signs: Vital Signs Temp Pulse Resp BP Pulse Ox 97 F L 71 22 101/64 100 03/28/17 21:55 03/28/17 21:55 03/28/17 21:55 03/28/17 21:55 03/28/17 21:55 - REVIEWED ASSESSMENTS Nursing Assessment Reviewed: Yes Vitals Reviewed: Yes Progress - Progress Progress: Computed tomography of the head without contrast History: Syncope and head injury Findings: Transverse brain sections are obtained without contrast revealing mild global brain atrophy without intracranial hemorrhage, mass lesion, fluid collection, or loss of conrad white differentiation. The skull is intact. Impression: Brain atrophy. Electronically signed on March 28, 2017 10:50:44 PM CDT by: Abraham Mcgarry Portable chest History: Syncope and fall Findings: Low lung volumes, obesity implantable cardiac defibrillator, sternotomy, cervical fusion hardware, and superior vena cava catheter are observed. Pulmonary vascular congestion and mild cardiomegaly are present. Mild interstitial edema cannot be excluded at the lung bases. There has been no significant change since February 26, 2017. Impression: Extensive postoperative change, low lung volumes, cardiomegaly, pulmonary vascular congestion, and possibly mild pulmonary edema without change. Electronically signed on March 28, 2017 10:52:13 PM CDT by: Abraham Mcgarry ED Results Lab/Radiology - Orders Orders: ED Orders Category Date Time Status CHEST 1 VIEW [RAD] Stat Exams 03/28/[address] BRAIN W/O CONTRAST Stat Exams 03/28/17 Ordered CBC/PLATELET/DIFF Routine Lab 05/17/17 22:41 Received CMP Routine Lab 03/28/17 22:41 Received PT-INR Routine Lab 03/28/17 22:41 Received URINALYSIS Routine Lab 03/28/17 Ordered General Adult Physical Exam - PHYSICAL EXAM GENERAL APPEARANCE: mild distress (dried blood on face.) EENT: eye inspection normal, ENT inspection normal, MARIA LUISA NECK: normal inspection, supple, other (well healed posterior c-spine scar) RESPIRATORY: no resp distress, breath sounds normal CVS: other (LVAD) ABDOMEN: soft, normal bowel sounds, other (pelvis stable) RECTAL: deferred BACK: normal inspection, other (no midline tenderness) SKIN: warm/dry, normal color (scattered bruising on legs, less then 1 cm diameter) EXTREMITIES: no evidence of injury (other than bruising. ) NEURO: CN's nml as tested, motor nml, sensation nml, cognition normal, other ( reflexes 2+ throughout) Discharge Clincal Impression: Syncope Referrals: Maricarmen Haider MD [Primary Care Provider] - 2 Days Home Medications: Ambulatory Orders 0.9 % Sodium Chloride [Nasal Mist] 126 ml NS QID PRN 12/30/16 Albuterol Sulfate [Proair Respiclick] 90 mcg IH QID 12/30/16 Alprazolam [Xanax] 0.25 mg PO Q8H PRN 12/30/16 Amoxicillin [Amoxil] 500 mg PO BID 12/30/16 Aspirin [Oziel] 81 mg PO DAILY 12/30/16 Esomeprazole Magnesium [Nexium] 40 mg PO 717 12/30/16 Finasteride [Proscar] 5 mg PO DAILY 12/30/16 Furosemide [Lasix] 20 mg PO 714 12/30/16 Insulin Glargine,Hum.rec.anlog [Lantus Solostar] 25 unit SQ HS 12/30/16 Insulin Lispro [Humalog] See Protocol SQ CMEAL 12/30/16 Meropenem 2,000 mg IV Q12 12/30/16 Metoprolol Succinate [Toprol XL] 12.5 mg PO DAILY 12/30/16 Pentamidine Isethionate [Nebupent] 300 mg IH Q30D 12/30/16 Potassium Chloride [Klor-Con 10] 10 meq PO BID 12/30/16 Pregabalin [Lyrica] 100 mg PO TID 12/30/16 Psyllium Seed [Metamucil] 1 each PO 1100 PRN 12/30/16 Sertraline HCl [Zoloft] 100 mg PO DAILY 12/30/16 Simethicone [Gas-X] 80 mg PO QID PRN 12/30/16 Tamsulosin HCl [Flomax] 0.4 mg PO HS 12/30/16 Warfarin Sodium [Coumadin] 3 mg PO 1800 12/30/16 diphenhydrAMINE HCL [Benadryl] 50 mg PO NOW PRN 12/30/16 oxyCODONE HCL/ACETAMINOPHEN [Percocet 5-325 mg Tablet] 2 tab PO Q4 PRN 12/30/16 predniSONE [Deltasone] 40 mg PO QD 12/30/16 rOPINIRole HCL [Requip] 0.5 mg PO HS 12/30/16 Condition: Fair Disposition: 01 HOME, SELF-CARE Decision to Admit: NO Decision Time: 23:09
[2017-03-28 22:57] LABS: MEAN CORPUSCULAR HEMOGLOBIN 23.6 pg (28.0-34.0); MEAN CORPUSCULAR VOLUME 72.9 fl (80.0-100.0)
[2017-03-28 23:16] VITALS: BP 97/70
--- NOTE | 2017-03-28 23:22 | Diagnostic Imaging Report ---
PANKAJ BALLESTEROS~ [facility] [address] [facility] [address] [place], [place]. [address] ~ ~ ~ ~ Report Submission Date: March 28, 2017 10:52:13 PM CDT Patient ~ Study Name: ERVIN ROJAS ~ Date: March 28, 2017 10:21:29 PM CDT ~ Modality Type: CR Gender: M ~ Description: CHEST : 52 ~ Institution: [facility] Physician: PANKAJ BALLESTEROS ~ ~ ~ ~ Portable chest History: Syncope and fall Findings: Low lung volumes, obesity implantable cardiac defibrillator, sternotomy, cervical fusion hardware, and superior vena cava catheter are observed. Pulmonary vascular congestion and mild cardiomegaly are present. Mild interstitial edema cannot be excluded at the lung bases. There has been no significant change since February 26, 2017. Impression: Extensive postoperative change, low lung volumes, cardiomegaly, pulmonary vascular congestion, and possibly mild pulmonary edema without change. ~ Electronically signed on March 28, 2017 10:52:13 PM CDT by: Abraham ANGELA
--- NOTE | 2017-03-28 23:24 | Diagnostic Imaging Report ---
PANKAJ BALLESTEROS~ [facility] [address] [facility] [address] [place] [address]. [id number] ~ ~ ~ ~ Report Submission Date: March 28, 2017 10:50:44 PM CDT Patient ~ Study Name: ERVIN ROJAS ~ Date: March 28, 2017 10:12:09 PM CDT ~ Modality Type: CT\SR Gender: M ~ Description: CT BRAIN W/O CONTRAST : 52 ~ Institution: [facility] Physician: PANKAJ BALLESTEROS ~ ~ ~ ~ Computed tomography of the head without contrast History: Syncope and head injury Findings: Transverse brain sections are obtained without contrast revealing mild global brain atrophy without intracranial hemorrhage, mass lesion, fluid collection, or loss of conrad white differentiation. The skull is intact. Impression: Brain atrophy. ~ Electronically signed on March 28, 2017 10:50:44 PM CDT by: Abraham ANGELA
== END 2017-03-28 23:16 | disposition home or self-care (01) ==
LOC: ED 21:52
DX: R42 Dizziness and giddiness (principal); W19.XXXA Unspecified fall, initial encounter; Y93.9 Activity, unspecified; Y99.9 Unspecified external cause status
CPT/HCPCS: 70450; 71010; 80053; 85025; 85610; 99283

== ENCOUNTER 2017-03-29 12:02 | Outpatient (CLI) | payer MEDICARE, OTHER ==
[2017-03-28 23:16] VITALS: BP 97/70
[~2017-03-29 12:02] MED LIST changes: -0.9 % SODIUM CHLORIDE 50 ML IV SCH; -MEROPENEM IV SCH; -SODIUM CHLORIDE 0.9% IV SCH
[2017-03-29] MEDS: SODIUM CHLORIDE 0.9% IV SCH (22:40)
[2017-03-29] MEDS: MEROPENEM IV SCH (22:40)
[2017-03-29] MEDS: 0.9 % SODIUM CHLORIDE 50 ML IV SCH (22:41)
== END 2017-03-29 12:03 ==
LOC: INF 12:02
PROVIDERS: ATTEND Nurse Practitioner
DX: T82.7XXA Infection and inflammatory reaction due to other cardiac and vascular devices, implants and grafts, initial encounter (principal); R53.81 Other malaise; R50.9 Fever, unspecified; Z79.01 Long term (current) use of anticoagulants
CPT/HCPCS: 96365; 96366; J2185

== ENCOUNTER 2017-03-30 12:05 | Outpatient (CLI) | payer MEDICARE, OTHER ==
[~2017-03-30 12:05] MED LIST changes: +0.9 % SODIUM CHLORIDE 100 ML IV ONE
== END 2017-03-30 12:06 ==
LOC: INF 12:05
PROVIDERS: ATTEND Nurse Practitioner
DX: T82.7XXA Infection and inflammatory reaction due to other cardiac and vascular devices, implants and grafts, initial encounter (principal); R53.81 Other malaise; R50.9 Fever, unspecified; Z79.01 Long term (current) use of anticoagulants
CPT/HCPCS: J2185 ×2; 96365; 96366

== ENCOUNTER 2017-03-31 13:12 | Outpatient (CLI) | payer MEDICARE, OTHER ==
[~2017-03-31 13:12] MED LIST changes: -0.9 % SODIUM CHLORIDE 100 ML IV ONE
== END 2017-03-31 13:13 ==
LOC: INF 13:12
PROVIDERS: ATTEND Nurse Practitioner
DX: T82.7XXA Infection and inflammatory reaction due to other cardiac and vascular devices, implants and grafts, initial encounter (principal); R53.81 Other malaise; R50.9 Fever, unspecified; Z79.01 Long term (current) use of anticoagulants
CPT/HCPCS: 96365; 96366; J2185

== ENCOUNTER 2017-04-01 19:15 | Outpatient (CLI) | payer MEDICARE, OTHER | END 2017-04-01 19:16 | LOC: INF 19:15 | PROVIDERS: ATTEND Nurse Practitioner | DX: T82.7XXA Infection and inflammatory reaction due to other cardiac and vascular devices, implants and grafts, initial encounter (principal); R53.81 Other malaise; R50.9 Fever, unspecified; Z79.01 Long term (current) use of anticoagulants | CPT/HCPCS: 96365; J2185 ==

== ENCOUNTER 2017-04-02 13:10 | Outpatient (CLI) | payer MEDICARE, OTHER ==
[2017-04-02 13:57] LABS: BASOPHILS % 0.5 (0.0-1.5); EOSINOPHILS % 2.7 % (0.0-6.8); MEAN CORPUSCULAR HEMOGLOBIN 23.6 pg (28.0-34.0); MONOCYTES % 3.4 % (0.0-11.0); eGFR (African) > 60; eGFR (Non-African) 54
[2017-04-02] MEDS ORDERED: SODIUM CHLORIDE 0.9% IV ONE (14:00)
[2017-04-02] MEDS ORDERED: MEROPENEM IV ONE (14:00)
== END 2017-04-02 13:11 ==
LOC: INF 13:10
PROVIDERS: ATTEND Nurse Practitioner
DX: T82.7XXA Infection and inflammatory reaction due to other cardiac and vascular devices, implants and grafts, initial encounter (principal); R53.81 Other malaise; R50.9 Fever, unspecified; Z79.01 Long term (current) use of anticoagulants
CPT/HCPCS: 36415; 80053; 83615; 85025; 85610; J2185; 96365; 96366

== ENCOUNTER 2017-04-03 12:08 | Outpatient (CLI) | payer MEDICARE, OTHER | END 2017-04-03 12:10 | LOC: INF 12:08 | PROVIDERS: ATTEND Nurse Practitioner | DX: T82.7XXA Infection and inflammatory reaction due to other cardiac and vascular devices, implants and grafts, initial encounter (principal); R53.81 Other malaise; R50.9 Fever, unspecified; Z79.01 Long term (current) use of anticoagulants | CPT/HCPCS: 96365; 96366; J2185 ==

== ENCOUNTER 2017-04-04 21:30 | Outpatient (CLI) | payer MEDICARE, OTHER ==
[~2017-04-04 21:30] MED LIST changes: -0.9 % SODIUM CHLORIDE 100 ML IV.SOLN IV ONE; +0.9 % SODIUM CHLORIDE 50 ML IV SCH; -0.9 % SODIUM CHLORIDE 50 ML IV.SOLN IV ONE; -HEPARIN SODIUM,PORCINE 30 UNITS INJ IV ONE; -MEROPENEM 1,000 MG IV.SOLN. IV ONE; +MEROPENEM IV SCH; -SALINE FLUSH 10 ML DISP.SYRIN IVF ONE; +SODIUM CHLORIDE 0.9% IV SCH
[2017-04-04] MEDS ORDERED: HEPARIN SODIUM,PORCINE 30 UNITS INJ IV ONE (22:00)
[2017-04-04] MEDS ORDERED: SALINE FLUSH 10 ML DISP.SYRIN IVF ONE (22:00)
[2017-04-04] MEDS ORDERED: 0.9 % SODIUM CHLORIDE 50 ML IV.SOLN IV ONE (22:00)
[2017-04-04] MEDS ORDERED: MEROPENEM 1,000 MG IV.SOLN. IV ONE (22:00)
[2017-04-04] MEDS ORDERED: 0.9 % SODIUM CHLORIDE 100 ML IV.SOLN IV ONE (22:00)
== END 2017-04-04 21:32 ==
LOC: INF 21:30
PROVIDERS: ATTEND Nurse Practitioner
DX: T82.7XXA Infection and inflammatory reaction due to other cardiac and vascular devices, implants and grafts, initial encounter (principal); R53.81 Other malaise; R50.9 Fever, unspecified; Z79.01 Long term (current) use of anticoagulants
CPT/HCPCS: 96365; J2185

== ENCOUNTER 2017-04-05 14:37 | Outpatient (CLI) | payer MEDICARE, OTHER ==
[~2017-04-05 14:37] MED LIST changes: +0.9 % SODIUM CHLORIDE 100 ML IV.SOLN IV ONE; +0.9 % SODIUM CHLORIDE 50 ML IV.SOLN IV ONE; +HEPARIN SODIUM,PORCINE 30 UNITS INJ IV ONE; +MEROPENEM 1,000 MG IV.SOLN. IV ONE; +SALINE FLUSH 10 ML DISP.SYRIN IVF ONE
== END 2017-04-05 14:40 ==
LOC: INF 14:37
PROVIDERS: ATTEND Nurse Practitioner
DX: T82.7XXA Infection and inflammatory reaction due to other cardiac and vascular devices, implants and grafts, initial encounter (principal); R53.81 Other malaise; R50.9 Fever, unspecified; Z79.01 Long term (current) use of anticoagulants
CPT/HCPCS: 96365; 96366; J2185

== ENCOUNTER 2017-04-07 03:30 | Outpatient (CLI) | payer MEDICARE, OTHER ==
[~2017-04-07 03:30] MED LIST changes: -0.9 % SODIUM CHLORIDE 50 ML IV SCH; -MEROPENEM IV SCH; -SODIUM CHLORIDE 0.9% IV SCH
[2017-04-07] MEDS ORDERED: 0.9 % SODIUM CHLORIDE 50 ML IV.SOLN IV ONE (08:00)
[2017-04-07] MEDS ORDERED: MEROPENEM 1,000 MG IV.SOLN. IV ONE (08:00)
[2017-04-07] MEDS ORDERED: SALINE FLUSH 10 ML DISP.SYRIN IVF ONE (08:00)
[2017-04-07] MEDS ORDERED: 0.9 % SODIUM CHLORIDE 100 ML IV.SOLN IV ONE (08:00)
[2017-04-07] MEDS ORDERED: HEPARIN SODIUM,PORCINE 30 UNITS INJ IV ONE (08:00)
[2017-04-08 12:56] VITALS: BP 85/68
== END 2017-04-07 03:31 ==
LOC: INF 03:30
PROVIDERS: ATTEND Nurse Practitioner
DX: T82.7XXA Infection and inflammatory reaction due to other cardiac and vascular devices, implants and grafts, initial encounter (principal); R53.81 Other malaise; R50.9 Fever, unspecified; Z79.01 Long term (current) use of anticoagulants
CPT/HCPCS: J2185 ×2; 96365

== ENCOUNTER 2017-04-08 07:52 | Emergency (ER) | payer MEDICARE, OTHER ==
[2017-04-08] MEDS ORDERED: 0.9 % SODIUM CHLORIDE 500 ML IV ONE ×2 (08:00→08:26)
[2017-04-08] MEDS ORDERED: ASPIRIN 81 MG CHEW TAB PO ONE (08:21)
[2017-04-08] MEDS ORDERED: WARFARIN SODIUM 1 MG TABLET PO ONE (08:24)
[2017-04-08] MEDS ORDERED: INSULIN REGULAR, HUMAN 100 UNIT/ML 3ML VIAL SQ ONE ×2 (08:29→11:50)
[2017-04-08 08:38] LABS: BASOPHILS % 0.2 (0.0-1.5); EOSINOPHILS % 1.4 % (0.0-6.8); MEAN CORPUSCULAR VOLUME 74.6 fl (80.0-100.0); NEUTROPHILS # 6.6 # k/uL (1.4-7.7)
[2017-04-08 08:42] LABS: eGFR (African) > 60; eGFR (Non-African) 59
--- NOTE | 2017-04-08 08:51 | Diagnostic Imaging Report ---
[facility] [address] [facility] [address] Report Submission Date: April 08, 2017 8:39:48 AM CDT Patient Study Name: ERVIN ROJAS Date: April 08, 2017 8:27:26 AM CDT Modality Type: CR Gender: M Description: CHEST : 52 Institution: [facility] Physician: TOSHA HARDY - BARB Chest -one view CLINICAL HISTORY: Chest pain. FINDINGS: Examination of the chest single portable AP view 04/08/2017 0827 hr with comparison to examination of 03/28/2017 demonstrates postoperative changes with multiple sternotomy wires. Transvenous pacemaker overlies the left hemithorax without change. Dual lumen right central venous catheter is again demonstrated. There is increasing bilateral pulmonary vascular congestion. Lungs are hypoventilated. Retrocardiac region is dense suggesting left lower lobe infiltrate or atelectasis. IMPRESSION: Increasing congestion. Left lower lobe infiltrate or atelectasis. Hypoventilation. Electronically signed on April 08, 2017 8:39:48 AM CDT by: Blaez ANGELA
[2017-04-08] MEDS ORDERED: 0.9 % SODIUM CHLORIDE 100 ML IV ONE (09:01)
[2017-04-08] MEDS ORDERED: MEROPENEM 1,000 MG IV.SOLN. IV ONE (09:01)
[2017-04-08 09:02] LABS: ANISOCYTOSIS 1+ (NEGATIVE); MEAN CORPUSCULAR HEMOGLOBIN 23.7 pg (28.0-34.0)
[2017-04-08] MEDS ORDERED: MEROPENEM IV ONE (10:00)
[2017-04-08] MEDS ORDERED: SODIUM CHLORIDE 0.9% IV ONE (10:00)
[2017-04-08] MEDS ORDERED: oxyCODONE/ACETAMINOPHEN 5/325 TABLET PO ONE (10:03)
[2017-04-08] MEDS ORDERED: ALPRAZOLAM 0.5 MG TABLET PO ONE (10:04)
[2017-04-08 12:56] VITALS: BP 85/68
[2017-04-08] MEDS ORDERED: SODIUM CHLORIDE 0.9% IV SCH (13:00)
[2017-04-08] MEDS ORDERED: MEROPENEM IV SCH (13:00)
[2017-04-09 05:43] LABS: APPEARANCE,URINE CLEAR (CLEAR); COLOR,URINE AMBER (YELLOW); OCCULT BLOOD,URINE TRACE-INTACT (NEGATIVE); PH URINE 6.5 (5.0 - 8.0); UROBILINOGEN URINE 0.2 Eu (0.2-1.0)
--- NOTE | 2017-06-11 12:04 | ED Physician Documentation ---
Fall - HISTORIAN Historian: patient - HPI Chief Complaint: Fall Additional Information: pt fell in br yest est 1600hrs-he falls freq and can usually gradually go down on knees-has severe weakness. he wears a lt vent asst device LVAD. 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 he takes meropenum 2 gm bid kout patient. has not had any since approc 0330 yesterday. he was to be tnsf to [facility] yest but refused to go because sick and was adm [facility]. PT IS ALERT ALERT BUT CONFUSED TO EXACT TIMES AND EVENTS OF EXPERIENCE ON THE HOME FLOOR. His c/o this am is lt lat cp weakness fatigue nausea sob. he was able to crawl tko find phone this am and called 911. he denies any specific structural pain from experience on floor. he states he was able to crawl and even made towel palet on floor but was too weak to get to standing position. he usually walks w/o asst device such as cane or walker. Onset: yesterday (est 1600hrs) Where: home r: moderate Associated Symptoms:: no loss of consciousness Location of Pain/Injury: chest Injury to Right Extremity: none Injury to Left Extremity: none - ROS CONST: weakness, other (as above) NEURO: other (alert fair historian as to events of past 24 hrs) MS/SKIN/LYMPH: weakness, other (chest pain lt lat but denies any specific part of body ssoreness from experience on floor. this kpresumably because of his ability to crawl make palet and move to various positions. we will await lab for confirmation) CVS/RESP: chest pain GI/: nausea. denies: problems urinating, vomiting (is eating some breakfast at this time) - PAST HX Past History: cardiac disease, diabetes Type 1, COPD (gerd chronic chf) Allergies/Adverse Reactions: Allergies Allergy/AdvReac Type Severity Reaction Status Date / Time Penicillins Allergy Verified 05/10/17 16:15 Sulfa (Sulfonamide Allergy Verified 05/10/17 16:15 Antibiotics) Home Medications: Ambulatory Orders Medication Instructions Recorded 0.9 % Sodium Chloride [Nasal Mist] 126 ml NS QID PRN 12/30/16 Albuterol Sulfate [Proair 90 mcg IH QID 12/30/16 Respiclick] Alprazolam [Xanax] 0.25 mg PO Q8H PRN 12/30/16 Amoxicillin [Amoxil] 500 mg PO BID 12/30/16 Aspirin [Oziel] 81 mg PO DAILY 12/30/16 Esomeprazole Magnesium [Nexium] 40 mg PO 717 12/30/16 Finasteride [Proscar] 5 mg PO DAILY 12/30/16 Furosemide [Lasix] 20 mg PO 714 12/30/16 Insulin Glargine,Hum.rec.anlog 25 unit SQ HS 12/30/16 [Lantus Solostar] Insulin Lispro [Humalog] See Protocol SQ CMEAL 12/30/16 Meropenem 2,000 mg IV Q12 12/30/16 Metoprolol Succinate [Toprol XL] 12.5 mg PO DAILY 12/30/16 Pentamidine Isethionate [Nebupent] 300 mg IH Q30D 12/30/16 Potassium Chloride [Klor-Con 10] 10 meq PO BID 12/30/16 Pregabalin [Lyrica] 100 mg PO TID 12/30/16 Psyllium Seed [Metamucil] 1 each PO 1100 PRN 12/30/16 Sertraline HCl [Zoloft] 100 mg PO DAILY 12/30/16 Simethicone [Gas-X] 80 mg PO QID PRN 12/30/16 Tamsulosin HCl [Flomax] 0.4 mg PO HS 12/30/16 Warfarin Sodium [Coumadin] 3 mg PO 1800 12/30/16 diphenhydrAMINE HCL [Benadryl] 50 mg PO NOW PRN 12/30/16 oxyCODONE HCL/ACETAMINOPHEN 2 tab PO Q4 PRN 12/30/16 [Percocet 5-325 mg Tablet] predniSONE [Deltasone] 40 mg PO QD 12/30/16 rOPINIRole HCL [Requip] 0.5 mg PO HS 12/30/16 - SOCIAL HX Smoking History: non-smoker Alcohol Use: none Drug Use: none - FAMILY HX Family History: no significant history - VITAL SIGNS Vital Signs: Vital Signs Temp Pulse Resp BP Pulse Ox 97/70 03/28/17 23:16 - REVIEWED ASSESSMENTS Nursing Assessment Reviewed: Yes Vitals Reviewed: Yes ED Results Lab/Radiology - Lab Results Lab Results: Lab Results 04/08/17 04/08/17 04/08/17 08:25 08:25 08:25 WBC 7.70 K/ul K/ul (4.00-12.00) RBC 2.86 M/ul L M/ul (3.90-5.20) Hgb 6.8 g/dL L* g/dL (12.0-18.0) Hct 21.3 % L % (37.0-53.0) MCV 74.6 fl L fl (80.0-100.0) MCH 23.6 pg L pg (28.0-34.0) MCHC 31.7 g/dL g/dL (30.0-36.0) RDW 20.2 % H % (11.3-14.3) Plt Count 127 K/mm3 L K/mm3 (130-400) Neut % (Auto) 85.8 % H % (39.0-79.0) Lymph % (Auto) 7.4 % L % (16.0-50.0) [place] % (Auto) 4.0 % % (0.0-11.0) Eos % (Auto) 1.4 % % (0.0-6.8) Baso % (Auto) 0.2 (0.0-1.5) Neut # 6.6 # k/uL # k/uL (1.4-7.7) Lymph # 0.6 # k/uL # k/uL (0.6-4.0) [place] # 0.3 # k/uL # k/uL (0.0-0.9) Eos # 0.1 # k/uL # k/uL (0.0-0.6) Baso # 0.0 # k/uL # k/uL (0.0-0.5) Reactive Lymphs % 1.3 % % (0.0-5.0) Reactive Lymphs # 0.1 # k/uL # k/uL (0.0-0.8) Sodium 140 mmol/L mmol/L (136-145) Potassium 3.7 mmol/L mmol/L (3.5-5.0) Chloride 103 mmol/L mmol/L (98-110) Carbon Dioxide 32 mmol/L mmol/L (20-32) BUN 20 mg/dL mg/dL (10-26) Creatinine 1.3 mg/dL mg/dL (0.4-1.5) Est GFR ( Amer) > 60 (60 - ) Est GFR (Non-Af Amer) 59 L (60 - ) Glucose 178 mg/dL H mg/dL (70-99) Calcium 9.2 mg/dL mg/dL (8.5-10.5) Total Bilirubin 1.5 mg/dL H mg/dL (0.2-1.2) AST 42 U/L H U/L (0-41) ALT 32 U/L U/L (0-45) Alkaline Phosphatase 91 U/L U/L (46-116) Creatine Kinase 22 U/L U/L (0-225) CK-MB (CK-2) Pending Troponin I < 0.03 ng/mL L ng/mL (0.03-0.06) Total Protein 6.2 g/dL g/dL (6.0-8.5) Albumin 3.9 g/dL g/dL (3.0-5.5) - Orders Orders: ED Orders Category Date Time Status Continuous EKG monitoring Q30M Care 04/08/17 08:21 Ordered Continuous Pulse Oximetry Q30M Care 04/08/17 08:21 Ordered Continuous Pulse Oximetry Q30M Care 04/08/17 08:30 Ordered CHEST 1 VIEW [RAD] Stat Exams 04/08/17 08:21 Ordered CBC/PLATELET/DIFF Routine Lab 04/08/17 08:21 Ordered CKMB Stat Lab 04/08/17 Ordered CMP Routine Lab 04/08/17 08:21 Ordered CREATINE KINASE Routine Lab 04/08/17 08:21 Ordered RBC/PLATELET MORPHOLOGY Routine Lab 04/08/17 08:25 Completed TROPONIN I (cTnI) Stat Lab 04/08/17 08:21 Ordered 0.9 % Sodium Chloride [Normal Saline] 500 ml Med 04/08/17 08:00 Discontinued IV .STK-MED 0.9 % Sodium Chloride [Normal Saline] 500 ml Med 04/08/17 08:26 Ordered IV NOW Aspirin Med 04/08/17 08:21 Once 324 mg PO NOW ONE Insulin Regular, Human [Humulin R] Med 04/08/17 08:29 Once 3 unit SQ NOW ONE Meropenem 2,000 mg Med 04/08/17 13:00 Ordered 0.9 % Sodium Chloride [Sodium Chloride] 50 ml IV Q8 Warfarin Sodium [Coumadin] Med 04/08/17 08:24 Once 3 mg PO NOW ONE Oxygen Daily Oxygen 04/08/17 08:30 Ordered EKG WITH COMPARISON Stat Ther 04/08/17 08:21 Ordered Fall Physical Exam - Physical Exam General Appearance: moderate distress Head: non-tender, no swelling Neck: No: non-tender (stiffness but chronic) Eye: MARIA LUISA, EOMI ENT: nml external inspection, airway nml Resp/CVS: chest non-tender, no ecchymosis, rales (spo2 = 93) Abdomen: soft, non-tender Neuro: oriented x3, sensation nml, motor nml, mood/affect nml Skin: color nml, no rash. No: cyanosis, diaphoresis, pallor, ecchymosis, skin rash Back: normal inspection Extremities: atraumatic - Niall Coma Score Eyes Open: Spontaneous Speech: Oriented Motor: Obeys Commands Discharge Clincal Impression: Fall, Incontinent of feces, LVAD (left ventricular assist device) present, Dyspnea, Pain Referrals: Maricarmen Haider MD [Primary Care Provider] - 2 Days Home Medications: Ambulatory Orders 0.9 % Sodium Chloride [Nasal Mist] 126 ml NS QID PRN 12/30/16 Albuterol Sulfate [Proair Respiclick] 90 mcg IH QID 12/30/16 Alprazolam [Xanax] 0.25 mg PO Q8H PRN 12/30/16 Amoxicillin [Amoxil] 500 mg PO BID 12/30/16 Aspirin [Oziel] 81 mg PO DAILY 12/30/16 Esomeprazole Magnesium [Nexium] 40 mg PO 717 12/30/16 Finasteride [Proscar] 5 mg PO DAILY 12/30/16 Furosemide [Lasix] 20 mg PO 714 12/30/16 Insulin Glargine,Hum.rec.anlog [Lantus Solostar] 25 unit SQ HS 12/30/16 Insulin Lispro [Humalog] See Protocol SQ CMEAL 12/30/16 Meropenem 2,000 mg IV Q12 12/30/16 Metoprolol Succinate [Toprol XL] 12.5 mg PO DAILY 12/30/16 Pentamidine Isethionate [Nebupent] 300 mg IH Q30D 12/30/16 Potassium Chloride [Klor-Con 10] 10 meq PO BID 12/30/16 Pregabalin [Lyrica] 100 mg PO TID 12/30/16 Psyllium Seed [Metamucil] 1 each PO 1100 PRN 12/30/16 Sertraline HCl [Zoloft] 100 mg PO DAILY 12/30/16 Simethicone [Gas-X] 80 mg PO QID PRN 12/30/16 Tamsulosin HCl [Flomax] 0.4 mg PO HS 12/30/16 Warfarin Sodium [Coumadin] 3 mg PO 1800 12/30/16 diphenhydrAMINE HCL [Benadryl] 50 mg PO NOW PRN 12/30/16 oxyCODONE HCL/ACETAMINOPHEN [Percocet 5-325 mg Tablet] 2 tab PO Q4 PRN 12/30/16 predniSONE [Deltasone] 40 mg PO QD 12/30/16 rOPINIRole HCL [Requip] 0.5 mg PO HS 12/30/16 Condition: Stable Disposition: 02 XFER SHT-TRM HOSP Decision to Admit: NO Decision Time: 12:15
== END 2017-04-08 12:45 | disposition short-term general hospital (02) ==
LOC: ED 07:52
DX: R06.00 Dyspnea, unspecified (principal); W19.XXXA Unspecified fall, initial encounter; Y93.9 Activity, unspecified; Y99.9 Unspecified external cause status; R52 Pain, unspecified; R15.9 Full incontinence of feces
CPT/HCPCS: 71010; 80053; 81002; 82550; 82553; 83880; 84484; 85025; 93005; A9270; J1815; J2185; J7060; 96360; 96372; 99284

== ENCOUNTER 2017-04-23 15:24 | Outpatient (CLI) | payer MEDICARE, OTHER ==
[2017-04-23 15:52] LABS: BASOPHILS % 0.6 (0.0-1.5); MEAN CORPUSCULAR HEMOGLOBIN 26.4 pg (28.0-34.0); MEAN CORPUSCULAR VOLUME 81.8 fl (80.0-100.0); MONOCYTES % 4.3 % (0.0-11.0); NEUTROPHILS # 5.8 # k/uL (1.4-7.7)
[2017-04-23 16:13] LABS: eGFR (African) > 60; eGFR (Non-African) 54
== END 2017-04-23 15:25 ==
LOC: OUT 15:24
PROVIDERS: ATTEND Internal Medicine
DX: T82.7XXA Infection and inflammatory reaction due to other cardiac and vascular devices, implants and grafts, initial encounter (principal); R53.81 Other malaise; R50.9 Fever, unspecified; Z79.01 Long term (current) use of anticoagulants
CPT/HCPCS: 36415; 80053; 83615; 85025; 85610; G0463

== ENCOUNTER 2017-04-30 17:49 | Outpatient (CLI) | payer MEDICARE, OTHER ==
[2017-04-30 18:15] LABS: BASOPHILS % 0.5 (0.0-1.5); EOSINOPHILS % 4.6 % (0.0-6.8); MEAN CORPUSCULAR HEMOGLOBIN 26.7 pg (28.0-34.0); MEAN CORPUSCULAR VOLUME 80.5 fl (80.0-100.0); MONOCYTES % 4.5 % (0.0-11.0)
[2017-04-30 18:33] LABS: eGFR (African) > 60; eGFR (Non-African) 50
== END 2017-04-30 17:59 ==
LOC: LAB 17:49
DX: I49.9 Cardiac arrhythmia, unspecified (principal); I25.810 Atherosclerosis of coronary artery bypass graft(s) without angina pectoris; I50.22 Chronic systolic (congestive) heart failure; I25.5 Ischemic cardiomyopathy; Z79.01 Long term (current) use of anticoagulants; Z95.811 Presence of heart assist device
CPT/HCPCS: 36415; 80053; 83615; 85025; 85610

== ENCOUNTER 2017-04-30 18:10 | Emergency (ER) | payer MEDICARE, OTHER ==
[2017-04-30] MEDS ORDERED: KETOROLAC TROMETHAMINE 30 MG/1ML VIAL ONE (20:54)
[2017-04-30] MEDS: KETOROLAC TROMETHAMINE 30 MG/1ML VIAL IVP ONE (21:00)
[2017-04-30] MEDS ORDERED: Lidocaine 1% 5ml(IM or SUTURE)(PAIN CLINIC) ONE (21:22)
[2017-04-30] MEDS: Lidocaine 1% 5ml(IM or SUTURE)(PAIN CLINIC) IJ ONE (21:45)
[2017-04-30] MEDS: oxyCODONE/ACETAMINOPHEN 5/325 TABLET PO ONE (21:45)
[2017-04-30 22:50] VITALS: BP 107/78
[2017-05-01 05:13] LABS: APPEARANCE,URINE CLEAR (CLEAR); COLOR,URINE AMBER (YELLOW); OCCULT BLOOD,URINE NEGATIVE (NEGATIVE)
[2017-05-01 05:14] LABS: UROBILINOGEN URINE 0.2 Eu (0.2-1.0)
== END 2017-04-30 22:13 ==
LOC: ED 18:10
DX: R10.30 Lower abdominal pain, unspecified (principal)
CPT/HCPCS: 81002; A9270; J1885; 96372; 99283

== ENCOUNTER 2017-05-07 14:58 | Outpatient (CLI) | payer MEDICARE, OTHER ==
[2017-05-07 15:22] LABS: BASOPHILS % 0.4 (0.0-1.5); EOSINOPHILS % 1.9 % (0.0-6.8); MEAN CORPUSCULAR VOLUME 80.4 fl (80.0-100.0); MONOCYTES % 3.9 % (0.0-11.0); NEUTROPHILS # 8.1 # k/uL (1.4-7.7)
[2017-05-07 15:37] LABS: eGFR (African) 49; eGFR (Non-African) 40
== END 2017-05-07 15:00 ==
LOC: LAB 14:58 → OUT 14:58 → LAB 15:00
PROVIDERS: ATTEND Internal Medicine
DX: T82.7XXA Infection and inflammatory reaction due to other cardiac and vascular devices, implants and grafts, initial encounter (principal); R53.81 Other malaise; R50.9 Fever, unspecified; Z79.01 Long term (current) use of anticoagulants
CPT/HCPCS: 36415; 80053; 83615; 85025; 85610; G0463

== ENCOUNTER 2017-05-10 15:58 | Emergency (ER) | payer MEDICARE, OTHER ==
[2017-05-10 16:59] LABS: BASOPHILS % 0.4 (0.0-1.5); EOSINOPHILS % 3.1 % (0.0-6.8); MEAN CORPUSCULAR HEMOGLOBIN 27.1 pg (28.0-34.0); MEAN CORPUSCULAR VOLUME 81.7 fl (80.0-100.0); MONOCYTES % 4.3 % (0.0-11.0); NEUTROPHILS # 3.9 # k/uL (1.4-7.7)
[2017-05-10 17:22] LABS: ANISOCYTOSIS 1+ (NEGATIVE); HYPOCHROMASIA 1+ (NEGATIVE)
[2017-05-10] MEDS ORDERED: 0.9 % SODIUM CHLORIDE 500 ML IV ONE (18:42)
--- NOTE | 2017-05-10 18:57 | ED Physician Documentation ---
GI Bleed - HISTORIAN Historian: patient - HPI Stated Complaint: GI Bleed Chief Complaint: GI Bleed Additional Information: maroon stools for over 1 month, today feels more weak Onset: days ago (30+) Timing: gradual onset Context: Hx of GERD, last upper and lower endoscopy 04/27 Severity: moderate Further Comments: no - Associated Symptoms Last Bowel Movement: 05/10/17 Description of Stools: maroon Abdominal Pain: mild Emesis Description: other (none) Description of Rectal Bleed: other (hx of hemorrhoids, but stools are maroon and painless). denies: bleeding w/o stools, bright red blood on paper, blood mixed w/ stool, blood streaks on stool, bloody diarrhea, rectal pain Other Related Symptoms: denies: nausea, vomiting, back pain, fainting, dizziness , light-headedness - ROS CONST: no problems SKIN/LYMPH: denies: leg swelling, rash, swollen glands, ankle swelling CVS/RESP: denies: chest pain, shortness of breath, cough GI/: denies: rectal intercourse, problems urinating, testicular pain, foreign body, genital pain EYES/ENT: denies: problems with vision, sore throat, nose bleed MS: none NEURO/PSYCH: other (weakness) - PAST HX Past History: diverticulitis, other (cad with implanted LVAD, restless legs syndrome, depression, anxiety, type 2 dm, gerd) Other History: cardiac disease, CHF, diabetes Type 2, hypertension Surgeries/Procedures: other (central line, LVAD) Immunizations: referred to PCP Allergies/Adverse Reactions: Allergies Allergy/AdvReac Type Severity Reaction Status Date / Time Penicillins Allergy Verified 05/10/17 16:15 Sulfa (Sulfonamide Allergy Verified 05/10/17 16:15 Antibiotics) Home Medications: Ambulatory Orders Medication Instructions Recorded 0.9 % Sodium Chloride [Nasal Mist] 126 ml NS QID PRN 12/30/16 Albuterol Sulfate [Proair 90 mcg IH QID 12/30/16 Respiclick] Alprazolam [Xanax] 0.25 mg PO Q8H PRN 12/30/16 Amoxicillin [Amoxil] 500 mg PO BID 12/30/16 Aspirin [Oziel] 81 mg PO DAILY 12/30/16 Esomeprazole Magnesium [Nexium] 40 mg PO 717 12/30/16 Finasteride [Proscar] 5 mg PO DAILY 12/30/16 Furosemide [Lasix] 20 mg PO 714 12/30/16 Insulin Glargine,Hum.rec.anlog 25 unit SQ HS 12/30/16 [Lantus Solostar] Insulin Lispro [Humalog] See Protocol SQ CMEAL 12/30/16 Meropenem 2,000 mg IV Q12 12/30/16 Metoprolol Succinate [Toprol XL] 12.5 mg PO DAILY 12/30/16 Pentamidine Isethionate [Nebupent] 300 mg IH Q30D 12/30/16 Potassium Chloride [Klor-Con 10] 10 meq PO BID 12/30/16 Pregabalin [Lyrica] 100 mg PO TID 12/30/16 Psyllium Seed [Metamucil] 1 each PO 1100 PRN 12/30/16 Sertraline HCl [Zoloft] 100 mg PO DAILY 12/30/16 Simethicone [Gas-X] 80 mg PO QID PRN 12/30/16 Tamsulosin HCl [Flomax] 0.4 mg PO HS 12/30/16 Warfarin Sodium [Coumadin] 3 mg PO 1800 12/30/16 diphenhydrAMINE HCL [Benadryl] 50 mg PO NOW PRN 12/30/16 oxyCODONE HCL/ACETAMINOPHEN 2 tab PO Q4 PRN 12/30/16 [Percocet 5-325 mg Tablet] predniSONE [Deltasone] 40 mg PO QD 12/30/16 rOPINIRole HCL [Requip] 0.5 mg PO HS 12/30/16 - SOCIAL HX Smoking History: non-smoker Alcohol Use: none Drug Use: none - FAMILY HX Family History: none - VITAL SIGNS Vital Signs: Vital Signs Temp Pulse Resp BP Pulse Ox 107/78 04/30/17 22:46 - REVIEWED ASSESSMENTS Nursing Assessment Reviewed: Yes Vitals Reviewed: Yes Progress - Results/Orders Results/Orders: cbc, cmp, ua, pt/ptt/inr, amylase, ct abdomen/pelvis ordered - Progress Progress: Pt.'s blood pressure initially 103/78, then dropped to 60 systollically. Pt. given bolus of 500 cc NS in ER. Critical Care Note - Critical Care Note Total Time (mins): 0 ED Results Lab/Radiology - Lab Results Lab Results: Lab Results 06/29/17 06/29/17 06/29/17 16:45 16:45 16:45 WBC 5.50 K/ul K/ul (4.00-12.00) RBC 1.73 M/ul L M/ul (3.90-5.20) Hgb 4.7 g/dL L* g/dL (12.0-18.0) Hct 14.1 % L % (37.0-53.0) MCV 81.7 fl fl (80.0-100.0) MCH 27.1 pg L pg (28.0-34.0) MCHC 0.0 g/dL L g/dL (30.0-36.0) RDW 22.8 % H % (11.3-14.3) Plt Count 88 K/mm3 L K/mm3 (130-400) Neut % (Auto) 71.3 % % (39.0-79.0) Lymph % (Auto) 19.3 % % (16.0-50.0) [place] % (Auto) 4.3 % % (0.0-11.0) Eos % (Auto) 3.1 % % (0.0-6.8) Baso % (Auto) 0.4 (0.0-1.5) Neut # (Auto) 3.9 # k/uL # k/uL (1.4-7.7) Lymph # (Auto) 1.1 # k/uL # k/uL (0.6-4.0) [place] # (Auto) 0.2 # k/uL # k/uL (0.0-0.9) Eos # (Auto) 0.2 # k/uL # k/uL (0.0-0.6) Baso # (Auto) 0.0 # k/uL # k/uL (0.0-0.5) Reactive Lymphs % 1.6 % % (0.0-5.0) Reactive Lymphs # 0.1 # k/uL # k/uL (0.0-0.8) Plt Morphology Comment Normal (NORMAL) Hypochromasia 1+ H (NEGATIVE) Anisocytosis 1+ H (NEGATIVE) RBC Morph Comment Abnormal H (NORMAL) PT 35.3 Seconds H Seconds (9.4-11.6) INR 3.32 H (0.9-1.2) APTT 42.3 Seconds H Seconds (24.5-32.8) Sodium 145 mmol/L mmol/L (136-145) Potassium 4.0 mmol/L mmol/L (3.5-5.0) Chloride 106 mmol/L mmol/L (98-110) Carbon Dioxide 37 mmol/L H mmol/L (20-32) BUN 31 mg/dL H mg/dL (10-26) Creatinine 1.6 mg/dL H mg/dL (0.4-1.5) Estimated Creat Clear 64 Est GFR ( Amer) 56 L (60 - ) Est GFR (Non-Af Amer) 46 L (60 - ) Glucose 145 mg/dL H mg/dL (70-99) Calcium 9.4 mg/dL mg/dL (8.5-10.5) Total Bilirubin 0.6 mg/dL mg/dL (0.2-1.2) AST 27 U/L U/L (0-41) ALT 14 U/L U/L (0-45) Alkaline Phosphatase 60 U/L U/L (46-116) Total Protein 5.7 g/dL L g/dL (6.0-8.5) Albumin 3.4 g/dL g/dL (3.0-5.5) Amylase 38 U/L U/L (20-104) - Radiology Radiology Impressions: ct abdomen negative for pooled blood, positive for diverticulosis, no diverticulitis - Orders Orders: ED Orders Category Date Time Status CT ABD & PELVIS W/O CON Stat Exams 05/10/17 Ordered AMYLASE Routine Lab 05/10/17 16:45 Completed CBC/PLATELET/DIFF Routine Lab 05/10/17 16:45 Completed CMP Routine Lab 05/10/17 16:45 Completed PT-INR Routine Lab 05/10/17 16:45 Completed PTT Routine Lab 05/10/17 16:45 Completed RBC/PLATELET MORPHOLOGY Routine Lab 05/10/17 16:45 Completed URINALYSIS Routine Lab 05/10/17 Ordered Abdominal Pain Physical Exam - Physical Exam General Appearance: alert, mild distress EENT: MARIA LUISA, no nystagmus, TM's nml, pale conjunctivae NECK: normal inspection, thyroid normal, supple RESPIRATORY: no resp distress, chest non-tender, breath sounds normal. No: wheezes, rales, rhonchi CVS: reg rate & rhythm, heart sounds normal, equal pulses ABDOMEN: soft, no organomegaly, normal bowel sounds, tenderness (left sided, lower abdomen, suprapubic) RECTAL: normal rectal tone, heme positive stool, other (visibly maroon stools) BACK: normal inspection, no CVA tenderness SKIN: pallor EXTREMITIES: non-tender, normal range of motion, no evidence of injury, no edema NEURO: oriented X3, CN's nml as tested, motor nml, sensation nml, mood/affect nml, cognition normal Vital Signs: Vital Signs Temp Pulse Resp BP Pulse Ox 107/78 04/30/17 22:46 Discharge Clincal Impression: GI bleed Qualifiers: GI bleed type/associated pathology: melena Qualified Code(s): K92.1 - Melena Anemia Qualifiers: Anemia type: other cause Other causes of anemia: acute posthemorrhagic Qualified Code(s): D62 - Acute posthemorrhagic anemia Referrals: Maricarmen Haider MD [Primary Care Provider] - 2 Days Home Medications: Ambulatory Orders 0.9 % Sodium Chloride [Nasal Mist] 126 ml NS QID PRN 12/30/16 Albuterol Sulfate [Proair Respiclick] 90 mcg IH QID 12/30/16 Alprazolam [Xanax] 0.25 mg PO Q8H PRN 12/30/16 Amoxicillin [Amoxil] 500 mg PO BID 12/30/16 Aspirin [Oziel] 81 mg PO DAILY 12/30/16 Esomeprazole Magnesium [Nexium] 40 mg PO 717 12/30/16 Finasteride [Proscar] 5 mg PO DAILY 12/30/16 Furosemide [Lasix] 20 mg PO 714 12/30/16 Insulin Glargine,Hum.rec.anlog [Lantus Solostar] 25 unit SQ HS 12/30/16 Insulin Lispro [Humalog] See Protocol SQ CMEAL 12/30/16 Meropenem 2,000 mg IV Q12 12/30/16 Metoprolol Succinate [Toprol XL] 12.5 mg PO DAILY 12/30/16 Pentamidine Isethionate [Nebupent] 300 mg IH Q30D 12/30/16 Potassium Chloride [Klor-Con 10] 10 meq PO BID 12/30/16 Pregabalin [Lyrica] 100 mg PO TID 12/30/16 Psyllium Seed [Metamucil] 1 each PO 1100 PRN 12/30/16 Sertraline HCl [Zoloft] 100 mg PO DAILY 12/30/16 Simethicone [Gas-X] 80 mg PO QID PRN 12/30/16 Tamsulosin HCl [Flomax] 0.4 mg PO HS 12/30/16 Warfarin Sodium [Coumadin] 3 mg PO 1800 12/30/16 diphenhydrAMINE HCL [Benadryl] 50 mg PO NOW PRN 12/30/16 oxyCODONE HCL/ACETAMINOPHEN [Percocet 5-325 mg Tablet] 2 tab PO Q4 PRN 12/30/16 predniSONE [Deltasone] 40 mg PO QD 12/30/16 rOPINIRole HCL [Requip] 0.5 mg PO HS 12/30/16 Comments: Case discussed with Dr. Elizabeth, transferred in stable condition to [facility] by ground EMS Condition: Stable Disposition: XFER SHT-TRM HOSP Decision to Admit: NO Decision Time: 18:30
[2017-05-10] MEDS: 0.9 % SODIUM CHLORIDE 500 ML IV ONE (19:00)
[2017-05-10] MEDS: HYDROmorphone HCL/PF 1 MG/ML DISP.SYRIN IVP ONE (20:55)
[2017-05-10 21:30] VITALS: BP 133/67
--- NOTE | 2017-05-11 05:34 | Diagnostic Imaging Report ---
PRANAY RAMOS~ [facility] [id number] Pending Sale To [facility] [address] [place], [place]. [address] ~ ~ ~ ~ Report Submission Date: May 10, 2017 5:17:50 PM CDT Patient ~ Study Name: ERVIN ROJAS ~ Date: May 10, 2017 4:45:41 PM CDT ~ Modality Type: CT\SR Gender: M ~ Description: CT ABD & PELVIS W/O CO : 52 ~ Institution: [facility] Physician: PRANAY RAMOS ~ ~ ~ ~ Examination: CT Abdomen/pelvis History: Hematochezia Comparison exams: None available Technique: CT Abdomen/pelvis without contrast protocol.~ Findings: Large implanted device within the upper abdomen extending superiorly to involve the anterior inferior cardiac margin: Correlate with surgical/ medical history. Liver, spleen, adrenal glands, kidneys, and pancreas are without irregularity.~ Gallstones is layering within the gallbladder. Kidneys and ureters are without suspicious calcifications. Abdominal aorta with mild peripheral atherosclerotic disease. Dilation infrarenal ~to 3.5 cm. Bowel without contrast limiting evaluation. Sigmoid diverticulitis - no adjacent inflammatory changes. No evidence for acute mesenteric inflammation or free air. Osseous structures demonstrate degenerative changes. Lung bases scarring and atelectasis. Impression: No evidence for acute inflammatory process or mass given technique. Sigmoid diverticulosis. No evidence for acute diverticulitis. Infrarenal aortic dilation to 3.5 cm. Gallstones. No adjacent inflammation. Given patient's symptoms, dedicated bowel imaging and GI consultation would be appropriate ~ Electronically signed on May 10, 2017 5:17:50 PM CDT by: Enrrique ANGELA
== END 2017-05-10 21:03 | disposition short-term general hospital (02) ==
LOC: ED 15:58
DX: K92.1 Melena (principal); D62 Acute posthemorrhagic anemia
CPT/HCPCS: 74176; 80053; 82150; 85025; 85610; 85730; 96361; 96374; 99284; J1170; J7060; S1016

== ENCOUNTER 2017-06-11 09:57 | Outpatient (CLI) | payer MEDICARE, OTHER ==
[2017-06-11 10:41] LABS: BASOPHILS % 0.6 (0.0-1.5); EOSINOPHILS % 4.2 % (0.0-6.8); MEAN CORPUSCULAR VOLUME 86.3 fl (80.0-100.0); MONOCYTES % 5.1 % (0.0-11.0); NEUTROPHILS # 5.6 # k/uL (1.4-7.7)
[2017-06-11 10:44] LABS: MEAN CORPUSCULAR HEMOGLOBIN 27.5 pg (28.0-34.0)
[2017-06-11 10:57] LABS: eGFR (African) 56; eGFR (Non-African) 46
[2017-06-11 11:15] LABS: HYPOCHROMASIA 1+ (NEGATIVE)
== END 2017-06-11 10:00 ==
LOC: OUT 09:57
PROVIDERS: ATTEND Internal Medicine
DX: T82.7XXA Infection and inflammatory reaction due to other cardiac and vascular devices, implants and grafts, initial encounter (principal); R53.81 Other malaise; R50.9 Fever, unspecified; Z79.01 Long term (current) use of anticoagulants
CPT/HCPCS: 36415; 80053; 83615; 85025; 85610; G0463

== ENCOUNTER 2017-07-03 13:53 | Outpatient (CLI) | payer MEDICARE, OTHER ==
[2017-07-03 14:19] LABS: BASOPHILS % 0.6 (0.0-1.5); EOSINOPHILS % 8.9 % (0.0-6.8); MEAN CORPUSCULAR HEMOGLOBIN 26.7 pg (28.0-34.0); MEAN CORPUSCULAR VOLUME 78.6 fl (80.0-100.0); MONOCYTES % 4.5 % (0.0-11.0); NEUTROPHILS # 6.9 # k/uL (1.4-7.7)
[2017-07-03 14:44] LABS: eGFR (African) > 60; eGFR (Non-African) 54
== END 2017-07-03 13:54 ==
LOC: OUT 13:53
PROVIDERS: ATTEND Internal Medicine
DX: T82.7XXA Infection and inflammatory reaction due to other cardiac and vascular devices, implants and grafts, initial encounter (principal); R53.81 Other malaise; R50.9 Fever, unspecified; Z79.01 Long term (current) use of anticoagulants
CPT/HCPCS: 36415; 80053; 83615; 85025; 85610; G0463

== ENCOUNTER 2017-07-09 14:13 | Outpatient (CLI) | payer MEDICARE, OTHER ==
[2017-07-09 14:42] LABS: BASOPHILS % 0.7 (0.0-1.5); EOSINOPHILS % 8.8 % (0.0-6.8); MEAN CORPUSCULAR HEMOGLOBIN 25.6 pg (28.0-34.0); MEAN CORPUSCULAR VOLUME 77.2 fl (80.0-100.0); MONOCYTES % 4.2 % (0.0-11.0); NEUTROPHILS # 6.5 # k/uL (1.4-7.7)
[2017-07-09 15:00] LABS: eGFR (African) 52; eGFR (Non-African) 43
== END 2017-07-09 14:14 ==
LOC: LAB 14:13
PROVIDERS: ATTEND Internal Medicine
DX: R53.81 Other malaise (principal); R50.9 Fever, unspecified; T82.7XXA Infection and inflammatory reaction due to other cardiac and vascular devices, implants and grafts, initial encounter; X58.XXXA Exposure to other specified factors, initial encounter; Y93.9 Activity, unspecified; Y99.9 Unspecified external cause status; Z79.01 Long term (current) use of anticoagulants
CPT/HCPCS: 36415; 80053; 83615; 85025; 85610

== ENCOUNTER 2017-07-11 16:32 | Outpatient (CLI) | payer MEDICARE, OTHER ==
[2017-07-11 16:38] LABS: BASOPHILS % 0.5 (0.0-1.5); MEAN CORPUSCULAR HEMOGLOBIN 24.9 pg (28.0-34.0); MEAN CORPUSCULAR VOLUME 75.7 fl (80.0-100.0); MONOCYTES % 3.9 % (0.0-11.0); NEUTROPHILS # 7.1 # k/uL (1.4-7.7)
== END 2017-07-11 16:33 ==
LOC: LAB 16:32
PROVIDERS: ATTEND Family Medicine
DX: D64.89 Other specified anemias (principal)
CPT/HCPCS: 36415; 85025

== ENCOUNTER 2017-07-17 15:57 | Outpatient (CLI) | payer MEDICARE, OTHER ==
[2017-07-17 16:15] LABS: BASOPHILS % 0.8 (0.0-1.5); EOSINOPHILS % 8.1 % (0.0-6.8); MEAN CORPUSCULAR HEMOGLOBIN 24.6 pg (28.0-34.0); MEAN CORPUSCULAR VOLUME 75.4 fl (80.0-100.0); MONOCYTES % 4.6 % (0.0-11.0); NEUTROPHILS # 7.7 # k/uL (1.4-7.7)
[2017-07-17 16:40] LABS: eGFR (African) 52; eGFR (Non-African) 43
== END 2017-07-17 16:00 ==
LOC: OUT 15:57
PROVIDERS: ATTEND Internal Medicine
DX: T82.7XXA Infection and inflammatory reaction due to other cardiac and vascular devices, implants and grafts, initial encounter (principal); R53.81 Other malaise; R50.9 Fever, unspecified; Z79.01 Long term (current) use of anticoagulants
CPT/HCPCS: 36415; 80053; 83615; 85025; 85610; G0463

== ENCOUNTER 2017-07-22 11:57 | Emergency (ER) | payer MEDICARE, OTHER ==
[2017-07-22] MEDS: IPRATROPIUM/ALBUTEROL SULFATE 3 ML AMPUL.NEB NEB ONE (12:05)
[2017-07-22] MEDS ORDERED: IPRATROPIUM/ALBUTEROL SULFATE 3 ML AMPUL.NEB NEB ONE (12:06)
--- NOTE | 2017-07-22 12:07 | ED Physician Documentation ---
General Adult - HISTORIAN Historian: patient, paramedics - HPI Stated Complaint: sob Chief Complaint: General Adult Onset: hours Timing: still present Severity: moderate Further Comments: yes (Pt is a 67 yo male with an LVAD (Heart Mate II) device and hx persistent infections with resistant organism. 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 Pt presents with sob. He does not c/o chest pain. Pt is at times confused and unable to remember details of his PMHx.) - ROS CONST: weakness EYES/ENT: none CVS/RESP: shortness of breath GI/: none MS/SKIN/LYMPH: none NEURO/PSYCH: other (weakness, confusion) - PAST HX Past History: other (COPD, LVAD cardiac assist device Heart Mate II, chronic infections.) Other History: other (cardiac assist device) Allergies/Adverse Reactions: Allergies Allergy/AdvReac Type Severity Reaction Status Date / Time Penicillins Allergy Verified 05/10/17 16:15 Sulfa (Sulfonamide Allergy Verified 05/10/17 16:15 Antibiotics) Home Medications: Ambulatory Orders Medication Instructions Recorded 0.9 % Sodium Chloride [Nasal Mist] 126 ml NS QID PRN 12/30/16 Albuterol Sulfate [Proair 90 mcg IH QID 12/30/16 Respiclick] Alprazolam [Xanax] 0.25 mg PO Q8H PRN 12/30/16 Amoxicillin [Amoxil] 500 mg PO BID 12/30/16 Aspirin [Oziel] 81 mg PO DAILY 12/30/16 Esomeprazole Magnesium [Nexium] 40 mg PO 717 12/30/16 Finasteride [Proscar] 5 mg PO DAILY 12/30/16 Furosemide [Lasix] 20 mg PO 714 12/30/16 Insulin Glargine,Hum.rec.anlog 25 unit SQ HS 12/30/16 [Lantus Solostar] Insulin Lispro [Humalog] See Protocol SQ CMEAL 12/30/16 Meropenem 2,000 mg IV Q12 12/30/16 Metoprolol Succinate [Toprol XL] 12.5 mg PO DAILY 12/30/16 Pentamidine Isethionate [Nebupent] 300 mg IH Q30D 12/30/16 Potassium Chloride [Klor-Con 10] 10 meq PO BID 12/30/16 Pregabalin [Lyrica] 100 mg PO TID 12/30/16 Psyllium Seed [Metamucil] 1 each PO 1100 PRN 12/30/16 Sertraline HCl [Zoloft] 100 mg PO DAILY 12/30/16 Simethicone [Gas-X] 80 mg PO QID PRN 12/30/16 Tamsulosin HCl [Flomax] 0.4 mg PO HS 12/30/16 Warfarin Sodium [Coumadin] 3 mg PO 1800 12/30/16 diphenhydrAMINE HCL [Benadryl] 50 mg PO NOW PRN 12/30/16 oxyCODONE HCL/ACETAMINOPHEN 2 tab PO Q4 PRN 12/30/16 [Percocet 5-325 mg Tablet] predniSONE [Deltasone] 40 mg PO QD 12/30/16 rOPINIRole HCL [Requip] 0.5 mg PO HS 12/30/16 - SOCIAL HX Smoking History: quit greater than 1 year - FAMILY HX Family History: No - VITAL SIGNS Vital Signs: Vital Signs Temp Pulse Resp BP Pulse Ox 133/67 05/10/17 21:28 - REVIEWED ASSESSMENTS Nursing Assessment Reviewed: Yes Vitals Reviewed: Yes Progress - Progress Progress: CXR: Examination of the chest in single portable AP view 07/22/2017 1216 hours with comparison to examination of 04/08/2017 demonstrates postoperative changes with multiple sternotomy wires. A transvenous pacemaker and central venous catheter are unchanged. There is artifact superimposing the left lower chest consistent with left ventricular assist device. There are bilateral infiltrates worse on the left with probable superimposed congestion. Haziness in the right base suggests right effusion. Duoneb HFN Lasix 40 mg IV NS IVF @ KVO Transfer to [facility], Dr. Marie. ED Results Lab/Radiology - Orders Orders: ED Orders Category Date Time Status Ipratropium/Albuterol Sulfate [Duoneb] Med 07/22/17 12:05 Discontinued 3 ml NEB NOW ONE General Adult Physical Exam - PHYSICAL EXAM GENERAL APPEARANCE: moderate distress EENT: pharynx normal NECK: normal inspection, supple RESPIRATORY: wheezes, rales, other (distant lung sounds) CVS: reg rate & rhythm, other (distant heart sounds) ABDOMEN: soft, no organomegaly, normal bowel sounds BACK: normal inspection, no CVA tenderness SKIN: pallor EXTREMITIES: normal range of motion, no evidence of injury NEURO: motor nml, sensation nml, other (confused) Discharge Clincal Impression: Anemia, LVAD (left ventricular assist device) present, 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 Pneumonia Qualifiers: Pneumonia type: due to unspecified organism Laterality: bilateral Lung location : unspecified part of lung Qualified Code(s): J18.9 - Pneumonia, unspecified organism Referrals: Maricarmen Haider MD [Primary Care Provider] - Home Medications: Ambulatory Orders 0.9 % Sodium Chloride [Nasal Mist] 126 ml NS QID PRN 12/30/16 Albuterol Sulfate [Proair Respiclick] 90 mcg IH QID 12/30/16 Alprazolam [Xanax] 0.25 mg PO Q8H PRN 12/30/16 Amoxicillin [Amoxil] 500 mg PO BID 12/30/16 Aspirin [Oziel] 81 mg PO DAILY 12/30/16 Esomeprazole Magnesium [Nexium] 40 mg PO 717 12/30/16 Finasteride [Proscar] 5 mg PO DAILY 12/30/16 Furosemide [Lasix] 20 mg PO 714 12/30/16 Insulin Glargine,Hum.rec.anlog [Lantus Solostar] 25 unit SQ HS 12/30/16 Insulin Lispro [Humalog] See Protocol SQ CMEAL 12/30/16 Meropenem 2,000 mg IV Q12 12/30/16 Metoprolol Succinate [Toprol XL] 12.5 mg PO DAILY 12/30/16 Pentamidine Isethionate [Nebupent] 300 mg IH Q30D 12/30/16 Potassium Chloride [Klor-Con 10] 10 meq PO BID 12/30/16 Pregabalin [Lyrica] 100 mg PO TID 12/30/16 Psyllium Seed [Metamucil] 1 each PO 1100 PRN 12/30/16 Sertraline HCl [Zoloft] 100 mg PO DAILY 12/30/16 Simethicone [Gas-X] 80 mg PO QID PRN 12/30/16 Tamsulosin HCl [Flomax] 0.4 mg PO HS 12/30/16 Warfarin Sodium [Coumadin] 3 mg PO 1800 12/30/16 diphenhydrAMINE HCL [Benadryl] 50 mg PO NOW PRN 12/30/16 oxyCODONE HCL/ACETAMINOPHEN [Percocet 5-325 mg Tablet] 2 tab PO Q4 PRN 12/30/16 predniSONE [Deltasone] 40 mg PO QD 12/30/16 rOPINIRole HCL [Requip] 0.5 mg PO HS 12/30/16 Condition: Fair Disposition: 02 XFER [facility] Decision to Admit: NO Decision Time: 13:06
[2017-07-22 12:43] LABS: BASOPHILS % 0.5 (0.0-1.5); EOSINOPHILS % 2.4 % (0.0-6.8); MEAN CORPUSCULAR HEMOGLOBIN 22.9 pg (28.0-34.0); MEAN CORPUSCULAR VOLUME 76.8 fl (80.0-100.0); MONOCYTES % 4.2 % (0.0-11.0); NEUTROPHILS # 6.2 # k/uL (1.4-7.7)
[2017-07-22 13:03] LABS: eGFR (African) 49; eGFR (Non-African) 40
[2017-07-22] MEDS ORDERED: FUROSEMIDE 40 MG/4 ML VIAL ONE (13:13)
[2017-07-22] MEDS ORDERED: 0.9 % SODIUM CHLORIDE 1,000 ML IV ONE (13:14)
[2017-07-22] MEDS: FUROSEMIDE 40 MG/4 ML VIAL IVP ONE (13:15)
--- NOTE | 2017-07-22 13:21 | Diagnostic Imaging Report ---
[facility] [address] [facility].[address] [address] Report Submission Date: Jul 22, 2017 12:35:27 PM CDT Patient Study Name: ERVIN ROJAS Date: Jul 22, 2017 12:16:19 PM CDT Modality Type: CR Gender: M Description: CHEST : 52 Institution: [facility] Physician: LUCAS VARGAS - BARB Chest - one-view Clinical history: Shortness of breath. Findings: Examination of the chest in single portable AP view 07/22/2017 1216 hours with comparison to examination of 04/08/2017 demonstrates postoperative changes with multiple sternotomy wires. A transvenous pacemaker and central venous catheter are unchanged. There is artifact superimposing the left lower chest consistent with left ventricular assist device. There are bilateral infiltrates worse on the left with probable superimposed congestion. Haziness in the right base suggests right effusion. Impression: 1. Postoperative changes. 2. Infiltrates and probable superimposed congestion. 3. No significant change since 04/08/2017. Electronically signed on Jul 22, 2017 12:35:27 PM CDT by: Blaze ANGELA
[2017-07-22 15:51] VITALS: BP 117/80
== END 2017-07-22 14:00 | disposition short-term general hospital (02) ==
LOC: ED 11:57
DX: J18.9 Pneumonia, unspecified organism (principal); D64.9 Anemia, unspecified; Z95.0 Presence of cardiac pacemaker; Z16.30 Resistance to unspecified antimicrobial drugs
CPT/HCPCS: 71010; 80053; 82550; 83880; 84484; 85025; 85610; J1940; J7030; 96361; 96374; 96376; 99284

== ENCOUNTER 2017-08-08 21:08 | Emergency (ER) | payer MEDICARE, OTHER ==
[2017-08-08] MEDS: ORPHENADRINE CITRATE 60 MG/2ML IM ONE (22:15)
[2017-08-08] MEDS: KETOROLAC TROMETHAMINE 60 MG/2 ML VIAL IM ONE (22:16)
[2017-08-08] MEDS: HYDROcodone /APAP 5/325 1 EACH TABLET PO ONE (22:17)
--- NOTE | 2017-08-08 22:27 | ED Physician Documentation ---
Low Back Pain - HISTORIAN Historian: patient, spouse - HPI Stated Complaint: back pain Chief Complaint: Low Back Pain/ Injury Additional Information: PT HERE via ems c/o acute exaberation chronic back pain. he has percocet and muscle relaxers at home but has not taken any since early am accd to at home. this pt has many illnesses but according to nursing staff and per phone he is at baseline. he is very poor historian but again is at baseline according to nursing staff. he lives at home w/. after review of pmh and exam we are going to give him pain meds and muscle relaxers and send him History: history of chronic pain:, neck pain, back pain Onset: days ago (1-2) Duration: continues in ED Recent Injury: No Context: denies: lifting, turning, bending, fall, near-fall, trauma Severity: mild, moderate (accd to pt) Quality: dull, similar- prior back pain Associated Symptoms: denies: fever, chills, sweating, constipation Worsened By:: other ('just hurts' ASK PT WHY HE DID NOT TAKE HIS PERCOCET. HE STATED JUST DIDNT THINKK OF IT. ACCORDING TO NURSING STAFF THIS IS JUST BASE LINE FOR THIS PT. we called his - she will help him remember. he denies other acute c/o) - ROS CONST: other (as usual) CVS/RESP: denies: chest pain, shortness of breath EYES/ENT: denies: problems with vision MS/SKIN/LYMPH: calf pain (pt states he always has exab of leg pain when his back hurts), back pain Neuro/Psych: other (poor historian) GI/: denies: abdominal pain - PAST HX Past History: other (LVAD CHRONIC NECK AND BACKK PAIN HAS CHRONIC SEPSIS BUT REPORTEDLY HE VOLUNTARILY STOPPED HIS DAILY INJECTIONS OF ANTIBIOTICS. COPD) Allergies/Adverse Reactions: Allergies Allergy/AdvReac Type Severity Reaction Status Date / Time Penicillins Allergy Verified 08/08/17 21:20 Sulfa (Sulfonamide Allergy Verified 08/08/17 21:20 Antibiotics) Home Medications: Ambulatory Orders Medication Instructions Recorded 0.9 % Sodium Chloride [Nasal Mist] 126 ml NS QID PRN 12/30/16 Albuterol Sulfate [Proair 90 mcg IH QID 12/30/16 Respiclick] Alprazolam [Xanax] 0.25 mg PO Q8H PRN 12/30/16 Aspirin [Oziel] 81 mg PO DAILY 12/30/16 Esomeprazole Magnesium [Nexium] 40 mg PO 717 12/30/16 Finasteride [Proscar] 5 mg PO DAILY 12/30/16 Furosemide [Lasix] 20 mg PO 714 12/30/16 Insulin Glargine,Hum.rec.anlog 25 unit SQ HS 12/30/16 [Lantus Solostar] Insulin Lispro [Humalog] See Protocol SQ CMEAL 12/30/16 Meropenem 2,000 mg IV Q12 12/30/16 Metoprolol Succinate [Toprol XL] 12.5 mg PO DAILY 12/30/16 Pentamidine Isethionate [Nebupent] 300 mg IH Q30D 12/30/16 Potassium Chloride [Klor-Con 10] 10 meq PO BID 12/30/16 Pregabalin [Lyrica] 100 mg PO TID 12/30/16 Psyllium Seed [Metamucil] 1 each PO 1100 PRN 12/30/16 Sertraline HCl [Zoloft] 100 mg PO DAILY 12/30/16 Simethicone [Gas-X] 80 mg PO QID PRN 12/30/16 Tamsulosin HCl [Flomax] 0.4 mg PO HS 12/30/16 Warfarin Sodium [Coumadin] 3 mg PO 1800 12/30/16 diphenhydrAMINE HCL [Benadryl] 50 mg PO NOW PRN 12/30/16 oxyCODONE HCL/ACETAMINOPHEN 2 tab PO Q4 PRN 12/30/16 [Percocet 5-325 mg Tablet] predniSONE [Deltasone] 40 mg PO QD 12/30/16 rOPINIRole HCL [Requip] 0.5 mg PO HS 12/30/16 - SOCIAL HX Smoking History: non-smoker Alcohol Use: none Drug Use: none - FAMILY HX Family History: no significant history - VITAL SIGNS Vital Signs: Vital Signs Temp Pulse Resp BP Pulse Ox 98.0 F 71 16 117/70 95 08/08/17 21:10 08/08/17 21:10 08/08/17 21:10 08/08/17 21:10 08/08/17 21:10 - REVIEWED ASSESSMENTS Nursing Assessment Reviewed: Yes Vitals Reviewed: Yes ED Results Lab/Radiology - Orders Orders: ED Orders Category Date Time Status Chem Sticks Med 08/08/17 21:40 Ordered 1 each MC CHEMQ HYDROcodone /APAP 5/325 [[place] 5/325] Med 08/08/17 22:09 Discontinued 1 each PO NOW ONE Ketorolac Tromethamine [Toradol] Med 08/08/17 22:08 Discontinued 60 mg IM NOW ONE Orphenadrine Citrate [Norflex] Med 08/08/17 22:07 Discontinued 60 mg IM NOW ONE Low Back Pain/Injury - Physical Exam General Appearance: mild distress, moderate distress EENT: eye inspection normal Neck: No: non-tender (WEARS DEVICE FOR COMFORT PT REPORTS NECK OK TONITE) Resp/CVS: chest non-tender, breath sounds nml, heart sounds nml, reg. rate & rhythm, other (MILD BASAL CREPITANCE-PT DENIES SOB) Abdomen: non-tender Back: CVA tenderness. No: vertebral point-tendernes Neuro/Psych: depressed mood/affect, other (PT MORE ALERT SINCE INJECTION AND STATES FEELS BETTER. HE AGREES HE WILL TAKE THE PERCOCET AND MUSCLE RELAXANTS WHEN HE GETS HOME DIRECTED. HE ALSO STATES HE NOW HAS A RIDE HOME) Skin: warm/dry. No: cyanosis, diaphoresis Discharge Clincal Impression: ACUTE EXABERATION CH NECK/BACKK PAIN, ac exaberation ch back/neck pain, chronic sepsis, LVAD - CH HEART FAILURE Referrals: Maricarmen Haider MD [Primary Care Provider] - 2 Days Comments: ON PHONE STATES SHE DOES NOT DRIVE BUT CAN TAKE CARE OF HIM Condition: Fair Disposition: 01 HOME, SELF-CARE Decision to Admit: NO Decision Time: 22:53
[2017-08-08 23:29] VITALS: BP 122/89
== END 2017-08-08 22:50 | disposition home or self-care (01) ==
LOC: ED 21:08
DX: I50.9 Heart failure, unspecified (principal); M54.89 Other dorsalgia; A41.89 Other specified sepsis; G89.29 Other chronic pain; Z95.0 Presence of cardiac pacemaker
CPT/HCPCS: A9270; J1885; J2360; 96372; 99283

== ENCOUNTER 2017-08-27 15:12 | Outpatient (CLI) | payer MEDICARE, OTHER ==
[2017-08-27 15:34] LABS: MEAN CORPUSCULAR VOLUME 76.4 fl (80.0-100.0)
[2017-08-27 15:58] LABS: eGFR (African) 37; eGFR (Non-African) 30
[2017-08-27 16:04] LABS: EOSINOPHILS % 12 % (0-7); MONOCYTES % 2 % (0-11); SEGMENTED NEUTROPHILS % 73 % (39-79)
[2017-08-27 16:05] LABS: ANISOCYTOSIS 1+ (NEGATIVE); HYPOCHROMASIA 1+ (NEGATIVE)
[2017-08-27 16:08] LABS: MEAN CORPUSCULAR HEMOGLOBIN 23.8 pg (28.0-34.0)
== END 2017-08-27 15:13 ==
LOC: LAB 15:12
PROVIDERS: ATTEND Internal Medicine
DX: I25.5 Ischemic cardiomyopathy (principal); I50.22 Chronic systolic (congestive) heart failure; T82.7XXA Infection and inflammatory reaction due to other cardiac and vascular devices, implants and grafts, initial encounter; X58.XXXA Exposure to other specified factors, initial encounter; Y93.9 Activity, unspecified; Y99.9 Unspecified external cause status; Z79.01 Long term (current) use of anticoagulants
CPT/HCPCS: 36415; 80053; 83615; 85025; 85610

== ENCOUNTER 2017-08-28 10:58 | Outpatient (CLI) | payer MEDICARE, OTHER ==
[2017-08-28] MEDS ORDERED: diphenhydrAMINE HCL 25 MG TABLET PO ONE ×2 (11:34→16:43)
[2017-08-28] MEDS ORDERED: ACETAMINOPHEN 325 MG TABLET ONE ×2 (11:34→16:42)
[2017-08-28] MEDS ORDERED: 0.9 % SODIUM CHLORIDE 100 ML IV ONE ×2 (12:17→18:02)
[2017-08-28] MEDS ORDERED: SALINE FLUSH 10 ML DISP.SYRIN IVF ONE ×3 (12:28→22:28)
[2017-08-28] MEDS ORDERED: FUROSEMIDE 40 MG/4 ML VIAL ONE (16:42)
[2017-08-28] MEDS ORDERED: FUROSEMIDE 20 MG/2 ML VIAL ONE (22:26)
== END 2017-08-28 11:00 ==
LOC: OUT 10:58
PROVIDERS: ATTEND Family Medicine
DX: D64.9 Anemia, unspecified (principal)
CPT/HCPCS: 86885; 86900; 86901; 86920; J1940; Q0163; 36430; P9040

== ENCOUNTER 2017-09-04 14:53 | Outpatient (CLI) | payer MEDICARE, OTHER ==
[2017-09-04 15:37] LABS: BASOPHILS % 0.6 (0.0-1.5); EOSINOPHILS % 14.4 % (0.0-6.8); MEAN CORPUSCULAR HEMOGLOBIN 25.3 pg (28.0-34.0); MEAN CORPUSCULAR VOLUME 79.6 fl (80.0-100.0); MONOCYTES % 2.6 % (0.0-11.0); NEUTROPHILS # 4.8 # k/uL (1.4-7.7)
[2017-09-04 15:52] LABS: eGFR (African) 41; eGFR (Non-African) 34
== END 2017-09-04 15:00 ==
LOC: LAB 14:53
PROVIDERS: ATTEND Internal Medicine
DX: T82.7XXA Infection and inflammatory reaction due to other cardiac and vascular devices, implants and grafts, initial encounter (principal); R53.81 Other malaise; I50.22 Chronic systolic (congestive) heart failure; I25.5 Ischemic cardiomyopathy; Z79.01 Long term (current) use of anticoagulants
CPT/HCPCS: 36415; 80053; 83615; 85025; 85610; G0463

== ENCOUNTER 2017-09-08 01:58 | Emergency (ER) | payer MEDICARE, OTHER ==
--- NOTE | 2017-09-08 02:43 | ED Physician Documentation ---
General Adult - HISTORIAN Historian: patient - HPI Stated Complaint: can't get out of bed Chief Complaint: General Adult Additional Information: Cough x 2 days. Black diarrhea x 2 days. Has been falling and hurts all over. Last falls two days ago; hit left head and right shoulder. Can't get out of bed and can't walk. Too weak. Feels like he does when he needs a blood transfusion. Last took percocet yesterday afternoon. - ROS CONST: weakness - PAST HX Past History: other (LVAD; colonization) - SOCIAL HX Smoking History: non-smoker - FAMILY HX Family History: No - VITAL SIGNS Vital Signs: Vital Signs Temp Pulse Resp BP Pulse Ox 122/89 08/08/17 22:50 - REVIEWED ASSESSMENTS Nursing Assessment Reviewed: Yes Vitals Reviewed: Yes <ANUSHA BALLESTEROS - Last Filed: 09/08/17 06:50> - PAST HX Past History: other (LVAD; CAD, Postinflammatory pulmonary fibrosis, sleep apnea , T2DM) Surgeries/Procedures: other (Arthroscopy knee, Arthroscopy shoulder, Implantable defibrillator, Left ventricular Assisst Device) - SOCIAL HX Alcohol Use: none Drug Use: none - VITAL SIGNS Vital Signs: Vital Signs Temp Pulse Resp BP Pulse Ox 98.5 F 71 18 97/54 100 09/08/17 01:59 09/08/17 01:59 09/08/17 01:59 09/08/17 01:59 09/08/17 01:59 <Ervin Wright - Last Filed: 09/08/17 08:09> - PAST HX Allergies/Adverse Reactions: Allergies Allergy/AdvReac Type Severity Reaction Status Date / Time Penicillins Allergy Verified 09/08/17 02:47 Sulfa (Sulfonamide Allergy Verified 09/08/17 02:47 Antibiotics) Home Medications: Ambulatory Orders Medication Instructions Recorded 0.9 % Sodium Chloride [Nasal Mist] 126 ml NS QID PRN 12/30/16 Albuterol Sulfate [Proair 90 mcg IH QID 12/30/16 Respiclick] Alprazolam [Xanax] 0.25 mg PO Q8H PRN 12/30/16 Aspirin [Oziel] 81 mg PO DAILY 12/30/16 Esomeprazole Magnesium [Nexium] 40 mg PO 717 12/30/16 Finasteride [Proscar] 5 mg PO DAILY 12/30/16 Furosemide [Lasix] 20 mg PO 714 12/30/16 Insulin Glargine,Hum.rec.anlog 25 unit SQ HS 12/30/16 [Lantus Solostar] Insulin Lispro [Humalog] See Protocol SQ CMEAL 12/30/16 Meropenem 2,000 mg IV Q12 12/30/16 Metoprolol Succinate [Toprol XL] 12.5 mg PO DAILY 12/30/16 Pentamidine Isethionate [Nebupent] 300 mg IH Q30D 12/30/16 Potassium Chloride [Klor-Con 10] 10 meq PO BID 12/30/16 Psyllium Seed [Metamucil] 1 each PO 1100 PRN 12/30/16 Sertraline HCl [Zoloft] 100 mg PO DAILY 12/30/16 Simethicone [Gas-X] 80 mg PO QID PRN 12/30/16 Tamsulosin HCl [Flomax] 0.4 mg PO HS 12/30/16 Warfarin Sodium [Coumadin] 3 mg PO 1800 12/30/16 diphenhydrAMINE HCL [Benadryl] 50 mg PO NOW PRN 12/30/16 oxyCODONE HCL/ACETAMINOPHEN 2 tab PO Q4 PRN 12/30/16 [Percocet 5-325 mg Tablet] predniSONE [Deltasone] 40 mg PO QD 12/30/16 rOPINIRole HCL [Requip] 0.5 mg PO HS 12/30/16 Progress - Progress Progress: Study Name: ERVIN ROJAS Date: Sep 08, 2017 3:22:24 AM CDT Modality Type: CT\SR Gender: M Description: CT BRAIN W/O CONTRAST : 52 Institution: [facility] Physician: ANUSHA BALLESTEROS - BARB Computed tomography of the head without contrast History: Head injury 2 days ago after fall Findings: Transverse brain sections are obtained without contrast revealing minimal left parietal subarachnoid hemorrhage and mild brain atrophy. Pozo white differentiation is intact. The skull is intact. Impression: Brain atrophy and minimal left parietal subarachnoid hemorrhage. Discussed with Anusha Ballesteros at 0339 [employer]. Electronically signed on Sep 08, 2017 3:40:12 AM CDT by: Abraham Mcgarry HGB 4.4, black tarry stool, guaiac positive. 0339, Call from radiologist; pt has small left parietal sub arachnoid bleed. 034, spoke with Dr. Brown at [facility] who accepts pt for admit there. He will start the process for transportation. 06, spoke with Dr. Brown. Reviewed pt's CXR and Head CT findings. First unit of blood beginning now with pre med Benadryl 25 mg po and tylenol 650 mg po. [facility] to be her at approximately 0800. [phone], care to Dr. Wright <ANUSHA BALLESTEROS - Last Filed: 09/08/17 06:50> ED Results Lab/Radiology - Orders Orders: ED Orders Category Date Time Status CT BRAIN W/O CONTRAST Stat Exams 09/08/17 Ordered CBC/PLATELET/DIFF Routine Lab 09/08/17 02:37 Received CMP [CMP] Routine Lab 09/08/17 02:37 Received PT-INR Routine Lab 09/08/17 Ordered <ANUSHA BALLESTEROS - Last Filed: 09/08/17 06:50> - Lab Results Lab Results: Lab Results 09/08/17 09/08/17 09/08/17 02:42 02:37 02:37 WBC 4.30 K/ul K/ul (4.00-12.00) RBC 1.73 M/ul L M/ul (3.90-5.20) Hgb 4.4 g/dL L* g/dL (12.0-18.0) Hct 14.0 % L % (37.0-53.0) MCV 80.8 fl fl (80.0-100.0) MCH 25.4 pg L pg (28.0-34.0) MCHC 0.0 g/dL L g/dL (30.0-36.0) RDW 21.3 % H % (11.3-14.3) Plt Count 106 K/mm3 L K/mm3 (130-400) Neut % (Auto) 76.7 % % (39.0-79.0) Lymph % (Auto) 12.0 % L % (16.0-50.0) [place] % (Auto) 3.2 % % (0.0-11.0) Eos % (Auto) 6.8 % % (0.0-6.8) Baso % (Auto) 0.4 (0.0-1.5) Neut # (Auto) 3.3 # k/uL # k/uL (1.4-7.7) Lymph # (Auto) 0.5 # k/uL L # k/uL (0.6-4.0) [place] # (Auto) 0.1 # k/uL # k/uL (0.0-0.9) Eos # (Auto) 0.3 # k/uL # k/uL (0.0-0.6) Baso # (Auto) 0.0 # k/uL # k/uL (0.0-0.5) Reactive Lymphs % 0.9 % % (0.0-5.0) Reactive Lymphs # 0.0 # k/uL # k/uL (0.0-0.8) PT 16.5 Seconds H Seconds (9.4-11.6) INR 1.56 H (0.9-1.2) Sodium 136 mmol/L L mmol/L (137-145) Potassium 4.4 mmol/L mmol/L (3.5-5.1) Chloride 98 mmol/L mmol/L (98-107) Carbon Dioxide 32 mmol/L H mmol/L (22-30) BUN 41 mg/dL H mg/dL (9-20) Creatinine 1.90 mg/dL H mg/dL (0.66-1.25) Estimated Creat Clear 46 Est GFR ( Amer) 46 L (60 - ) Est GFR (Non-Af Amer) 38 L (60 - ) Glucose 119 mg/dL H mg/dL (74-106) Calcium 8.4 mg/dL mg/dL (8.4-10.2) Total Bilirubin 0.5 mg/dL mg/dL (0.2-1.3) AST 22 U/L U/L (15-46) ALT 22 U/L U/L (13-69) Alkaline Phosphatase 92 U/L U/L (38-126) Total Protein 6.8 g/dL g/dL (6.3-8.2) Albumin 3.0 g/dL L g/dL (3.5-5.0) - Orders Orders: ED Orders Category Date Time Status Administer PreMed .PRN Care 09/08/17 03:04 Active Blood [Administer blood products] NOW Care 09/08/17 03:03 Active CHEST 1 VIEW [RAD] Stat Exams 09/08/[address] BRAIN W/O CONTRAST Stat Exams 09/08/17 Completed CBC/PLATELET/DIFF Routine Lab 09/08/17 02:37 Completed CMP [CMP] Routine Lab 09/08/17 02:37 Completed PT-INR Routine Lab 09/08/17 02:42 Completed TYPE AND SCREEN Stat Lab 09/08/17 Ordered 0.9 % Sodium Chloride [Normal Saline] 1,000 ml Med 09/08/17 06:00 Ordered IV Q10H Acetaminophen [Tylenol] Med 09/08/17 05:55 Discontinued 650 mg PO NOW ONE Alprazolam [Xanax] Med 09/08/17 07:28 Discontinued 0.5 mg PO .STK-MED ONE Alprazolam [Xanax] Med 09/08/17 07:29 Discontinued 0.5 mg PO NOW ONE Ketorolac Tromethamine [Toradol] Med 09/08/17 04:24 Discontinued 30 mg IVP NOW ONE Ondansetron HCl/Pf [Zofran 4 mg/2 ml] Med 09/08/17 05:30 Discontinued 4 mg IVP NOW ONE diphenhydrAMINE HCL [Benadryl] Med 09/08/17 05:56 Discontinued 25 mg PO NOW ONE <Ervin Wright - Last Filed: 09/08/17 08:09> General Adult Physical Exam - PHYSICAL EXAM GENERAL APPEARANCE: mild distress EENT: ENT inspection normal NECK: supple RESPIRATORY: no resp distress, breath sounds normal ABDOMEN: soft, normal bowel sounds RECTAL: deferred BACK: no CVA tenderness SKIN: warm/dry, normal color EXTREMITIES: no evidence of injury, no edema NEURO: CN's nml as tested, motor nml, sensation nml, other (appears tired) <ANUSHA BALLESTEROS - Last Filed: 09/08/17 06:50> - PHYSICAL EXAM EENT: eye inspection normal, TM's nml. No: pharyngeal erythema RESPIRATORY: No: wheezes, rales, rhonchi CVS: reg rate & rhythm, heart sounds normal NEURO: mood/affect nml, cognition normal <Ervin Wright - Last Filed: 09/08/17 08:09> Discharge <ANUSHA BALLESTEROS - Last Filed: 09/08/17 06:50> Decision to Admit: [id number] Date of Decison to Admit: 09/08/17 Decision Time: 07:56 <Ervin Wright - Last Filed: 09/08/17 08:09> Clincal Impression: Anemia Qualifiers: Anemia type: other cause Other causes of anemia: other cause, not classified Qualified Code(s): D64.89 - Other specified anemias GI bleed Qualifiers: GI bleed type/associated pathology: melena Qualified Code(s): K92.1 - Melena Subarachnoid hemorrhage following injury Qualifiers: Encounter type: initial encounter Loss of consciousness presence/duration: without LOC Qualified Code(s): S06.6X0A - Traumatic subarachnoid hemorrhage without loss of consciousness, initial encounter Referrals: Maricarmen Haider MD [Primary Care Provider] - 2 Days Condition: Critical Disposition: 02 XFER [facility]
[2017-09-08 02:55] LABS: BASOPHILS % 0.4 (0.0-1.5); EOSINOPHILS % 6.8 % (0.0-6.8); MONOCYTES % 3.2 % (0.0-11.0); NEUTROPHILS # 3.3 # k/uL (1.4-7.7)
[2017-09-08 02:59] LABS: MEAN CORPUSCULAR VOLUME 80.8 fl (80.0-100.0)
[2017-09-08 04:20] LABS: MEAN CORPUSCULAR HEMOGLOBIN 25.4 pg (28.0-34.0)
[2017-09-08] MEDS ORDERED: KETOROLAC TROMETHAMINE 30 MG/1ML VIAL IVP ONE (04:24)
[2017-09-08] MEDS ORDERED: ONDANSETRON HCL/PF 4 MG/ 2ML VIAL IVP ONE (05:30)
[2017-09-08] MEDS ORDERED: ACETAMINOPHEN 325 MG TABLET PO ONE (05:55)
[2017-09-08] MEDS ORDERED: diphenhydrAMINE HCL 25 MG TABLET PO ONE (05:56)
[2017-09-08] MEDS ORDERED: 0.9 % SODIUM CHLORIDE 1,000 ML IV SCH (06:00)
--- NOTE | 2017-09-08 06:33 | Diagnostic Imaging Report ---
PANKAJ BALLESTEROS - BARB [facility] [address] [facility].[address] [address] Report Submission Date: Sep 08, 2017 5:10:00 AM CDT Patient Study Name: ERVIN ROJAS Date: Sep 08, 2017 5:02:30 AM CDT Modality Type: CR Gender: M Description: CHEST : 52 Institution: [facility] Physician: PANKAJ BALLESTEROS - BARB Chest - one-view Clinical history: New cough. Findings: Examination of the chest in single portable AP view 09/08/2017 0502 hours with comparison to examination of 07/22/2017 demonstrates decreased congestion with residual. There is right basilar infiltrate or atelectasis with right effusion. Cardiac silhouette is enlarged. Multiple sternotomy wires are again seen. Right central venous catheter is unchanged. Metallic structure superimposes left upper quadrant suggesting left ventricular assist device. Impression: 1. Decreased congestion with residual. 2. Right basilar infiltrate or atelectasis with right effusion. 3. Otherwise no significant change. Electronically signed on Sep 08, 2017 5:10:00 AM CDT by: Blaze ANGELA
--- NOTE | 2017-09-08 06:34 | Diagnostic Imaging Report ---
ANUSHA BALLESTEROS [facility] [address] [facility] [address] [address] Report Submission Date: Sep 08, 2017 3:40:12 AM CDT Patient Study Name: ERVIN ROJAS Date: Sep 08, 2017 3:22:24 AM CDT Modality Type: CT\SR Gender: M Description: CT BRAIN W/O CONTRAST : 52 Institution: [facility] Physician: ANUSHA BALLESTEROS Computed tomography of the head without contrast History: Head injury 2 days ago after fall Findings: Transverse brain sections are obtained without contrast revealing minimal left parietal subarachnoid hemorrhage and mild brain atrophy. Pozo white differentiation is intact. The skull is intact. Impression: Brain atrophy and minimal left parietal subarachnoid hemorrhage. Discussed with Anusha Ballesteros at 0[address] [employer]. Electronically signed on Sep 08, 2017 3:40:12 AM CDT by: Abraham ANGELA
[2017-09-08] MEDS ORDERED: ALPRAZOLAM 0.5 MG TABLET PO ONE ×2 (07:28→07:29)
[2017-09-08 08:19] VITALS: BP 80/60
== END 2017-09-08 08:05 | disposition short-term general hospital (02) ==
LOC: ED 01:58
DX: D64.89 Other specified anemias (principal); K92.1 Melena
CPT/HCPCS: 70450; 71010; 80053; 85025; 85610; 86885; 86900; 86901; 86920; J1885; J7030; Q0163; 96361; 96374; 96375; 99284; P9040

== ENCOUNTER 2017-10-22 16:11 | Outpatient (CLI) | payer MEDICARE, OTHER ==
[2017-10-22 17:24] LABS: BASOPHILS % 0.9 (0.0-1.5); EOSINOPHILS % 13.9 % (0.0-6.8); MEAN CORPUSCULAR HEMOGLOBIN 26.5 pg (28.0-34.0); MEAN CORPUSCULAR VOLUME 76.4 fl (80.0-100.0); MONOCYTES % 3.3 % (0.0-11.0); NEUTROPHILS # 4.5 # k/uL (1.4-7.7)
[2017-10-22 17:42] LABS: eGFR (African) > 60; eGFR (Non-African) 50
== END 2017-10-22 16:30 ==
LOC: LAB 16:11
PROVIDERS: ATTEND Internal Medicine
DX: I50.22 Chronic systolic (congestive) heart failure (principal); T82.7XXA Infection and inflammatory reaction due to other cardiac and vascular devices, implants and grafts, initial encounter; I25.5 Ischemic cardiomyopathy; Z79.01 Long term (current) use of anticoagulants
CPT/HCPCS: 36415; 80053; 83615; 85025; 85610

== ENCOUNTER 2017-11-19 16:51 | Outpatient (CLI) | payer MEDICARE, OTHER ==
[2017-11-19 17:26] LABS: EOSINOPHILS % 10.1 % (0.0-6.8); MEAN CORPUSCULAR HEMOGLOBIN 25.4 pg (28.0-34.0); MEAN CORPUSCULAR VOLUME 75.5 fl (80.0-100.0); MONOCYTES % 3.3 % (0.0-11.0); NEUTROPHILS # 5.4 # k/uL (1.4-7.7)
[2017-11-19 17:44] LABS: eGFR (African) 49; eGFR (Non-African) 40
[2017-11-19 22:11] LABS: IRON SERUM 38 ug/dL (59-158)
== END 2017-11-19 16:52 ==
LOC: LAB 16:51
PROVIDERS: ATTEND Internal Medicine
DX: K92.2 Gastrointestinal hemorrhage, unspecified (principal); I48.91 Unspecified atrial fibrillation; I50.22 Chronic systolic (congestive) heart failure; T82.7XXA Infection and inflammatory reaction due to other cardiac and vascular devices, implants and grafts, initial encounter; I25.5 Ischemic cardiomyopathy; Z79.01 Long term (current) use of anticoagulants; Z95.811 Presence of heart assist device
CPT/HCPCS: 36415; 80053; 82728; 83540; 83615; 85025

== ENCOUNTER 2017-12-04 14:04 | Outpatient (CLI) | payer MEDICARE, OTHER ==
[2017-12-04 14:31] LABS: MEAN CORPUSCULAR HEMOGLOBIN 25.8 pg (28.0-34.0); MEAN CORPUSCULAR VOLUME 76.8 fl (80.0-100.0)
[2017-12-04 14:56] LABS: eGFR (African) 41; eGFR (Non-African) 34
[2017-12-04 15:28] LABS: MONOCYTES % 1 % (0-11); SEGMENTED NEUTROPHILS % 64 % (39-79)
[2017-12-04 15:29] LABS: ANISOCYTOSIS 1+ (NEGATIVE); EOSINOPHILS % 14 % (0-7); HYPOCHROMASIA 1+ (NEGATIVE)
== END 2017-12-04 14:06 ==
LOC: LAB 14:04
PROVIDERS: ATTEND Colon & Rectal Surgery
DX: I50.22 Chronic systolic (congestive) heart failure (principal); T82.7XXA Infection and inflammatory reaction due to other cardiac and vascular devices, implants and grafts, initial encounter; I25.5 Ischemic cardiomyopathy; Z79.01 Long term (current) use of anticoagulants; I48.91 Unspecified atrial fibrillation; Z95.811 Presence of heart assist device
CPT/HCPCS: 36415; 80053; 83615; 85025; 85610

== ENCOUNTER 2017-12-25 14:59 | Outpatient (CLI) | payer MEDICARE, OTHER ==
[2017-12-25 15:21] LABS: EOSINOPHILS % 10.4 % (0.0-6.8); MEAN CORPUSCULAR HEMOGLOBIN 24.8 pg (28.0-34.0); MEAN CORPUSCULAR VOLUME 76.4 fl (80.0-100.0); MONOCYTES % 4.2 % (0.0-11.0); NEUTROPHILS # 5.3 # k/uL (1.4-7.7)
[2017-12-25 16:19] LABS: eGFR (African) 46; eGFR (Non-African) 38
== END 2017-12-25 15:00 ==
LOC: LAB 14:59
PROVIDERS: ATTEND Internal Medicine
DX: I50.22 Chronic systolic (congestive) heart failure (principal); T82.7XXA Infection and inflammatory reaction due to other cardiac and vascular devices, implants and grafts, initial encounter; I25.5 Ischemic cardiomyopathy; Z79.01 Long term (current) use of anticoagulants; I48.91 Unspecified atrial fibrillation; Z95.811 Presence of heart assist device
CPT/HCPCS: 36415; 80053; 83615; 85025; 85610

== ENCOUNTER 2018-01-10 13:56 | Outpatient (CLI) | payer MEDICARE, OTHER ==
[2018-01-10 14:08] LABS: BASOPHILS % 0.7 (0.0-1.5); EOSINOPHILS % 11.8 % (0.0-6.8); MEAN CORPUSCULAR HEMOGLOBIN 24.5 pg (28.0-34.0); MEAN CORPUSCULAR VOLUME 76.2 fl (80.0-100.0); NEUTROPHILS # 6.8 # k/uL (1.4-7.7)
[2018-01-10 14:45] LABS: eGFR (African) 49; eGFR (Non-African) 40
== END 2018-01-10 13:59 ==
LOC: LAB 13:56
PROVIDERS: ATTEND Internal Medicine
DX: I50.22 Chronic systolic (congestive) heart failure (principal); T82.7XXA Infection and inflammatory reaction due to other cardiac and vascular devices, implants and grafts, initial encounter; I25.5 Ischemic cardiomyopathy; Z79.01 Long term (current) use of anticoagulants; I48.91 Unspecified atrial fibrillation; Z95.811 Presence of heart assist device
CPT/HCPCS: 80053; 83615; 85025; 85610